=== PATIENT | male | born 1960 | race Caucasian/White ===

== ENCOUNTER 2020-08-03 06:36 | Emergency (ER) | payer SELFPAY ==
[2020-08-03 06:41] VITALS: BP 166/103; PULSE 84; RESP 28; TEMP 36.5; O2SAT 94; BMI 30.2
--- NOTE | 2020-08-03 07:06 | XRR_ITS ---
PROCEDURE INFORMATION: Exam: XR Chest, 1 View Exam date and time: 08/03/2020 7:17 AM Age: 60 years old Clinical indication: Dyspnea TECHNIQUE: Imaging protocol: XR of the chest Views: 1 view. COMPARISON: CR Chest 1 [place] [id number] 05/29/2019 9:48 AM FINDINGS: Lungs: No consolidation. Pleural space: No pleural effusion. No pneumothorax. Heart/Mediastinum: No cardiomegaly. Bones/joints: No acute fracture. Postsurgical changes of the left humerus. XR/XR chest 1V portable [id number] IMPRESSION: No acute findings.
--- NOTE | 2020-08-03 07:08 | ECG_ITS ---
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 Measurements Intervals [place] Rate: 69 P: 61 TN: 181 QRS: 9 QRSD: 87 T: 45 QT: 386 QTc: 414 Interpretive Statements SINUS RHYTHM INFERIOR MYOCARDIAL INFARCTION [40+ ms Q WAVE AND/OR ST/T ABNORMALITY IN II/aVF], PROBABLY OLD Compared to ECG 05/29/2019 09:30:56 Sinus tachycardia no longer present Electronically Signed On 08-04-2020 19:16:24 CDT by Richmond Garcia M.D. [id number]
[2020-08-03 07:34] LABS: Basophils # 0.1 10^3/uL (0.0-0.1); Eosinophils # 0.1 10^3/uL (0.0-0.8); Eosinophils % 1.1 %; Hematocrit 44.1 % (42.0-52.0); Hemoglobin 15.1 g/dL (11.7-16.6); Lymphocytes # 1.4 10^3/uL (0.8-4.8); Lymphocytes % 23.1 %; Mean Corpuscular HGB Conc 34.2 g/dL (30.0-36.0); Mean Corpuscular Hemoglobin 32.3 pg (28.0-34.0); Mean Corpuscular Volume 94.4 fL (80-94); Mean Platelet Volume 9.6 fL (7.4-10.4); Monocytes % 16.6 %; Neutrophils # 3.59 10^3/uL (1.8-7.7); Neutrophils % 57.9 %; Nucleated Red Blood Cells % 0 %; Platelet Count 248 10^3/cmm (130-400); Red Blood Count 4.67 10^6/uL (4.1-5.3); Red Cell Distribution Width 12.1 % (12.1-15.1); White Blood Count 6.2 10^3/uL (4.0-10.0)
[2020-08-03 07:45] LABS: INR 1.03 (0.8-1.2)
[2020-08-03 08:03] VITALS: BP 168/105; PULSE 93; RESP 27; O2SAT 97
--- NOTE | 2020-08-03 08:03 | PC.NURSE ---
Upon ED rounding, patient reported having friends over at house last night, feeling funny after his friends left and wondering if they had put something in his beer. Patient appears physically restless with constant facial and body movements. Report having high anxiety which he does not take any medications for.
[2020-08-03 08:05] LABS: Lactic Sepsis W/Reflex 1.5 mmol/L (0.5-2.2); Troponin(5th) Baseline 10 ng/L (0-15)
[2020-08-03 08:05] LABS: Add Urine Microscopic? NO
[2020-08-03 08:08] LABS: Bilirubin Urine Neg (Negative); Blood Urine Neg (Negative); Glucose Urine UA Norm (Normal); Ketones Urine 1+ (Negative); Leukocyte Esterase Urine Negative (Negative); Nitrate Urine Negative (Negative); Protein Urine Neg (Negative); Specific Gravity, Urine 1.025 (1.005-1.030); Urine Appearance Clear (CLEAR); Urine Color Dark Yellow (Yellow); Urobilinogen Urine Norm (Negative); pH Urine 5 (5-7)
[2020-08-03 08:14] LABS: Alanine Aminotransferase 102 U/L (0-41); Albumin Level 4.1 g/dL (3.5-5.2); Alkaline Phosphatase 90 IU/L (40-130); Anion Gap 18.1 (5-19); Aspartate Amino Transferase 62 U/L (0-40); Blood Urea Nitrogen 15 mg/dL (8-23); Calcium 8.6 mg/dL (8.5-10.5); Carbon Dioxide 19 mmol/L (22-29); Chloride 103 mmol/L (98-107); Creatinine Clr Calc Pharmacy 126.1224; Globulin 3.6 g/dL (1.3-4.6); Glomerular Filtration Rate 98.3 mL/min (90-130); Glucose 138 mg/dL (65-115); Magnesium 2.2 mg/dL (1.7-2.3); NT Pro B Type Natriuretic Pept 75 pg/mL (0-125); Osmolality Calculated 285 mOsm/kg (285-295); Potassium 4.1 mmol/L (3.5-5.1); Sodium 136 mmol/L (136-145); Total Bilirubin 0.9 mg/dL (0.15-1.2); Total Protein 7.7 g/dL (6.6-8.7)
[2020-08-03 08:17] LABS: Amphetamines Screen Urine Positive (Negative); Barbiturates Screen Urine Negative (Negative); Benzodiazepines Screen Urine Negative (Negative); Cocaine Screen Urine Negative (Negative); Opiate Screen Urine Negative (Negative); PCP Screen Urine Negative (Negative); THC Screen Urine Negative (Negative)
--- NOTE | 2020-08-03 08:54 | ED_ITS ---
HPI - SOB/Dyspnea General: Chief Complaint: Shortness of Breath/Dyspnea Stated Complaint: fluid build up Time Seen by Provider: 08/03/20 07:03 History of Present Illness: HPI Narrative: This patient is a 60-year-old male who presents today complaining of some shortness of breath and fluid retention. He said he typically has some swelling in his legs but today the swelling in his legs is gone and it is all in his belly. He denies shortness of breath but ap pears to be a little short of breath. He said that is from wearing the mask. He is a little jittery and anxious. He says he thinks 1 of his buddies might of slipped something into his beer last night while they were playing cards. He denies chest pain. Denies a history of CHF or other cardiac issues. He does have high blood pressure and takes hydrochlorothiazide for that. He is not on any other fluid pills. MD elicited complaint: shortness of breath Onset (ago): day(s) (Just today) Timing: constant Associated symptoms: Reports abdominal pain; Deny chest pain, fever(s), nausea or vomiting Review of Systems General: Reports: 10 or more systems reviewed and unremarkable except in HPI and below Const: Denies: fever(s), chills, fatigue or malaise Eyes: Denies: change in vision ENMT: Denies: odynophagia Card: Denies: chest pain or swelling of feet/ankles Resp: Denies: dyspnea, productive cough or non-productive cough GI: Reports: abdominal pain and bloating; Denies: nausea or vomiting : Denies: flank pain Musc: Denies: neck pain or back pain Skin/Breast: Denies: rash Neuro: Denies: headache(s), numbness in extremities or weakness in extremities Ke/Lymph: Denies: easy bruising or easy bleeding PFS ED PFSH: Social History Smoking and tobacco status: former smoker Alcohol intake: current Alcohol intake frequency: 3 or more drinks per day Lives independently: Yes Household members: none Marital status: Single service: No Physical Exam Const: COMMON NORMALS: no acute distress, patient oriented x3, no limitations and alert GENERAL APPEARANCE: cooperative and anxious HENMT: HEAD & SCALP: normal to inspection FACE & SINUS: normal facial exam Eye: GENERAL EYE: appearance normal, both eyes and all related structures Neck/C-Spine: COMMON NORMALS: supple, no meningeal signs and no JVD Chest: COMMONS NORMALS: normal inspection of the chest Resp: COMMON NORMALS: normal respiratory effort, No use of accessory muscles and clear to auscultation bilaterally AUSCULTATION: clear to auscultation bilaterally Cardio: COMMON NORMALS: no JVD, regular rate, regular rhythm and No murmurs present (Cardio) RATE: regular rate RHYTHM: regular rhythm GI: COMMON NORMALS: Normal to inspection, nondistended, normoactive bowel sounds present and Soft to palpation INSPECTION: Yes normal to inspection AUSCULTATION: Yes normoactive bowel sounds PALPATION: Yes Soft to palpation and Yes Tenderness to palpation present (GI) (Mild, right upper quadrant) Back/Pelvis: COMMON NORMALS: thoracic and lumbar spine normal to inspection Extremity: COMMON NORMALS: normal to inspection Neuro: COMMON NORMALS: patient oriented x3, moves all extremities, no focal motor deficits and no sensory deficits noted SENSORIUM/ORIENTATION: Yes alert MENINGEAL SIGNS: Yes no meningeal signs Psych: COMMON NORMALS: mental status grossly normal, cooperative and normal affect Skin: COMMON NORMALS: no rashes or lesions noted and turgor normal GENERAL SKIN EXAM: no rashes or lesions noted and turgor normal Course ED course: Patient refused an abdominal US due to concern over cost. We discussed the need to get follow up and he says he will see Dr. Aden tomorrow. Vital Signs: Vital signs: Vital Signs Temperature 97.7 F 08/03/20 06:41 Pulse Rate 93 08/03/20 09:00 Respiratory Rate 22 H 08/03/20 09:00 Blood Pressure 166/110 08/03/20 09:00 Pulse Oximetry 97 08/03/20 09:00 MDM - SOB/Dyspnea Lab Data: Labs: Lab Results 08/03/20 08/03/20 08/03/20 Range/Units 07:24 07:24 07:24 WBC 6.2 (4.0-10.0) 10^3/ uL RBC 4.67 (4.1-5.3) 10^6/u L Hgb 15.1 (11.7-16.6) g/dL Hct 44.1 (42.0-52.0) % MCV 94.4 H (80-94) fL MCH 32.3 (28.0-34.0) pg MCHC 34.2 (30.0-36.0) g/dL RDW 12.1 (12.1-15.1) % Plt Count 248 (130-400) 10^3/c mm MPV 9.6 (7.4-10.4) fL Neut % (Auto) 57.9 % Lymph % (Auto) 23.1 % [place] % (Auto) 16.6 % Eos % (Auto) 1.1 % Baso % (Auto) 1.0 % Neut # (Auto) 3.59 (1.8-7.7) 10^3/u L Lymph # (Auto) 1.4 (0.8-4.8) 10^3/u L [place] # (Auto) 1.0 H (0.2-0.9) 10^3/u L Eos # (Auto) 0.1 (0.0-0.8) 10^3/u L Baso # (Auto) 0.1 (0.0-0.1) 10^3/u L Nucleated RBC % (a uto) 0 % Nucleated RBCs # 0.0 /100WBC PT 13.90 (12.1-14.9) SECO NDS INR 1.03 (0.8-1.2) Sodium 136 (136-145) mmol/L Potassium 4.1 (3.5-5.1) mmol/L Chloride 103 (98-107) mmol/L Carbon Dioxide 19 L (22-29) mmol/L Anion Gap 18.1 (5-19) BUN 15 (8-23) mg/dL Creatinine 0.8 (0.7-1.2) mg/dL GFR Calculation 98.3 (90-130) mL/min Glucose 138 H (65-115) mg/dL Calculated Osmolal ity 285 (285-295) mOsm/k g Lactic Acid (0.5-2.2) mmol/L Calcium 8.6 (8.5-10.5) mg/dL Magnesium 2.2 (1.7-2.3) mg/dL Total Bilirubin 0.9 (0.15-1.2) mg/dL AST 62 H (0-40) U/L ALT 102 H (0-41) U/L Alkaline Phosphata se 90 (40-130) IU/L Troponin T Baselin e (0-15) ng/L NT-Pro-B Natriuret Pep 75 (0-125) pg/mL Total Protein 7.7 (6.6-8.7) g/dL Albumin 4.1 (3.5-5.2) g/dL Globulin 3.6 (1.3-4.6) g/dL Urine Color (Yellow) Urine Appearance (CLEAR) Urine pH (5-7) Ur Specific Gravit y (1.005-1.030) Urine Protein (Negative) Urine Glucose (UA) (Normal) Urine Ketones (Negative) Urine Blood (Negative) Urine Nitrate (Negative) Urine Bilirubin (Negative) Urine Urobilinogen (Negative) mg/dL Ur Leukocyte Cherelle ase (Negative) Urine Opiates Scre en (Negative) ng/mL Ur Barbiturates Sc reen (Negative) ng/mL Ur Phencyclidine S crn (Negative) ng/mL Ur Amphetamines Sc reen (Negative) ng/mL U Benzodiazepines Scrn (Negative) ng/mL Urine Cocaine Scre en (Negative) ng/mL U Marijuana (THC) Screen (Negative) ng/mL 08/03/20 08/03/20 08/03/20 Range/Units 07:24 07:24 07:50 WBC (4.0-10.0) 10^3/ uL RBC (4.1-5.3) 10^6/u L Hgb (11.7-16.6) g/dL Hct (42.0-52.0) % MCV (80-94) fL MCH (28.0-34.0) pg MCHC (30.0-36.0) g/dL RDW (12.1-15.1) % Plt Count (130-400) 10^3/c mm MPV (7.4-10.4) fL Neut % (Auto) % Lymph % (Auto) % [place] % (Auto) % Eos % (Auto) % Baso % (Auto) % Neut # (Auto) (1.8-7.7) 10^3/u L Lymph # (Auto) (0.8-4.8) 10^3/u L [place] # (Auto) (0.2-0.9) 10^3/u L Eos # (Auto) (0.0-0.8) 10^3/u L Baso # (Auto) (0.0-0.1) 10^3/u L Nucleated RBC % (a uto) % Nucleated RBCs # /100WBC PT (12.1-14.9) SECO NDS INR (0.8-1.2) Sodium (136-145) mmol/L Potassium (3.5-5.1) mmol/L Chloride (98-107) mmol/L Carbon Dioxide (22-29) mmol/L Anion Gap (5-19) BUN (8-23) mg/dL Creatinine (0.7-1.2) mg/dL GFR Calculation (90-130) mL/min Glucose (65-115) mg/dL Calculated Osmolal ity (285-295) mOsm/k g Lactic Acid 1.5 (0.5-2.2) mmol/L Calcium (8.5-10.5) mg/dL Magnesium (1.7-2.3) mg/dL Total Bilirubin (0.15-1.2) mg/dL AST (0-40) U/L ALT (0-41) U/L Alkaline Phosphata se (40-130) IU/L Troponin T Baselin e 10 (0-15) ng/L NT-Pro-B Natriuret Pep (0-125) pg/mL Total Protein (6.6-8.7) g/dL Albumin (3.5-5.2) g/dL Globulin (1.3-4.6) g/dL Urine Color Dark yellow (Yellow) Urine Appearance Clear (CLEAR) Urine pH 5 (5-7) Ur Specific Gravit y 1.025 (1.005-1.030) Urine Protein Neg (Negative) Urine Glucose (UA) Norm (Normal) Urine Ketones 1+ H (Negative) Urine Blood Neg (Negative) Urine Nitrate Negative (Negative) Urine Bilirubin Neg (Negative) Urine Urobilinogen Norm (Negative) mg/dL Ur Leukocyte Cherelle ase Negative (Negative) Urine Opiates Scre en (Negative) ng/mL Ur Barbiturates Sc reen (Negative) ng/mL Ur Phencyclidine S crn (Negative) ng/mL Ur Amphetamines Sc reen (Negative) ng/mL U Benzodiazepines Scrn (Negative) ng/mL Urine Cocaine Scre en (Negative) ng/mL U Marijuana (THC) Screen (Negative) ng/mL 08/03/20 Range/Units 07:50 WBC (4.0-10.0) 10^3/ uL RBC (4.1-5.3) 10^6/u L Hgb (11.7-16.6) g/dL Hct (42.0-52.0) % MCV (80-94) fL MCH (28.0-34.0) pg MCHC (30.0-36.0) g/dL RDW (12.1-15.1) % Plt Count (130-400) 10^3/c mm MPV (7.4-10.4) fL Neut % (Auto) % Lymph % (Auto) % [place] % (Auto) % Eos % (Auto) % Baso % (Auto) % Neut # (Auto) (1.8-7.7) 10^3/u L Lymph # (Auto) (0.8-4.8) 10^3/u L [place] # (Auto) (0.2-0.9) 10^3/u L Eos # (Auto) (0.0-0.8) 10^3/u L Baso # (Auto) (0.0-0.1) 10^3/u L Nucleated RBC % (a uto) % Nucleated RBCs # /100WBC PT (12.1-14.9) SECO NDS INR (0.8-1.2) Sodium (136-145) mmol/L Potassium (3.5-5.1) mmol/L Chloride (98-107) mmol/L Carbon Dioxide (22-29) mmol/L Anion Gap (5-19) BUN (8-23) mg/dL Creatinine (0.7-1.2) mg/dL GFR Calculation (90-130) mL/min Glucose (65-115) mg/dL Calculated Osmolal ity (285-295) mOsm/k g Lactic Acid (0.5-2.2) mmol/L Calcium (8.5-10.5) mg/dL Magnesium (1.7-2.3) mg/dL Total Bilirubin (0.15-1.2) mg/dL AST (0-40) U/L ALT (0-41) U/L Alkaline Phosphata se (40-130) IU/L Troponin T Baselin e (0-15) ng/L NT-Pro-B Natriuret Pep (0-125) pg/mL Total Protein (6.6-8.7) g/dL Albumin (3.5-5.2) g/dL Globulin (1.3-4.6) g/dL Urine Color (Yellow) Urine Appearance (CLEAR) Urine pH (5-7) Ur Specific Gravit y (1.005-1.030) Urine Protein (Negative) Urine Glucose (UA) (Normal) Urine Ketones (Negative) Urine Blood (Negative) Urine Nitrate (Negative) Urine Bilirubin (Negative) Urine Urobilinogen (Negative) mg/dL Ur Leukocyte Cherelle ase (Negative) Urine Opiates Scre en Negative (Negative) ng/mL Ur Barbiturates Sc reen Negative (Negative) ng/mL Ur Phencyclidine S crn Negative (Negative) ng/mL Ur Amphetamines Sc reen Positive H (Negative) ng/mL U Benzodiazepines Scrn Negative (Negative) ng/mL Urine Cocaine Scre en Negative (Negative) ng/mL U Marijuana (THC) Screen Negative (Negative) ng/mL Discharge Plan Discharge Patient Disposition: Home Clinical Impression: Abdominal distension Condition: Stable Prescriptions: No Action acetaminophen [Tylenol Extra Strength] 500 mg tablet 500 mg PO QID PRNRF: 0 lisinopril 20 mg tablet 20 mg PO DAILY RF: 0 hydrochlorothiazide 25 mg tablet 25 mg PO DAILY RF: 0 citalopram [Celexa] 20 mg tablet 20 mg PO DAILY RF: 0 atorvastatin [Lipitor] 10 mg tablet 10 mg PO DAILY RF: 0 Discharge Orders: Discharge Order (Routine); Ordered 08/03/20 Ordered By: Marina Tejada Discharge Diet: Usual diet Discharge Activity: Resume usual activity Patient Instructions: Abdominal Pain (ED) Activity Restrictions/Additional Instructions: Be sure to see your doctor tomorrow for further evaluation. If you are getting worse in any way please return to the ER and let us complete her evaluation of your symptoms. Discharge Date/Time: 08/03/20 09:23 Coding Level of Care Code ED Packing Room Inspector for Ranig Fwd Exam Comprehensive
[2020-08-03 09:00] VITALS: BP 166/110; PULSE 93; RESP 22; O2SAT 97
== END 2020-08-03 09:23 | disposition home or self-care (01) ==
PROVIDERS: Emergency Provider Emergency Medicine
DX: R14.0 Abdominal distension (gaseous) (principal); Z87.891 Personal history of nicotine dependence
CPT/HCPCS: 12345; 71045; 80053; 80306; 81003; 83605; 83735; 83880; 84484; 85025; 85610; 93005; 99283

== ENCOUNTER → 2020-08-21 11:42 | Outpatient (BNVA) | payer SELFPAY | PROVIDERS: Visit Provider Internal Medicine | DX: B19.10 Unspecified viral hepatitis B without hepatic coma (principal); E11.9 Type 2 diabetes mellitus without complications; B19.20 Unspecified viral hepatitis C without hepatic coma; R63.4 Abnormal weight loss; Z86.19 Personal history of other infectious and parasitic diseases; F10.10 Alcohol abuse, uncomplicated; R18.8 Other ascites | CPT/HCPCS: 80053; 82105; 85025 ==

== ENCOUNTER → 2020-08-27 10:40 | Day surgery (SDC) | payer SELFPAY ==
--- NOTE | 2020-08-27 11:00 | US_ITS ---
WS: [id number] Abdominal ultrasound, limited. History: Evaluate for ascites. Comparison: None. All 4 quadrants are imaged by ultrasound to evaluate for ascites. No ascites identified. US/US abdomen limited [id number] IMPRESSION: No peritoneal ascites.
== END ==
PROVIDERS: Visit Provider Internal Medicine
DX: B19.10 Unspecified viral hepatitis B without hepatic coma (principal); R18.8 Other ascites
CPT/HCPCS: 76705

== ENCOUNTER 2021-07-09 22:52 | Inpatient (IN) | payer MEDICAID, SELFPAY ==
[2021-07-09 23:07] VITALS: BMI 28.8
[2021-07-09 23:19] VITALS: BP 136/91; PULSE 97; RESP 18; TEMP 36.7; O2SAT 97
[2021-07-09] MEDS: nicotine 2 mg Gum BUCCAL (23:39)
[2021-07-10 00:43] LABS: Add Urine Microscopic? NO; Charge for UA Resulting for Rev
[2021-07-10 01:06] LABS: Bilirubin Urine Neg (Negative); Blood Urine Neg (Negative); Glucose Urine UA Norm (Normal); Ketones Urine Negative (Negative); Leukocyte Esterase Urine Negative (Negative); Nitrate Urine Negative (Negative); Protein Urine Neg (Negative); Urine Appearance Clear (CLEAR); Urine Color Yellow (Yellow); Urobilinogen Urine Norm (Negative); pH Urine 6.5 (5-7)
[2021-07-10 02:49] LABS: Amphetamines Screen Urine Negative (Negative); Barbiturates Screen Urine Negative (Negative); Benzodiazepines Screen Urine Negative (Negative); Cocaine Screen Urine Negative (Negative); Opiate Screen Urine Negative (Negative); PCP Screen Urine Negative (Negative); THC Screen Urine Negative (Negative)
[2021-07-10 06:00] VITALS: BP 130/87; PULSE 84; RESP 16; TEMP 36.9; O2SAT 98
[2021-07-10] MEDS: nicotine 2 mg Gum BUCCAL ×2 (06:58→19:46)
[2021-07-10] MEDS: ibuprofen 800 mg tablet PO ×2 (06:58→13:40)
--- NOTE | 2021-07-10 07:12 | PM.NHP ---
Providers/Chief Complaint Admitting Physician: Jose Ball MD Chief Complaint: si/substance abuse HPI NPU History of Present Illness Marcos Lazar is a 61 year old male who presented to an outside hospital with affidavits reporting that he was labile, tearful, threatening and apologizing almost all at once. He reported he had guns at home and needed help with his mood and addiction or he was going to kill himself with one of his guns. He had multiple affidavits and everything notarized but once that short of completing a 96-hour hold and he was transferred to [facility] and admitted to the neuropsychiatric unit for definitive treatment of those issues. He presents today reporting that he had 1 previous psychiatric admission here about 7 to 8 years ago. Since of that admission back in 2012 was noted. He denies outpatient services he reports he has had a history of being on medication but nothing recently. He reports he been on medication for depression and anxiety. He denies any previous suicide attempts. He reports that he smokes about a pack and a half of cigarettes a day, has had alcohol off and on, marijuana denied he denied other illicit drugs except methamphetamine. His blood alcohol was 132 at the outside hospital and his UDS was negative but he reports he has struggled with methamphetamine with previous daily difficulties but now is been headedness. He is never to rehab and reports he had 2 DUIs the last 1 was maybe 5+ years ago. He reports his been 3 days without drinks that he got a tallboy that he did not follow with a bunch of whiskey and he wonders if he got alcohol poisoning and was just feeling strange at the time that he was admitted. He denies current lethality and saying that he feels better now wants to be discharged. Psychiatric history: As above. Substance abuse history: As above. Family history: He endorsed mental health issues on his mom's side denied mental health issues on his father side, addiction issues on either side of the family but does report he had uncles on his mom side of committed suicide. Developmental history: There were no problems with the , or delivery, learned to walk and talk and met developmental milestones on time, and denies need for speech therapy, learning support, emotional support or special education classes. Psychosocial history: He reports his parents were getting he was born and they have 3 sons of which he is the middle son. He reports his childhood was really good and he denies emotional, physical or sexual abuse. He reports that he made it to the 12th grade and ultimately got his GED. He endorses being heterosexual with his long relationship being 6 years. He is been one time once, has no children, is never in the and reports that he goes to the [employer]. He reports that he worked for 18 years for [employer] and lives in an apartment alone. Legal history: He reports he been in half-way before but the longest x3 days. Medical history: He reports he is concerned that he has cirrhosis. Meds NPU Home Medications Medication Instructions Recorded Confirmed Last Taken Type ibuprofen [Motrin] 800 mg PO Q6H PRN 07/09/21 07/09/21 07/09/21 09:00 History Allergies Allergy/AdvReac Type Severity Reaction Status Date / Time No Known Allergies Allergy Verified 08/21/20 10:21 PFS NPU PFSH: Social History (Updated 08/21/20 @ 10:23 by RELL Small) Smoking and tobacco status: former smoker Alcohol intake: current Alcohol intake frequency: 3 or more drinks per day Lives independently: Yes Household members: none Marital status: Single service: No History of recent travel: No Mental Status Exam MSE Comments: This is a overweight older white male with a bald head and hospital scrubs with adequate grooming and limited eye contact. No abnormal movements except for mild ataxia of gait and mild psychomotor retardation cooperative with exam in mild distress. Speech was decreased rate and volume. Mood good, affect slightly subdued. Thought process organized. Thought content: Patient denied suicidal or homicidal ideation, there are no delusions reported or noted, he denies any auditory or visual hallucinations. Attention concentration were intact and memory appeared mostly reliable but none were formally tested. He is alert and oriented x3. Insight and judgment are limited and impulse control is impaired. Vitals/I&O/Wt Last Vital Signs Temp 98.4 F 07/10/21 06:00 Pulse 84 07/10/21 06:00 Resp 16 07/10/21 06:00 BP 130/87 07/10/21 06:00 Pulse Ox 98 07/10/21 06:00 Weight last 48 hrs Weight 102 kg Weight 102 kg A&P Assessment and plan (1) Ascites: Status: Acute (2) ETOH abuse: Status: Acute (3) Hepatitis B: Status: Acute Qualifiers: Viral hepatitis chronicity: chronic Hepatic coma status: without hepatic coma (4) Hepatitis C virus infection cured after antiviral drug therapy: Status: Acute (5) Methamphetamine abuse: Status: Acute (6) Depression: Status: Acute (7) Anxiety: Status: Acute Additional A&P Information This is a 61-year-old white male with a long history of addiction and depression and anxiety who presents with active alcohol use expressing concerns about his addiction in general and wanting help at an outside hospital with threats of shooting himself with a gun who presents now reporting that he feels fine and it must of an alcohol poisoning and he would like to discharge. 1. Continue current medication. We will continue to explore possible medication choices. 2. Continue every 15 minute checks for safety. 3. Encourage individual, group and milieu therapies. 4. Encourage sober living treatment after discharge at the highest level of care to which he is willing to commit. Involuntary Hold Information 96 Hour Hold: 96 Hour Involuntary Admission: No Attestations NPU Medical Necessity Statement*: Inpatient hospitalization is medically necessary and the clinically appropriate intervention at this time. We will monitor medications and make changes as indicated. Patient will be in the hospital for over two midnights. Likely length of stay 3 to 5 days. Coding Level of Care Code Acute Web Coordinator for Ramonita Lantigua Diagnoses Ascites R18.8 ETOH abuse F10.10 Hepatitis B B19.10 Viral hepatitis chronicity: chronic Hepatic coma status: without hepatic coma Hepatitis C virus infection cured after antiviral drug therapy Z86.19 Methamphetamine abuse F15.10 Depression F32.9 Anxiety F41.9
[2021-07-10] MEDS: multivitamin therapeutic Tablet 1 TAB PO (09:58)
[2021-07-10] MEDS: thiamine 100 mg Tablet PO (09:58)
[2021-07-10] MEDS: folic acid 1 mg Tablet PO (09:59)
[2021-07-10] MEDS: nicotine 21 mg Patch 1 PATCH TRANSDERMA (10:00)
[2021-07-10 14:00] VITALS: BP 129/74; PULSE 62; RESP 17; TEMP 36.3; O2SAT 97
[2021-07-10] MEDS: citalopram 20 mg Tablet PO (19:45)
[2021-07-10 22:00] VITALS: BP 137/87; PULSE 83; RESP 18; TEMP 36.8; O2SAT 96
[2021-07-11] MEDS: ibuprofen 800 mg tablet PO ×3 (04:37→22:05)
[2021-07-11 06:00] VITALS: BP 121/78; PULSE 64; RESP 17; TEMP 36.9; O2SAT 96
[2021-07-11] MEDS: folic acid 1 mg Tablet PO (09:47)
[2021-07-11] MEDS: nicotine 21 mg Patch 1 PATCH TRANSDERMA (09:47)
[2021-07-11] MEDS: thiamine 100 mg Tablet PO (09:47)
[2021-07-11] MEDS: citalopram 20 mg Tablet PO (09:47)
[2021-07-11] MEDS: multivitamin therapeutic Tablet 1 TAB PO (09:47)
[2021-07-11 14:00] VITALS: BP 131/72; PULSE 61; RESP 17; TEMP 36.5; O2SAT 97
--- NOTE | 2021-07-11 18:42 | PM.NPN ---
Subjective NPU Subjective: Interval history: Patient presents today continue to focus on discharge. Not expressing much interest in medications or treatment. We agreed we would reach out to family to see whether they agreed this was a drunken mistake or whether they have greater concerns about his current safety and then consider discharge in the next 48 hours. Mental Status Exam MSE Comments: This is a overweight older white male with a bald head and hospital scrubs with adequate grooming and limited eye contact. No abnormal movements except for mild psychomotor retardation. Cooperative with exam in no acute distress. Speech was normal rate and decreased volume. Mood good, affect slightly subdued. Thought process organized. Thought content: Patient denied suicidal or homicidal ideation, there are no delusions reported or noted, he denies any auditory or visual hallucinations. Attention concentration were intact and memory appeared mostly reliable but none were formally tested. He is alert and oriented x3. Insight and judgment are limited and impulse control is limited. Vitals/I&O/Wt Last Vital Signs Temp 98.3 F 07/11/21 20:01 Pulse 72 07/11/21 20:01 Resp 17 07/11/21 20:01 BP 141/86 07/11/21 20:01 Pulse Ox 96 07/11/21 20:01 A&P Additional A&P Information (1) Ascites: (2) ETOH abuse: (3) Hepatitis B: (4) Hepatitis C virus infection cured after antiviral drug therapy: (5) Methamphetamine abuse: (6) Depression: (7) Anxiety: Additional A&P Information This is a 61-year-old white male with a long history of addiction and depression and anxiety who presents with active alcohol use expressing concerns about his addiction in general and wanting help at an outside hospital with threats of shooting himself with a gun who presents now reporting that he feels fine and it must of an alcohol poisoning and he would like to discharge. 1. Continue current medication. We will continue to explore possible medication choices. 2. Continue every 15 minute checks for safety. 3. Encourage individual, group and milieu therapies. 4. Encourage sober living treatment after discharge at the highest level of care to which he is willing to commit. Involuntary Hold Information 96 Hour Hold: 96 Hour Involuntary Admission: No Attestations NPU Medical Necessity Statement*: Inpatient hospitalization is medically necessary and the clinically appropriate intervention at this time. We will monitor medications and make changes as indicated. Likely length of stay 1-4 days. Coding Level of Care Code Acute Software Design Analyst for Ramonita Lantigua
[2021-07-11 20:01] VITALS: BP 141/86; PULSE 72; RESP 17; TEMP 36.8; O2SAT 96
[2021-07-11] MEDS: nicotine 2 mg Gum BUCCAL (22:05)
[2021-07-12 05:46] VITALS: BP 132/70; PULSE 71; RESP 17; TEMP 36.6; O2SAT 99
[2021-07-12] MEDS: multivitamin therapeutic Tablet 1 TAB PO (09:41)
[2021-07-12] MEDS: thiamine 100 mg Tablet PO (09:41)
[2021-07-12] MEDS: citalopram 20 mg Tablet PO (09:41)
[2021-07-12] MEDS: folic acid 1 mg Tablet PO (09:41)
[2021-07-12] MEDS: ibuprofen 800 mg tablet PO ×2 (09:49→18:48)
--- NOTE | 2021-07-12 10:29 | P.PN_ITS ---
Subjective NPU Subjective: Interval history: Presents today continuing to give the same report. He continues to say that he would be safe upon discharge and is suggesting that there are not weapons. Clearly in the affidavits there are concerns raised about the access E we discussed the treatment team would continue the morning and be able to attempt to get the collateral information necessary for us to feel comfortable with discharging. Mental Status Exam MSE Comments: This is a overweight older white male with a bald head and hospital scrubs with adequate grooming and limited eye contact. No abnormal movements except for mild psychomotor retardation. Cooperative with exam in no acute distress. Speech was normal rate and decreased volume. Mood good, affect brighter. Thought process organized. Thought content: Patient denied suicidal or homicidal ideation, there are no delusions reported or noted, he denies any auditory or visual hallucinations. Attention concentration were intact and memory appeared mostly reliable but none were formally tested. He is alert and oriented x3. Insight and judgment are limited, but improving and impulse control is limited. Vitals/I&O/Wt Last Vital Signs Temp 97.9 F 07/12/21 05:46 Pulse 71 07/12/21 05:46 Resp 17 07/12/21 05:46 BP 132/70 07/12/21 05:46 Pulse Ox 99 07/12/21 05:46 Weight last 48 hrs Weight 84.912 kg Weight 84.912 kg Weight 83.518 kg Weight 102 kg A&P Additional A&P Information (1) Ascites: (2) ETOH abuse: (3) Hepatitis B: (4) Hepatitis C virus infection cured after antiviral drug therapy: (5) Methamphetamine abuse: (6) Depression: (7) Anxiety: Additional A&P Information This is a 61-year-old white male with a long history of addiction and depression and anxiety who presents with active alcohol use expressing concerns about his addiction in general and wanting help at an outside hospital with threats of shooting himself with a gun who presents now reporting that he feels fine and it must of an alcohol poisoning and he would like to discharge. 1. Continue current medication. 2. Continue every 15 minute checks for safety. 3. Encourage individual, group and milieu therapies. 4. Encourage sober living treatment after discharge at the highest level of care to which he is willing to commit. 5. The vessel collateral information, identify presence of guns or not, and safety for discharge Involuntary Hold Information 96 Hour Hold: 96 Hour Involuntary Admission: No Attestations NPU Medical Necessity Statement*: Inpatient hospitalization is medically necessary and the clinically appropriate intervention at this time. We will monitor medications and make changes as indicated. Likely length of stay 1-3 days. 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
[2021-07-12 14:00] VITALS: BP 128/72; PULSE 54; RESP 17; TEMP 36.7; O2SAT 97
[2021-07-12 20:10] VITALS: BP 116/81; PULSE 81; RESP 19; TEMP 36.6; O2SAT 93
[2021-07-12] MEDS: nicotine 2 mg Gum BUCCAL (21:42)
[2021-07-12] MEDS: hyDROXYzine 25 mg Capsule 50 MG PO (21:44)
[2021-07-12] MEDS: trazodone 50 mg Tablet PO (21:44)
[2021-07-13 06:00] VITALS: BP 108/70; PULSE 68; RESP 16; TEMP 37.4; O2SAT 97
[2021-07-13] MEDS: citalopram 20 mg Tablet PO (08:56)
[2021-07-13] MEDS: multivitamin therapeutic Tablet 1 TAB PO (08:56)
[2021-07-13] MEDS: folic acid 1 mg Tablet PO (08:56)
[2021-07-13] MEDS: thiamine 100 mg Tablet PO (08:56)
[2021-07-13] MEDS: nicotine 21 mg Patch 1 PATCH TRANSDERMA (08:57)
[2021-07-13] MEDS: ibuprofen 800 mg tablet PO ×2 (10:51→17:20)
[2021-07-13 14:00] VITALS: BP 131/76; PULSE 66; RESP 18; TEMP 36.2; O2SAT 96
--- NOTE | 2021-07-13 18:48 | P.PN_ITS ---
Subjective NPU Subjective: Interval history: I spoke with Dr. Ball and met with the treatment team to discuss the patient's progress. He was sent here because he had made credible threats of shooting himself with a gun. He has been improving while here. We will need to contact his family members to make sure the guns have been removed from the home. Mental Status Exam MSE Comments: This is a overweight older white male with a bald head and hospital scrubs with adequate grooming and limited eye contact. No abnormal movements except for mild psychomotor retardation. Cooperative with exam in no acute distress. Speech was normal rate and decreased volume. Mood good, affect brighter. Thought process organized. Thought content: Patient denied suicidal or homicidal ideation, there are no delusions reported or noted, he denies any auditory or visual hallucinations. Attention concentration were intact and memory appeared mostly reliable but none were formally tested. He is alert and oriented x3. Insight and judgment are limited, but improving and impulse control is limited. Vitals/I&O/Wt Last Vital Signs Temp 98.4 F 07/14/21 06:00 Pulse 55 L 07/14/21 06:00 Resp 19 H 07/14/21 06:00 BP 131/77 07/14/21 06:00 Pulse Ox 97 07/14/21 06:00 Weight last 48 hrs Weight 84.912 kg Weight 84.912 kg A&P Assessment and plan (1) Depression: Status: Acute (2) Anxiety: Status: Acute (3) Methamphetamine abuse: Status: Acute (4) Ascites: Status: Acute (5) ETOH abuse: Status: Acute (6) Hepatitis B: Status: Acute Qualifiers: Viral hepatitis chronicity: chronic Hepatic coma status: without hepatic coma (7) Hepatitis C virus infection cured after antiviral drug therapy: Status: Acute Additional A&P Information This is a 61-year-old white male with a long history of addiction and depression and anxiety who presents with active alcohol use expressing concerns about his addiction in general and wanting help at an outside hospital with threats of shooting himself with a gun who presents now reporting that he feels fine and it must of an alcohol poisoning and he would like to discharge. 1. Continue current medication. 2. Continue every 15 minute checks for safety. 3. Encourage individual, group and milieu therapies. 4. Encourage sober living treatment after discharge at the highest level of care to which he is willing to commit. 5. The vessel collateral information, identify presence of guns or not, and safety for discharge Involuntary Hold Information 96 Hour Hold: 96 Hour Involuntary Admission: No Attestations NPU Medical Necessity Statement*: Inpatient hospitalization is medically necessary and the clinically appropriate intervention at this time. We will monitor medications and make changes as indicated. Likely length of stay 1-3 days. 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
[2021-07-13 21:35] VITALS: BP 109/68; PULSE 82; RESP 20; TEMP 36.6; O2SAT 97
[2021-07-13] MEDS: trazodone 50 mg Tablet PO (21:41)
[2021-07-13] MEDS: nicotine 2 mg Gum BUCCAL (21:41)
[2021-07-13] MEDS: hyDROXYzine 25 mg Capsule 50 MG PO (21:41)
[2021-07-14 06:00] VITALS: BP 131/77; PULSE 55; RESP 19; TEMP 36.9; O2SAT 97
[2021-07-14] MEDS: citalopram 20 mg Tablet PO (08:49)
[2021-07-14] MEDS: folic acid 1 mg Tablet PO (08:49)
[2021-07-14] MEDS: thiamine 100 mg Tablet PO (08:50)
[2021-07-14] MEDS: multivitamin therapeutic Tablet 1 TAB PO (08:50)
[2021-07-14] MEDS: nicotine 21 mg Patch 1 PATCH TRANSDERMA (08:50)
[2021-07-14] MEDS: ibuprofen 800 mg tablet PO (11:57)
--- NOTE | 2021-07-14 12:17 | NPU.GN ---
[facility] Group Topic:Thought Processing General Mood of Group: Patient did not come to group today.
--- NOTE | 2021-07-14 12:26 | PM.NDC ---
Diagnoses at Discharge Discharge Diagnosis (1) Depression: Status: Resolved (2) Anxiety: Status: Resolved (3) Methamphetamine abuse: Status: Resolved (4) Ascites: Status: Resolved (5) ETOH abuse: Status: Resolved (6) Hepatitis B: Status: Acute Qualifiers: Hepatic coma status: without hepatic coma Viral hepatitis chronicity: chronic (7) Hepatitis C virus infection cured after antiviral drug therapy: Status: Acute Reason for Visit Reason for Visit: si/substance abuse Brief History: Marcos Lazar is a 61 year old male who presented to an outside hospital with affidavits reporting that he was labile, tearful, threatening and apologizing almost all at once. He reported he had guns at home and needed help with his mood and addiction or he was going to kill himself with one of his guns. He had multiple affidavits and everything notarized but once that short of completing a 96-hour hold and he was transferred to [facility] and admitted to the neuropsychiatric unit for definitive treatment of those issues. He presents today reporting that he had 1 previous psychiatric admission here about 7 to 8 years ago. Since of that admission back in 2012 was noted. He denies outpatient services he reports he has had a history of being on medication but nothing recently. He reports he been on medication for depression and anxiety. He denies any previous suicide attempts. He reports that he smokes about a pack and a half of cigarettes a day, has had alcohol off and on, marijuana denied he denied other illicit drugs except methamphetamine. His blood alcohol was 132 at the outside hospital and his UDS was negative but he reports he has struggled with methamphetamine with previous daily difficulties but now is been headedness. He is never to rehab and reports he had 2 DUIs the last 1 was maybe 5+ years ago. He reports his been 3 days without drinks that he got a tallboy that he did not follow with a bunch of whiskey and he wonders if he got alcohol poisoning and was just feeling strange at the time that he was admitted. He denies current lethality and saying that he feels better now wants to be discharged. Hospital Course Hospital Course The patient was admitted to the neuropsychiatric unit for definitive treatment of these issues. On the unit he slowly acclimated to the individual, group and milieu therapies. There were some mild psychotic symptoms present initially which resolved with the medication being restarted. He was receptive to treatment team recommendations and showed modest improvement and was able to contract for safety prior to discharge. During the hospitalization, patient had routine laboratory studies which were within normal limits except for few outliers. Additionally there was a general medical evaluation which was also within normal limits and revealed no new acute processes. Discharge Summary: At the time of discharge, psychosis and lethality were denied. Mood and anxiety were well managed. Patient endorsed a plan to avoid all drugs of abuse and follow-up with the aftercare recommendations of the treatment team. Patient was evaluated and deemed to be absent credible lethality, and had achieved the maximum benefit from an inpatient hospitalization, so was discharged. Involuntary Hold Information 96 Hour Hold: 96 Hour Involuntary Admission: No Mental Status Exam MSE Comments: This is a overweight older white male with a bald head and hospital scrubs with adequate grooming and limited eye contact. No abnormal movements except for mild psychomotor retardation. Cooperative with exam in no acute distress. Speech was normal rate and decreased volume. Mood good, affect brighter. Thought process organized. Thought content: Patient denied suicidal or homicidal ideation, there are no delusions reported or noted, he denies any auditory or visual hallucinations. Attention concentration were intact and memory appeared mostly reliable but none were formally tested. He is alert and oriented x3. Insight and judgment are improving and impulse control is improving too. Discharge Data Vitals: Last Vital Signs Temp 98.4 F 07/14/21 16:01 Pulse 55 L 07/14/21 16:01 Resp 19 H 07/14/21 16:01 BP 131/77 07/14/21 16:01 Pulse Ox 97 07/14/21 16:01 Discharge Plan Discharge Patient Disposition: Home Condition: Stable Prescriptions: New citalopram 20 mg Tablet 20 mg PO DAILY 30 Days RF: 0 hydroxyzine pamoate 25 mg Capsule 50 mg PO BEDTIME PRN (Reason: Anxiety) 30 Days Qty: 60 RF: 0 Continued ibuprofen 800 mg Tablet 800 mg PO Q6H PRN (Reason: Pain (Scale Score 4-6)) 10 Days Qty: 40 RF: 0 Discharge Orders: Discharge Order (Routine); Ordered 07/14/21 Ordered By: Prosper Adkins Discharge Diet: Usual diet Discharge Activity: Resume usual activity Patient Instructions: Depression (DC), Abuse of Alcohol (DC), Anxiety (DC), Opioid Safety Discharge Attestations NPU Time Spent in Discharge Care*: less than 30 min Specific Discharge Activities: Specific discharge activities: educating patient, discussing with shelter case manager/social workers/dc planners, documenting/other paperwork and evaluating patient/reviewing data Status at Discharge: Cognitive status at discharge: cognitively intact, Behavioral status at discharge: cooperative, Functional status at discharge: independent ambulation Overall status at discharge: patient is back to baseline Coding Level of Care Code Acute Chg FW DC note Diagnoses Depression F32.9 Anxiety F41.9 Methamphetamine abuse F15.10 Ascites R18.8 ETOH abuse F10.10 Hepatitis B B19.10 Hepatic coma status: without hepatic coma Viral hepatitis chronicity: chronic Hepatitis C virus infection cured after antiviral drug therapy Z86.19
[2021-07-14 16:01] VITALS: BP 131/77; PULSE 55; RESP 19; TEMP 36.9; O2SAT 97
== END 2021-07-14 18:00 | disposition home or self-care (01) | DRG 881 ==
PROVIDERS: Admitting Provider Psychiatry & Neurology Psychiatry; Visit Provider Psychiatry & Neurology Child & Adolescent Psychiatry
DX: F32.9 Major depressive disorder, single episode, unspecified (principal); R18.8 Other ascites; B18.1 Chronic viral hepatitis B without delta-agent; F41.9 Anxiety disorder, unspecified; F15.10 Other stimulant abuse, uncomplicated; F17.210 Nicotine dependence, cigarettes, uncomplicated; F10.10 Alcohol abuse, uncomplicated; Y90.6 Blood alcohol level of 120-199 mg/100 ml; E66.3 Overweight; Z81.8 Family history of other mental and behavioral disorders; Z81.1 Family history of alcohol abuse and dependence; Z86.19 Personal history of other infectious and parasitic diseases; Z68.24 Body mass index [BMI] 24.0-24.9, adult
CPT/HCPCS: 80306; 81003

== ENCOUNTER 2021-08-22 00:15 | Emergency (ER) | payer MEDICAID, SELFPAY ==
[2021-08-22 00:09] VITALS: BP 129/76; PULSE 78; RESP 17; O2SAT 96
[2021-08-22 00:41] VITALS: BP 137/75; PULSE 79; RESP 18; TEMP 36.7; O2SAT 98; BMI 25.0
--- NOTE | 2021-08-22 00:55 | ECG_ITS ---
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 Measurements Intervals [place] Rate: 72 P: 73 W[place]: 187 QRS: 17 QRSD: 89 T: 59 QT: 377 QTc: 413 Interpretive Statements SINUS RHYTHM Compared to ECG 08/03/2020 07:39:04 Myocardial infarct finding no longer present Electronically Signed On 08-22-2021 21:29:38 CDT by Richmond Garcia M.D. [email or web address]
--- NOTE | 2021-08-22 00:55 | XRR_ITS ---
PROCEDURE INFORMATION: Exam: XR Chest Exam date and time: 08/22/2021 12:55 AM Age: 61 years old Clinical indication: Patient HX: Medical clearance for psych transfer. Chronic smoking history. ; Additional info: Psychiatric symptoms TECHNIQUE: Imaging protocol: XR of the chest. Views: 1 view. COMPARISON: CR XR chest 1V portable [id number] 08/03/2020 7:08 AM FINDINGS: Lungs: Stable COPD . Pleural spaces: Unremarkable. No pleural effusion. No pneumothorax. Heart/Mediastinum: Unremarkable. No cardiomegaly. Bones/joints: Mild thoracic spondylosis. XR/XR chest 1V portable [id number] IMPRESSION: Stable COPD . Radiation Dose CTDIVOL = (mGy): DLP = (mGy-cm)
[2021-08-22 01:00] LABS: Basophils # 0.1 10^3/uL (0.0-0.1); Basophils % 1.4 %; Eosinophils # 0.2 10^3/uL (0.0-0.8); Eosinophils % 2.2 %; Hematocrit 44.6 % (42.0-52.0); Hemoglobin 14.6 g/dL (11.7-16.6); Lymphocytes # 2.9 10^3/uL (0.8-4.8); Lymphocytes % 41.2 %; Mean Corpuscular HGB Conc 32.7 g/dL (30.0-36.0); Mean Corpuscular Hemoglobin 31.4 pg (28.0-34.0); Mean Corpuscular Volume 95.9 fl (80-94); Mean Platelet Volume 9.6 fL (7.4-10.4); Monocytes # 0.6 10^3/uL (0.2-0.9); Monocytes % 9.1 %; Neutrophils # 3.15 10^3/uL (1.8-7.7); Neutrophils % 45.7 %; Nucleated Red Blood Cells % 0 %; Platelet Count 243 10^3/cmm (130-400); Red Blood Count 4.65 10^6/uL (4.1-5.3); Red Cell Distribution Width 13.3 % (12.1-15.1); White Blood Count 6.9 10^3/uL (4.0-10.0)
--- NOTE | 2021-08-22 01:19 | ED_ITS ---
Documented by User: Mateusz Rodriguez DO 08/23/21 07:26 HPI - Alcohol General: Chief Complaint: Alcohol Stated Complaint: ETOH; SI Time Seen by Provider: 08/22/21 00:36 History of Present Illness: HPI narrative: 61-year-old male who presents after several days of drinking after waking from sleep. He was discharged from this facility's neuropsychiatric unit last week. He was admitted there for suicidal ideation and substance/alcohol abuse. He presents stating that he is suicidal again. He has been having thoughts. He states that he has multiple personalities. MD complaint: alcohol intoxication Chronic alcohol use: Yes Previous visits for alcohol intoxication: Yes Recent trauma: No Associated symptoms: Reports depression and suicidal ideation; Deny abdominal pain, nausea, seizure-like activity, syncope or vomiting Treatments prior to arrival: none Review of Systems Const: Denies: fever(s) or chills Eyes: Denies: change in vision Card: Denies: syncope Resp: Reports: non-productive cough ( Smoker's cough ); Denies: dyspnea or productive cough GI: Denies: abdominal pain, nausea or vomiting Neuro: Denies: seizure-like activity Psych: Reports: depression and suicidal ideation [facility] ED PFSH: Social History (Updated 08/21/20 @ 10:23 by RELL Small) Smoking and tobacco status: former smoker Alcohol intake: current Alcohol intake frequency: 3 or more drinks per day Lives independently: Yes Household members: none Marital status: Single service: No History of recent travel: No Physical Exam Const: COMMON NORMALS: no acute distress, patient oriented x3 and alert GENERAL APPEARANCE: cooperative; not ill appearing and not frail appearing Eye: COMMON NORMALS: Equal, round and reactive pupils present and EOMs intact bilaterally PUPIL: Yes Equal, round and reactive pupils present Chest: COMMONS NORMALS: normal inspection of the chest Resp: COMMON NORMALS: normal respiratory effort, No use of accessory muscles and clear to auscultation bilaterally AUSCULTATION: clear to auscultation bilaterally Cardio: COMMON NORMALS: regular rate and regular rhythm RATE: regular rate RHYTHM: regular rhythm GI: COMMON NORMALS: Normal to inspection, nondistended, normoactive bowel sounds present, Soft to palpation and non-tender PALPATION: Yes Soft to palpation Neuro: COMMON NORMALS: patient oriented x3 SENSORIUM/ORIENTATION: Yes alert Course Vital Signs: Vital signs: Vital Signs Temperature 98.0 F 08/23/21 02:13 Pulse Rate 74 08/23/21 09:34 Respiratory Rate 16 08/23/21 02:13 Blood Pressure 131/74 08/23/21 09:34 Pulse Oximetry 98 08/23/21 09:34 MDM - Alcohol MDM Narrative: Medical decision making narrative: 61-year-old male, intoxicated, presenting stating he wants to . He does not give a specific plan. He states I want to go to the psych unit This patient is quite intoxicated although otherwise medically stable at this point. He is hypokalemic, but this is repleted. He is able to stand, walk, and talk. He knows time date and situation. He has been compliant in the ER. Currently we have no beds available in our MPU. We are also not a geriatric psychiatry facility. We are attempting to contact geriatric psychiatry faci lities in the area for this patient a bed. {05:24} patient second alcohol level is only mildly decreased. We have faxed information to facilities in [place] and in [facility]. They are sara ling to look at them when alcohol level is down further. We will repeat an alcohol in 4 hours, and in the meantime continue to call. The patient will be checked out for Dr. Garcia at shift change for management to the patient's final destination. Lab Data: Labs: Lab Results 08/22/21 08/22/21 08/22/21 00:45 00:45 01:00 WBC 6.9 10^3/uL 10^3/ uL (4.0-10.0) RBC 4.65 10^6/uL 10^6 /uL (4.1-5.3) Hgb 14.6 g/dL g/dL (11.7-16.6) Hct 44.6 % % (42.0-52.0) MCV 95.9 fl H fl (80-94) MCH 31.4 pg pg (28.0-34.0) MCHC 32.7 g/dL g/dL (30.0-36.0) RDW 13.3 % % (12.1-15.1) Plt Count 243 10^3/cmm 10^3 /cmm (130-400) MPV 9.6 fL fL (7.4-10.4) Neut % (Auto) 45.7 % % Lymph % (Auto) 41.2 % % [place] % (Auto) 9.1 % % Eos % (Auto) 2.2 % % Baso % (Auto) 1.4 % % Neut # (Auto) 3.15 10^3/uL 10^3 /uL (1.8-7.7) Lymph # (Auto) 2.9 10^3/uL 10^3/ uL (0.8-4.8) [place] # (Auto) 0.6 10^3/uL 10^3/ uL (0.2-0.9) Eos # (Auto) 0.2 10^3/uL 10^3/ uL (0.0-0.8) Baso # (Auto) 0.1 10^3/uL 10^3/ uL (0.0-0.1) Nucleated RBC % (a uto) 0 % % Nucleated RBCs # 0.0 /100WBC /100W BC Sodium 141 mmol/L mmol/L (136-145) Potassium 3.2 mmol/L L mmol /L (3.5-5.1) Chloride 110 mmol/L H mmol /L (98-107) Carbon Dioxide 21 mmol/L L mmol/ L (22-29) Anion Gap 13.2 (5-19) BUN 8 mg/dL mg/dL (8-23) Creatinine 0.6 mg/dL L mg/dL (0.7-1.2) GFR Calculation 136.5 mL/min H mL /min (90-130) Glucose 89 mg/dL mg/dL (65-115) Calculated Osmolal ity 290 mOsm/kg mOsm/ kg (285-295) Calcium 7.4 mg/dL L mg/dL (8.5-10.5) Total Bilirubin 0.2 mg/dL mg/dL (0.15-1.2) AST 20 U/L U/L (0-40) ALT 30 U/L U/L (0-41) Alkaline Phosphata se 71 IU/L IU/L (40-130) Creatine Kinase Total Protein 6.3 g/dL L g/dL (6.6-8.7) Albumin 3.5 g/dL g/dL (3.5-5.2) Globulin 2.8 g/dL g/dL (1.3-4.6) TSH 0.50 uIU/mL uIU/m L (0.27-4.20) Urine Color Urine Appearance Urine pH Ur Specific Gravit y Urine Protein Urine Glucose (UA) Urine Ketones Urine Blood Urine Nitrate Urine Bilirubin Urine Urobilinogen Ur Leukocyte Cherelle ase Salicylates < 0.3 mg/dL L mg/ dL (3-10) Urine Opiates Scre en Acetaminophen < 5.0 ug/mL L ug/ mL (10-30) Ur Barbiturates Sc reen Ur Phencyclidine S crn Ur Amphetamines Sc reen U Benzodiazepines Scrn Urine Cocaine Scre en U Marijuana (THC) Screen Ethyl Alcohol 253 mg/dL H mg/dL (0-10) SARS-CoV-2 Ag (Rap id) Negative (Negative) 08/22/21 08/22/21 08/22/21 01:20 01:20 04:15 WBC RBC Hgb Hct MCV MCH MCHC RDW Plt Count MPV Neut % (Auto) Lymph % (Auto) [place] % (Auto) Eos % (Auto) Baso % (Auto) Neut # (Auto) Lymph # (Auto) [place] # (Auto) Eos # (Auto) Baso # (Auto) Nucleated RBC % (a uto) Nucleated RBCs # Sodium Potassium Chloride Carbon Dioxide Anion Gap BUN Creatinine GFR Calculation Glucose Calculated Osmolal ity Calcium Total Bilirubin AST ALT Alkaline Phosphata se Creatine Kinase 68 U/L U/L (39-308) Total Protein Albumin Globulin TSH Urine Color Yellow (Yellow) Urine Appearance Clear (CLEAR) Urine pH 5 (5-7) Ur Specific Gravit y 1.010 (1.005-1.030) Urine Protein Neg (Negative) Urine Glucose (UA) Norm (Normal) Urine Ketones Negative (Negative) Urine Blood Neg (Negative) Urine Nitrate Negative (Negative) Urine Bilirubin Neg (Negative) Urine Urobilinogen Norm mg/dL mg/dL (Negative) Ur Leukocyte Cherelle ase Negative (Negative) Salicylates Urine Opiates Scre en Negative ng/mL ng /mL (Negative) Acetaminophen Ur Barbiturates Sc reen Negative ng/mL ng /mL (Negative) Ur Phencyclidine S crn Negative ng/mL ng /mL (Negative) Ur Amphetamines Sc reen Negative ng/mL ng /mL (Negative) U Benzodiazepines Scrn Negative ng/mL ng /mL (Negative) Urine Cocaine Scre en Negative ng/mL ng /mL (Negative) U Marijuana (THC) Screen Negative ng/mL ng /mL (Negative) Ethyl Alcohol 222 mg/dL H mg/dL (0-10) SARS-CoV-2 Ag (Rap id) 08/22/21 12:07 WBC RBC Hgb Hct MCV MCH MCHC RDW Plt Count MPV Neut % (Auto) Lymph % (Auto) [place] % (Auto) Eos % (Auto) Baso % (Auto) Neut # (Auto) Lymph # (Auto) [place] # (Auto) Eos # (Auto) Baso # (Auto) Nucleated RBC % (a uto) Nucleated RBCs # Sodium Potassium Chloride Carbon Dioxide Anion Gap BUN Creatinine GFR Calculation Glucose Calculated Osmolal ity Calcium Total Bilirubin AST ALT Alkaline Phosphata se Creatine Kinase Total Protein Albumin Globulin TSH Urine Color Urine Appearance Urine pH Ur Specific Gravit y Urine Protein Urine Glucose (UA) Urine Ketones Urine Blood Urine Nitrate Urine Bilirubin Urine Urobilinogen Ur Leukocyte Cherelle ase Salicylates Urine Opiates Scre en Acetaminophen Ur Barbiturates Sc reen Ur Phencyclidine S crn Ur Amphetamines Sc reen U Benzodiazepines Scrn Urine Cocaine Scre en U Marijuana (THC) Screen Ethyl Alcohol 36 mg/dL H mg/dL (0-10) SARS-CoV-2 Ag (Rap id) Discharge Plan Discharge Patient Disposition: Xfer Psychiatric Hosp Clinical Impression: Suicidal ideations, Alcoholic intoxication Condition: Stable Sign Out Sign Out Data: Patient Sign Out occurred on 08/22/21 at 06:27. Patient's care was discussed, and care was transferred from to Roberto Garcia DO. Coding Level of Care Code ED Wide Area Network Engineer for Chg Fwd Exam Detailed Documented by User: Roberto Garcia DO 08/28/21 16:16 HPI - Alcohol General: Chief Complaint: Alcohol Stated Complaint: ETOH; SI Time Seen by Provider: 08/22/21 00:36 PFSH ED PFSH: Social History (Updated 08/21/20 @ 10:23 by RELL Small) Smoking and tobacco status: former smoker Alcohol intake: current Alcohol intake frequency: 3 or more drinks per day Lives independently: Yes Household members: none Marital status: Single service: No History of recent travel: No Course Vital Signs: Vital signs: Vital Signs Temperature 98.0 F 08/23/21 02:13 Pulse Rate 74 08/23/21 09:34 Respiratory Rate 16 08/23/21 02:13 Blood Pressure 131/74 08/23/21 09:34 Pulse Oximetry 98 08/23/21 09:34 MDM - Alcohol MDM Narrative: Medical decision making narrative: Follow-up blood alcohol level has decreased. Receiving facility is willing to take the patient on transfer. Patient remained stable while in the ER. Transferred without complication. See transfer form. Lab Data: Labs: Lab Results 08/22/21 08/22/21 08/22/21 00:45 00:45 01:00 WBC 6.9 10^3/uL 10^3/ uL (4.0-10.0) RBC 4.65 10^6/uL 10^6 /uL (4.1-5.3) Hgb 14.6 g/dL g/dL (11.7-16.6) Hct 44.6 % % (42.0-52.0) MCV 95.9 fl H fl (80-94) MCH 31.4 pg pg (28.0-34.0) MCHC 32.7 g/dL g/dL (30.0-36.0) RDW 13.3 % % (12.1-15.1) Plt Count 243 10^3/cmm 10^3 /cmm (130-400) MPV 9.6 fL fL (7.4-10.4) Neut % (Auto) 45.7 % % Lymph % (Auto) 41.2 % % [place] % (Auto) 9.1 % % Eos % (Auto) 2.2 % % Baso % (Auto) 1.4 % % Neut # (Auto) 3.15 10^3/uL 10^3 /uL (1.8-7.7) Lymph # (Auto) 2.9 10^3/uL 10^3/ uL (0.8-4.8) [place] # (Auto) 0.6 10^3/uL 10^3/ uL (0.2-0.9) Eos # (Auto) 0.2 10^3/uL 10^3/ uL (0.0-0.8) Baso # (Auto) 0.1 10^3/uL 10^3/ uL (0.0-0.1) Nucleated RBC % (a uto) 0 % % Nucleated RBCs # 0.0 /100WBC /100W BC Sodium 141 mmol/L mmol/L (136-145) Potassium 3.2 mmol/L L mmol /L (3.5-5.1) Chloride 110 mmol/L H mmol /L (98-107) Carbon Dioxide 21 mmol/L L mmol/ L (22-29) Anion Gap 13.2 (5-19) BUN 8 mg/dL mg/dL (8-23) Creatinine 0.6 mg/dL L mg/dL (0.7-1.2) GFR Calculation 136.5 mL/min H mL /min (90-130) Glucose 89 mg/dL mg/dL (65-115) Calculated Osmolal ity 290 mOsm/kg mOsm/ kg (285-295) Calcium 7.4 mg/dL L mg/dL (8.5-10.5) Total Bilirubin 0.2 mg/dL mg/dL (0.15-1.2) AST 20 U/L U/L (0-40) ALT 30 U/L U/L (0-41) Alkaline Phosphata se 71 IU/L IU/L (40-130) Creatine Kinase Total Protein 6.3 g/dL L g/dL (6.6-8.7) Albumin 3.5 g/dL g/dL (3.5-5.2) Globulin 2.8 g/dL g/dL (1.3-4.6) TSH 0.50 uIU/mL uIU/m L (0.27-4.20) Urine Color Urine Appearance Urine pH Ur Specific Gravit y Urine Protein Urine Glucose (UA) Urine Ketones Urine Blood Urine Nitrate Urine Bilirubin Urine Urobilinogen Ur Leukocyte Cherelle ase Salicylates < 0.3 mg/dL L mg/ dL (3-10) Urine Opiates Scre en Acetaminophen < 5.0 ug/mL L ug/ mL (10-30) Ur Barbiturates Sc reen Ur Phencyclidine S crn Ur Amphetamines Sc reen U Benzodiazepines Scrn Urine Cocaine Scre en U Marijuana (THC) Screen Ethyl Alcohol 253 mg/dL H mg/dL (0-10) SARS-CoV-2 Ag (Rap id) Negative (Negative) 08/22/21 08/22/21 08/22/21 01:20 01:20 04:15 WBC RBC Hgb Hct MCV MCH MCHC RDW Plt Count MPV Neut % (Auto) Lymph % (Auto) [place] % (Auto) Eos % (Auto) Baso % (Auto) Neut # (Auto) Lymph # (Auto) [place] # (Auto) Eos # (Auto) Baso # (Auto) Nucleated RBC % (a uto) Nucleated RBCs # Sodium Potassium Chloride Carbon Dioxide Anion Gap BUN Creatinine GFR Calculation Glucose Calculated Osmolal ity Calcium Total Bilirubin AST ALT Alkaline Phosphata se Creatine Kinase 68 U/L U/L (39-308) Total Protein Albumin Globulin TSH Urine Color Yellow (Yellow) Urine Appearance Clear (CLEAR) Urine pH 5 (5-7) Ur Specific Gravit y 1.010 (1.005-1.030) Urine Protein Neg (Negative) Urine Glucose (UA) Norm (Normal) Urine Ketones Negative (Negative) Urine Blood Neg (Negative) Urine Nitrate Negative (Negative) Urine Bilirubin Neg (Negative) Urine Urobilinogen Norm mg/dL mg/dL (Negative) Ur Leukocyte Cherelle ase Negative (Negative) Salicylates Urine Opiates Scre en Negative ng/mL ng /mL (Negative) Acetaminophen Ur Barbiturates Sc reen Negative ng/mL ng /mL (Negative) Ur Phencyclidine S crn Negative ng/mL ng /mL (Negative) Ur Amphetamines Sc reen Negative ng/mL ng /mL (Negative) U Benzodiazepines Scrn Negative ng/mL ng /mL (Negative) Urine Cocaine Scre en Negative ng/mL ng /mL (Negative) U Marijuana (THC) Screen Negative ng/mL ng /mL (Negative) Ethyl Alcohol 222 mg/dL H mg/dL (0-10) SARS-CoV-2 Ag (Rap id) 08/22/21 12:07 WBC RBC Hgb Hct MCV MCH MCHC RDW Plt Count MPV Neut % (Auto) Lymph % (Auto) [place] % (Auto) Eos % (Auto) Baso % (Auto) Neut # (Auto) Lymph # (Auto) [place] # (Auto) Eos # (Auto) Baso # (Auto) Nucleated RBC % (a uto) Nucleated RBCs # Sodium Potassium Chloride Carbon Dioxide Anion Gap BUN Creatinine GFR Calculation Glucose Calculated Osmolal ity Calcium Total Bilirubin AST ALT Alkaline Phosphata se Creatine Kinase Total Protein Albumin Globulin TSH Urine Color Urine Appearance Urine pH Ur Specific Gravit y Urine Protein Urine Glucose (UA) Urine Ketones Urine Blood Urine Nitrate Urine Bilirubin Urine Urobilinogen Ur Leukocyte Cherelle ase Salicylates Urine Opiates Scre en Acetaminophen Ur Barbiturates Sc reen Ur Phencyclidine S crn Ur Amphetamines Sc reen U Benzodiazepines Scrn Urine Cocaine Scre en U Marijuana (THC) Screen Ethyl Alcohol 36 mg/dL H mg/dL (0-10) SARS-CoV-2 Ag (Rap id) Discharge Plan Discharge Patient Disposition: Xfer Psychiatric Hosp Clinical Impression: Suicidal ideations, Alcoholic intoxication Condition: Stable Sign Out Sign Out Data: Patient Sign Out occurred on 08/22/21 at 06:27. Patient's care was discussed, and care was transferred from to Roberto Garcia DO. Coding Level of Care Code ED Wide Area Network Engineer for Chg Fwd Exam Detailed
[2021-08-22 01:38] LABS: Add Urine Microscopic? NO; Charge for UA Resulting for Rev
[2021-08-22 01:39] LABS: SARS Covid-2 Antigen Negative (Negative)
[2021-08-22 01:40] LABS: Blood Urine Neg (Negative); Glucose Urine UA Norm (Normal); Ketones Urine Negative (Negative); Nitrate Urine Negative (Negative); Protein Urine Neg (Negative); Urine Appearance Clear (CLEAR); Urine Color Yellow (Yellow); pH Urine 5 (5-7)
[2021-08-22 01:41] LABS: Bilirubin Urine Neg (Negative); Leukocyte Esterase Urine Negative (Negative); Urobilinogen Urine Norm (Negative)
[2021-08-22 01:42] LABS: Alanine Aminotransferase 30 U/L (0-41); Albumin Level 3.5 g/dL (3.5-5.2); Alcohol Level 253 mg/dL (0-10); Alkaline Phosphatase 71 IU/L (40-130); Anion Gap 13.2 (5-19); Aspartate Amino Transferase 20 U/L (0-40); Blood Urea Nitrogen 8 mg/dL (8-23); Calcium 7.4 mg/dL (8.5-10.5); Carbon Dioxide 21 mmol/L (22-29); Chloride 110 mmol/L (98-107); Globulin 2.8 g/dL (1.3-4.6); Glomerular Filtration Rate 136.5 mL/min (90-130); Glucose 89 mg/dL (65-115); Osmolality Calculated 290 mOsm/kg (285-295); Potassium 3.2 mmol/L (3.5-5.1); Sodium 141 mmol/L (136-145); Total Bilirubin 0.2 mg/dL (0.15-1.2); Total Protein 6.3 g/dL (6.6-8.7)
[2021-08-22 01:46] LABS: Acetaminophen < 5.0 ug/mL (10-30); Salicylate < 0.3 mg/dL (3-10)
[2021-08-22 01:50] LABS: Amphetamines Screen Urine Negative (Negative); Barbiturates Screen Urine Negative (Negative); Benzodiazepines Screen Urine Negative (Negative); Cocaine Screen Urine Negative (Negative); Opiate Screen Urine Negative (Negative); PCP Screen Urine Negative (Negative); THC Screen Urine Negative (Negative)
[2021-08-22] MEDS: potassium chloride ER 20 mEq Tablet 40 MEQ PO (02:32)
[2021-08-22 04:46] LABS: Alcohol Level 222 mg/dL (0-10); Creatine Phosphokinase 68 U/L (39-308)
[2021-08-22] MEDS: sodium chloride 0.9% 1,000 ML 999 ML IV (07:15)
[2021-08-22 09:00] VITALS: BP 129/76; PULSE 78; RESP 17; O2SAT 96
[2021-08-22 12:37] LABS: Alcohol Level 36 mg/dL (0-10)
[2021-08-22] MEDS: nicotine 21 mg Patch 1 PATCH TRANSDERMA (13:47)
--- NOTE | 2021-08-22 14:04 | PC.NURSE ---
updated ETOH, EKG faxed to [facility]. Spoke with Nurse, beds available, awaiting acceptance
--- NOTE | 2021-08-22 16:20 | PC.NURSE ---
follow up with [facility], wants documentation from physician of SI now that ETOH is cleared.
[2021-08-22 18:44] VITALS: BP 167/88; PULSE 72; RESP 17; O2SAT 97
[2021-08-22] MEDS: LORazepam 2 mg Tablet PO (18:58)
[2021-08-23 02:13] VITALS: BP 131/76; PULSE 60; RESP 16; TEMP 36.7; O2SAT 96
[2021-08-23] MEDS: LORazepam 2 mg Tablet PO (07:22)
[2021-08-23] MEDS: multivitamin therapeutic Tablet 1 TAB PO (08:13)
[2021-08-23] MEDS: thiamine 100 mg Tablet PO (08:13)
[2021-08-23 09:34] VITALS: BP 131/74; PULSE 74; O2SAT 98
== END 2021-08-23 09:35 ==
PROVIDERS: Family Medicine; Emergency Provider Emergency Medicine
DX: R45.851 Suicidal ideations (principal); F10.129 Alcohol abuse with intoxication, unspecified; Y90.1 Blood alcohol level of 20-39 mg/100 ml; Z87.891 Personal history of nicotine dependence; Z20.822 Contact with and (suspected) exposure to COVID-19
CPT/HCPCS: 36415; 71045; 80053; 80306; 80307; 81003; 82550; 84443; 85025; 87426; 93005; 96360; 96372; 99284; J3411; J7030

== ENCOUNTER 2021-12-12 19:00 | Emergency (ER) | payer BC, MEDICAID, SELFPAY ==
[2021-12-12 19:02] VITALS: BP 105/66; PULSE 89; RESP 18; O2SAT 95; BMI 25.7
--- NOTE | 2021-12-12 19:21 | CTR_ITS ---
PROCEDURE INFORMATION: Exam: CT Head Without Contrast Exam date and time: 12/12/2021 7:21 PM Age: 61 years old Clinical indication: Altered mental status/memory loss; Confusion or disorientation; Patient HX: Confusion, ETOH, si TECHNIQUE: Imaging protocol: Computed tomography of the head without contrast. Radiation optimization: All CT scans at this facility use at least one of these dose optimization techniques: automated exposure control; mA and/or kV adjustment per patient size (includes targeted exams where dose is matched to clinical indication); or iterative reconstruction. COMPARISON: No relevant prior studies available. RADIATION DOSE METRICS: Total DLP (mGy-cm): 1218.54 FINDINGS: Brain: There is volume loss and periventricular low density compatible with chronic small vessel disease changes. There is no acute hemorrhage, edema or mass effect. Cerebral ventricles: No ventriculomegaly. Paranasal sinuses: Visualized sinuses are unremarkable. No fluid levels. Mastoid air cells: Visualized mastoid air cells are well aerated. Bones/joints: Unremarkable. No acute fracture. Soft tissues: Unremarkable. CT/CT head wo con* [id number] IMPRESSION: No acute intracranial abnormality.
--- NOTE | 2021-12-12 19:40 | W.ED.GENADLT ---
HPI - General Adult General: Chief complaint: Psychiatric Symptoms Stated complaint: ETOH; SI Time Seen by Provider: 12/12/21 19:01 History of Present Illness: HPI: [61]yo patient w/ hx of depression and chronic alcohol dependence presenting to the ED for acute suicidal ideation and alcohol intoxication. Patient tells me that he was planning to drink to . On arrival, the patient is AAOx3 and cooperative with my evaluation. No focal complaints of chest pain, shortness of breath, palpitations, N/V, focal GI/ complaints. Currently denies HI. No complaints of hallucinations. Onset: unknown Duration: ongoing Location: home Severity: severe Associated symptoms: Deny chest pain, dyspnea, nausea, rash, palpitations or vomiting Review of Systems Const: Denies: fever(s) or chills Eyes: Denies: change in vision ENMT: Denies: mouth pain Card: Denies: chest pain or palpitations Resp: Denies: dyspnea or non-productive cough GI: Denies: abdominal pain, nausea, vomiting or diarrhea : Denies: dysuria Musc: Denies: extremity pain Skin/Breast: Denies: rash or new lesions Neuro: Reports: other (moving all extremities, slurring words); Denies: weakness in extremities Psych: Reports: other (suicidal ideation, disinhibition) Ke/Lymph: Denies: easy bruising PFSH ED PFSH: Medical History Alcohol intoxication Hepatitis B Suicidal ideation Social History Smoking and tobacco status: former smoker Alcohol intake: current Alcohol intake frequency: 3 or more drinks per day Substance/Drug Use: unknown Lives independently: Yes Household members: none Marital status: Single service: No History of recent travel: No Physical Exam Const: COMMON NORMALS: alert HENMT: COMMON NORMALS: atraumatic HEAD & SCALP: atraumatic MOUTH: moist mucous membranes not abnormal Eye: COMMON NORMALS: EOMs intact bilaterally and conjunctivae normal CONJUNCTIVA: Yes conjunctivae normal Neck/C-Spine: COMMON NORMALS: full ROM and supple Resp: COMMON NORMALS: normal respiratory effort and clear to auscultation bilaterally AUSCULTATION: clear to auscultation bilaterally Cardio: COMMON NORMALS: regular rate RATE: regular rate GI: COMMON NORMALS: Soft to palpation and non-tender PALPATION: Yes Soft to palpation Extremity: COMMON NORMALS: full ROM Neuro: SENSORIUM/ORIENTATION: Yes alert MOTOR EXAM: No Abnormal motor strength present and Other motor observations present (no focal motor deficits) Psych: COMMON NORMALS: speech normal SPEECH: Yes normal speech MOOD & AFFECT: Yes euthymic mood Course Vital Signs: Vital signs: Vital Signs Temperature 98.4 F 12/13/21 08:41 Pulse Rate 86 12/13/21 16:55 Respiratory Rate 18 12/13/21 16:45 Blood Pressure 212/129 12/13/21 16:55 Pulse Oximetry 97 12/13/21 16:55 MDM - General Adult Medical Decision Making [61]yo patient w/ hx of chronic alcohol use and depression presenting for suicidal ideation and alcohol intoxication. HDS, exam within normal limit. Patient is disinhibitied. Thoughts are linear and organized, and the patient has no AH/VH, or HI. Clinically the patient displays no overt toxidrome; they are well appearing, with low suspicion for toxic ingestion given history and exam. Symptoms unlikely 2/2 anemia, hypothyroidism, infection, or ICH. Workup: CBC, CMP, Lipase, salicylate/tylenol, serum ethanol, UDS, TSH/T4, CT head Lab findings: wnl [3:45pm the next day] On reassessment, labs and workup wnl. Patient is hemodynamically stable with no acute medical complaints. Case discussed with psychiatric provider Dr. Ball at [facility] psych inpatient who evaluated patient via telepsych and recommended discharge with close follow-up with [facility]. At 3:48pm, patient is clinically sober, AAOx3. On reassessment, patient denied any suicidal ideation, homicidal ideation, or active hallucination. I have given patient follow up with our pillowcase cutter to be seen by [facility] for close follow up for depression. Patient aware of a call from our pillowcase cutter to schedule for appointment(s) and verbalizes understanding of the importance of following up. Disposition: Discharge. Patient is encouraged to come back to the emergency room at any point time should he have any more suicidal ideation, thoughts of hurting self, visual or auditory hallucination, or any new concerning complaints Lab Data : 12/12/21 20:45 12/12/21 20:[address] 12/12/21 19:21 IMPRESSION: No acute intracranial abnormality. Laboratory Results WBC 7.7 10^3/uL (4.0-10.0) 12/12/21 20:45 RBC 4.79 10^6/uL (4.1-5.3) 12/12/21 20:45 Hgb 14.9 g/dL (11.7-16.6) 12/12/21 20:45 Hct 44.2 % (42.0-52.0) 12/12/21 20:45 MCV 92.3 fl (80-94) 12/12/21 20:45 MCH 31.1 pg (28.0-34.0) 12/12/21 20:45 MCHC 33.7 g/dL (30.0-36.0) 12/12/21 20:45 RDW 13.4 % (12.1-15.1) 12/12/21 20:45 Plt Count 170 10^3/cmm (130-400) 12/12/21 20:45 MPV 9.3 fL (7.4-10.4) 12/12/21 20:45 Neut % (Auto) 50.4 % 12/12/21 20:45 Lymph % (Auto) 34.5 % 12/12/21 20:45 Weld % (Auto) 9.9 % 12/12/21 20:45 Eos % (Auto) 1.7 % 12/12/21 20:45 Baso % (Auto) 0.8 % 12/12/21 20:45 Neut # (Auto) 3.86 10^3/uL (1.8-7.7) 12/12/21 20:45 Lymph # (Auto) 2.6 10^3/uL (0.8-4.8) 12/12/21 20:45 [place]eld # (Auto) 0.8 10^3/uL (0.2-0.9) 12/12/21 20:45 Eos # (Auto) 0.1 10^3/uL (0.0-0.8) 12/12/21 20:45 Baso # (Auto) 0.1 10^3/uL (0.0-0.1) 12/12/21 20:45 Nucleated RBC % (auto) 0 % 12/12/21 20:45 Nucleated RBCs # 0.0 /100WBC 12/12/21 20:45 Sodium 143 mmol/L (136-145) 12/12/21 20:45 Potassium 4.6 mmol/L (3.5-5.1) 12/12/21 20:45 Chloride 107 mmol/L (98-107) 12/12/21 20:45 Carbon Dioxide 23 mmol/L (22-29) 12/12/21 20:45 Anion Gap 17.6 (5-19) 12/12/21 20:45 BUN 13 mg/dL (8-23) 12/12/21 20:45 Creatinine 0.7 mg/dL (0.7-1.2) 12/12/21 20:45 GFR Calculation 114.3 mL/min (90-130) 12/12/21 20:45 Glucose 119 mg/dL (65-115) H 12/12/21 20:45 Calculated Osmolality 297 mOsm/kg (285-295) H 12/12/21 20:45 Calcium 8.1 mg/dL (8.5-10.5) L 12/12/21 20:45 TSH 0.33 uIU/mL (0.27-4.20) 12/12/21 20:45 Free T4 1.13 ng/dL (0.82-1.77) 12/12/21 20:45 Salicylates < 0.3 mg/dL (3-10) L 12/12/21 20:45 Urine Opiates Screen Negative ng/mL (Negative) 12/12/21 19:40 Acetaminophen < 5.0 ug/mL (10-30) L 12/12/21 20:45 Ur Barbiturates Screen Negative ng/mL (Negative) 12/12/21 19:40 Ur Phencyclidine Scrn Negative ng/mL (Negative) 12/12/21 19:40 Ur Amphetamines Screen Negative ng/mL (Negative) 12/12/21 19:40 U Benzodiazepines Scrn Negative ng/mL (Negative) 12/12/21 19:40 Urine Cocaine Screen Negative ng/mL (Negative) 12/12/21 19:40 U Marijuana (THC) Screen Negative ng/mL (Negative) 12/12/21 19:40 Ethyl Alcohol 87 mg/dL (0-10) H 12/13/21 06:23 Imaging Data Other Imaging: Radiologist's impression: [employer] [address] [place] [address] CT Scan Report Signed Patient: Marcos Lazar Unit #: [id number] : 1960 Age/Sex: 61 / M ADM Date: 12/12/21 Loc: ER Room/Bed: Attending Dr: Ordering Provider/Ordering MD: Martinez Lynn MD Date of Service: 12/12/21 Procedure(s): CT head wo con* [id number] Accession Number(s): [id number] Report Number: [id number] PROCEDURE INFORMATION: Exam: CT Head Without Contrast Exam date and time: 12/12/2021 7:21 PM Age: 61 years old Clinical indication: Altered mental status/memory loss; Confusion or disorientation; Patient HX: Confusion, ETOH, si TECHNIQUE: Imaging protocol: Computed tomography of the head without contrast. Radiation optimization: All CT scans at this facility use at least one of these dose optimization techniques: automated exposure control; mA and/or kV adjustment per patient size (includes targeted exams where dose is matched to clinical indication); or iterative reconstruction. COMPARISON: No relevant prior studies available. RADIATION DOSE METRICS: Total DLP (mGy-cm): 1218.54 FINDINGS: Brain: There is volume loss and periventricular low density compatible with chronic small vessel disease changes. There is no acute hemorrhage, edema or mass effect. Cerebral ventricles: No ventriculomegaly. Paranasal sinuses: Visualized sinuses are unremarkable. No fluid levels. Mastoid air cells: Visualized mastoid air cells are well aerated. Bones/joints: Unremarkable. No acute fracture. Soft tissues: Unremarkable. CT/CT head wo con* [id number] IMPRESSION: No acute intracranial abnormality. ? Dictated By: Rona Najera Signed By: Rona Najera Signed Date/Time: 12/12/212023 DD/ 20 Discharge Plan Discharge Patient Disposition: Home Clinical Impression: Alcohol intoxication, Suicidal ideation, Hypertension Condition: Stable Prescriptions: New amlodipine 10 mg tablet 10 mg PO DAILY 14 Days Qty: 14 0RF No Action ibuprofen 800 mg Tablet 800 mg PO Q6H PRN (Reason: Pain (Scale Score 4-6)) 10 Days Qty: 40 0RF hydroxyzine pamoate 50 mg capsule 50 mg PO TID PRN (Reason: Anxiety) 0RF citalopram 20 mg tablet 20 mg PO DAILY 0RF lisinopril-hydrochlorothiazide 20-25 mg tablet 1 tab PO DAILY 0RF Discharge Orders: Discharge ED (Routine); Ordered 12/13/21 Ordered By: Martinez Lynn Discharge Diet: Advance as tolerated Discharge Activity: Increase activity as tolerated Patient Instructions: Depression (ED) Activity Restrictions/Additional Instructions: Please come back to the emergency room if you need help, have any hallucinations, or you have any depression or have thoughts about hurting yourself or other people. Our pillowcase cutter will have you follow-up with the [facility] in the next few days. You would be expected to have a phone call with our pillowcase cutter who will put you on the schedule. You need to follow-up with your primary care provider for further adjustment of your blood pressure. Your blood pressure puts you at risk for developing strokes and heart attack. Therefore it is very important for you to follow-up with this number to see if the numbers improve gradually. Because blood pressure adjustment is a gradual process, were not able to change it in 1 visit. Therefore please log your blood pressure and follow-up with your primary care provider in the next 72 hours for further adjustment of your blood pressures. Coding Level of Care Code ED Meteorologist In Charge for Ramonita Fwbetsey Exam Comprehensive
[2021-12-12 20:21] LABS: Amphetamines Screen Urine Negative (Negative); Barbiturates Screen Urine Negative (Negative); Benzodiazepines Screen Urine Negative (Negative); Cocaine Screen Urine Negative (Negative); Opiate Screen Urine Negative (Negative); PCP Screen Urine Negative (Negative); THC Screen Urine Negative (Negative)
[2021-12-12 20:52] LABS: Basophils # 0.1 10^3/uL (0.0-0.1); Basophils % 0.8 %; Eosinophils # 0.1 10^3/uL (0.0-0.8); Eosinophils % 1.7 %; Hematocrit 44.2 % (42.0-52.0); Hemoglobin 14.9 g/dL (11.7-16.6); Lymphocytes # 2.6 10^3/uL (0.8-4.8); Lymphocytes % 34.5 %; Mean Corpuscular HGB Conc 33.7 g/dL (30.0-36.0); Mean Corpuscular Hemoglobin 31.1 pg (28.0-34.0); Mean Corpuscular Volume 92.3 fl (80-94); Mean Platelet Volume 9.3 fL (7.4-10.4); Monocytes # 0.8 10^3/uL (0.2-0.9); Monocytes % 9.9 %; Neutrophils # 3.86 10^3/uL (1.8-7.7); Neutrophils % 50.4 %; Nucleated Red Blood Cells % 0 %; Platelet Count 170 10^3/cmm (130-400); Red Blood Count 4.79 10^6/uL (4.1-5.3); Red Cell Distribution Width 13.4 % (12.1-15.1); White Blood Count 7.7 10^3/uL (4.0-10.0)
--- NOTE | 2021-12-12 21:07 | PC.NURSE ---
Pt asleep in bed at this time. sitter at door. pt in psych scrubs.
[2021-12-12 21:25] LABS: Blood Urea Nitrogen 13 mg/dL (8-23); Calcium 8.1 mg/dL (8.5-10.5); Carbon Dioxide 23 mmol/L (22-29); Chloride 107 mmol/L (98-107); Glomerular Filtration Rate 114.3 mL/min (90-130); Glucose 119 mg/dL (65-115); Osmolality Calculated 297 mOsm/kg (285-295); Sodium 143 mmol/L (136-145); Thyroid Stimulating Hormone 0.33 uIU/mL (0.27-4.20)
[2021-12-12 21:26] LABS: Acetaminophen < 5.0 ug/mL (10-30); Anion Gap 17.6 (5-19); Potassium 4.6 mmol/L (3.5-5.1); Salicylate < 0.3 mg/dL (3-10)
[2021-12-12 21:27] LABS: Alcohol Level 312 mg/dL (0-10)
[2021-12-13 01:25] LABS: Free T4 Free Thyroxine 1.13 ng/dL (0.82-1.77)
[2021-12-13 07:11] LABS: Alcohol Level 87 mg/dL (0-10)
[2021-12-13 08:41] VITALS: BP 146/94; PULSE 94; RESP 18; TEMP 36.9; O2SAT 94
[2021-12-13] MEDS: acetaminophen 500 mg Tablet PO (12:21)
[2021-12-13] MEDS: LORazepam 1 mg Tablet PO (15:17)
[2021-12-13 16:45] VITALS: BP 170/94; PULSE 76; RESP 18; O2SAT 97
[2021-12-13 16:55] VITALS: BP 212/129; PULSE 86; O2SAT 97
[2021-12-13] MEDS: amlodipine 10 mg Tablet PO (16:57)
[2021-12-13 17:17] VITALS: BP 183/96
--- NOTE | 2021-12-13 17:18 | PC.NURSE ---
Updated Dr. Lynn with recent blood pressure taken. Orders received to educate patient on following up with his primary care provider soon, to have his high blood pressure addressed.
[2021-12-13 17:20] VITALS: BP 183/96; PULSE 86; RESP 18; TEMP 36.9; O2SAT 97
--- NOTE | 2021-12-14 13:34 | DCPLANNER ---
operations and maintenance manager had message to speak with patient at [facility]. operations and maintenance manager called phone number [phone], unable to speak with patient, due to this being a non working number.
== END 2021-12-13 17:21 | disposition home or self-care (01) ==
PROVIDERS: Emergency Medicine; Emergency Provider Emergency Medicine
DX: R45.851 Suicidal ideations (principal); F10.129 Alcohol abuse with intoxication, unspecified; I10 Essential (primary) hypertension; Y90.4 Blood alcohol level of 80-99 mg/100 ml; Z86.19 Personal history of other infectious and parasitic diseases; Z87.891 Personal history of nicotine dependence
CPT/HCPCS: 36415; 70450; 80048; 80306; 80307; 84439; 84443; 85025; 99284

== ENCOUNTER 2021-12-31 09:09 | Emergency (ER) | payer BC, MEDICAID, SELFPAY ==
[2021-12-31 09:15] VITALS: BP 139/86; PULSE 81; RESP 15; O2SAT 94; BMI 27.1
[2021-12-31 09:28] VITALS: BP 139/86; PULSE 81; RESP 15; O2SAT 94
--- NOTE | 2021-12-31 09:33 | ECG_ITS ---
[facility] Test Date: 2021-12-31 Pat Name: Marcos Lazar Department: Room: Gender: Male Clerical Adjudicator: : 1960 Requested By: Roberto Rogers Order Number: [id number] Kavon MD: Richmond Garcia M.D. Measurements Intervals [place] Rate: 73 P: 69 PA: 192 QRS: 23 QRSD: 92 T: 64 QT: 412 QTc: 457 Interpretive Statements SINUS RHYTHM LEFT ATRIAL ENLARGEMENT [-0.15mV P-WAVE IN V1/V2] Compared to ECG 08/22/2021 01:08:50 Atrial abnormality now present Electronically Signed On 12-31-2021 20:51:09 COMMUNICATIONS MAINTAINER by Richmond Garcia M.D. [id number]
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
[2021-12-31 10:38] LABS: Basophils # 0.1 10^3/uL (0.0-0.1); Basophils % 1.3 %; Eosinophils # 0.1 10^3/uL (0.0-0.8); Eosinophils % 1.5 %; Hematocrit 45.8 % (42.0-52.0); Hemoglobin 15.3 g/dL (11.7-16.6); Lymphocytes # 1.8 10^3/uL (0.8-4.8); Lymphocytes % 29.1 %; Mean Corpuscular HGB Conc 33.4 g/dL (30.0-36.0); Mean Corpuscular Hemoglobin 31.2 pg (28.0-34.0); Mean Corpuscular Volume 93.3 fl (80-94); Mean Platelet Volume 8.7 fL (7.4-10.4); Monocytes # 0.8 10^3/uL (0.2-0.9); Monocytes % 13.5 %; Neutrophils # 3.24 10^3/uL (1.8-7.7); Neutrophils % 53.9 %; Nucleated Red Blood Cells % 0 %; Platelet Count 224 10^3/cmm (130-400); Red Blood Count 4.91 10^6/uL (4.1-5.3); Red Cell Distribution Width 13.5 % (12.1-15.1)
[2021-12-31 10:59] VITALS: RESP 15
[2021-12-31 11:04] LABS: Partial Thromboplastin Time 26.8 SECONDS (23.9-36.7)
[2021-12-31 11:06] LABS: Alanine Aminotransferase 40 U/L (0-41); Albumin Level 4.2 g/dL (3.5-5.2); Alkaline Phosphatase 79 IU/L (40-130); Anion Gap 13.6 (5-19); Aspartate Amino Transferase 38 U/L (0-40); Blood Urea Nitrogen 13 mg/dL (8-23); Calcium 8.6 mg/dL (8.5-10.5); Carbon Dioxide 26 mmol/L (22-29); Chloride 104 mmol/L (98-107); Globulin 2.7 g/dL (1.3-4.6); Glomerular Filtration Rate 114.3 mL/min (90-130); Glucose 96 mg/dL (65-115); Osmolality Calculated 290 mOsm/kg (285-295); Potassium 3.6 mmol/L (3.5-5.1); Salicylate 0.4 mg/dL (3-10); Sodium 140 mmol/L (136-145); Total Bilirubin 0.4 mg/dL (0.15-1.2); Total Protein 6.9 g/dL (6.6-8.7)
[2021-12-31 11:08] LABS: Acetaminophen < 5.0 ug/mL (10-30)
[2021-12-31 11:10] LABS: Alcohol Level 225 mg/dL (0-10)
[2021-12-31 11:13] LABS: Amphetamines Screen Urine Negative (Negative); Barbiturates Screen Urine Negative (Negative); Benzodiazepines Screen Urine Negative (Negative); Cocaine Screen Urine Negative (Negative); Opiate Screen Urine Negative (Negative); PCP Screen Urine Negative (Negative); THC Screen Urine Negative (Negative)
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
[2021-12-31 13:16] VITALS: BP 145/92; PULSE 87; RESP 17; O2SAT 94
== END 2021-12-31 13:19 | disposition home or self-care (01) ==
PROVIDERS: Emergency Provider Family Medicine
DX: F32.A Depression, unspecified (principal); F10.129 Alcohol abuse with intoxication, unspecified; Y90.7 Blood alcohol level of 200-239 mg/100 ml; Z86.19 Personal history of other infectious and parasitic diseases; Z87.891 Personal history of nicotine dependence
CPT/HCPCS: 80053; 80306; 80307; 85025; 85610; 85730; 93005; 99283

== ENCOUNTER 2022-02-07 12:41 | Inpatient (IN) | payer BC, SELFPAY ==
--- NOTE | 2022-02-07 12:45 | CTR_ITS ---
PROCEDURE INFORMATION: Exam: CT Head Without Contrast Exam date and time: 02/07/2022 1:45 PM Age: 61 years old Clinical indication: Altered mental status/memory loss; Confusion or disorientation; Patient HX: AMS - confusion - ETOH - si TECHNIQUE: Imaging protocol: Computed tomography of the head without contrast. Radiation optimization: All CT scans at this facility use at least one of these dose optimization techniques: automated exposure control; mA and/or kV adjustment per patient size (includes targeted exams where dose is matched to clinical indication); or iterative reconstruction. COMPARISON: CT head wo con* [id number] 12/12/2021 7:58 PM RADIATION DOSE METRICS: Total DLP (mGy-cm): 655.69 FINDINGS: Limitations: There is motion artifact partially degrading examination inferiorly. Brain: There is no acute intracranial hemorrhage. There is mild lucency in the cerebral white matter, likely microvascular disease although non-specific. No evidence of mass. There is no mass effect or midline shift. Carmona white differentiation is intact. There are no extra-axial fluid collections. Cerebral ventricles: The ventricles and sulci are enlarged, consistent with volume loss / atrophy. No hydrocephalus. Paranasal sinuses: There is stable lobular density in the right maxillary sinus medially with central densities with may be calcification. This could be a polyp or small mass. There is a rounded small density in left maxillary sinus which is consistent with retention cyst or polyp. Mastoid air cells: No significant mastoid effusion. Vasculature: There is vascular calcification. Bones/joints: No acute fracture. Soft tissues: There is stable skin thickening versus sessile mass along the left lateral frontal vertex, for instance seen on series 2 axial image 57. Correlate with direct evaluation to exclude skin mass/abnormality. CT/CT head wo con* [id number] IMPRESSION: 1. No evidence of acute intracranial abnormality. No evidence of acute infarction, hemorrhage, or mass. 2. Atrophy and microvascular disease. 3. Left frontal skin thickening and directly visualized to evaluate for mass/lesion. 4. Right maxillary sinus polyp or small mass. Left maxillary sinus polyp or retention cyst.
[2022-02-07 12:50] VITALS: BP 128/82; PULSE 88; RESP 21; TEMP 36.6; O2SAT 98; BMI 28.2
[2022-02-07 13:01] LABS: Basophils # 0.1 10^3/uL (0.0-0.1); Basophils % 0.9 %; Eosinophils # 0.1 10^3/uL (0.0-0.8); Eosinophils % 1.2 %; Hematocrit 37.4 % (42.0-52.0); Hemoglobin 12.3 g/dL (11.7-16.6); Lymphocytes % 35.3 %; Mean Corpuscular HGB Conc 32.9 g/dL (30.0-36.0); Mean Corpuscular Hemoglobin 30.6 pg (28.0-34.0); Mean Platelet Volume 8.8 fL (7.4-10.4); Monocytes # 0.7 10^3/uL (0.2-0.9); Neutrophils # 4.57 10^3/uL (1.8-7.7); Neutrophils % 53.9 %; Nucleated Red Blood Cells % 0 %; Platelet Count 294 10^3/cmm (130-400); Red Blood Count 4.02 10^6/uL (4.1-5.3); Red Cell Distribution Width 14.4 % (12.1-15.1); White Blood Count 8.5 10^3/uL (4.0-10.0)
[2022-02-07 13:04] VITALS: BP 114/69; PULSE 82; RESP 17; TEMP 36.8; O2SAT 97
--- NOTE | 2022-02-07 13:06 | W.ED.PSYCHS ---
HPI - Psych General: Chief Complaint: Psychiatric Symptoms Stated Complaint: ETOH; SI Time Seen by Provider: 02/07/22 12:42 PFSH ED PFSH: Medical History (Updated 12/31/21 @ 12:57 by Roberto Garcia DO) Alcohol intoxication Hepatitis B Suicidal ideation Social History Smoking and tobacco status: former smoker Alcohol intake: current Alcohol intake frequency: 3 or more drinks per day Lives independently: Yes Household members: none Marital status: Single service: No History of recent travel: No Course Vital Signs: Vital signs: Vital Signs Temperature 97.9 F 02/07/22 12:50 Pulse Rate 88 02/07/22 12:50 Respiratory Rate 21 H 02/07/22 12:50 Blood Pressure 128/82 02/07/22 12:50 Pulse Oximetry 98 02/07/22 12:50 MDM - Psych Lab Data : 02/07/22 12:45 02/07/22 12:45 Laboratory Results WBC 8.5 10^3/uL (4.0-10.0) 02/07/22 12:45 RBC 4.02 10^6/uL (4.1-5.3) L 02/07/22 12:45 Hgb 12.3 g/dL (11.7-16.6) 02/07/22 12:45 Hct 37.4 % (42.0-52.0) L 02/07/22 12:45 MCV 93.0 fl (80-94) 02/07/22 12:45 MCH 30.6 pg (28.0-34.0) 02/07/22 12:45 MCHC 32.9 g/dL (30.0-36.0) 02/07/22 12:45 RDW 14.4 % (12.1-15.1) 02/07/22 12:45 Plt Count 294 10^3/cmm (130-400) 02/07/22 12:45 MPV 8.8 fL (7.4-10.4) 02/07/22 12:45 Neut % (Auto) 53.9 % 02/07/22 12:45 Lymph % (Auto) 35.3 % 02/07/22 12:45 [place] % (Auto) 8.0 % 02/07/22 12:45 Eos % (Auto) 1.2 % 02/07/22 12:45 Baso % (Auto) 0.9 % 02/07/22 12:45 Neut # (Auto) 4.57 10^3/uL (1.8-7.7) 02/07/22 12:45 Lymph # (Auto) 3.0 10^3/uL (0.8-4.8) 02/07/22 12:45 [place] # (Auto) 0.7 10^3/uL (0.2-0.9) 02/07/22 12:45 Eos # (Auto) 0.1 10^3/uL (0.0-0.8) 02/07/22 12:45 Baso # (Auto) 0.1 10^3/uL (0.0-0.1) 02/07/22 12:45 Nucleated RBC % (auto) 0 % 02/07/22 12:45 Nucleated RBCs # 0.0 /100WBC 02/07/22 12:45 Discharge Plan Discharge Condition: Stable Prescriptions: No Action hydroxyzine pamoate 50 mg capsule 50 mg PO TID PRN (Reason: Anxiety) 0RF citalopram 20 mg tablet 20 mg PO DAILY 0RF amlodipine 10 mg tablet 10 mg PO DAILY 0RF hydroxyzine HCl 25 mg tablet 25 mg PO Q6H PRN (Reason: anxiety) Qty: 10 0RF Coding Level of Care Code ED Rectifying Operator for Ramonita Lantigua
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
[2022-02-07 13:50] VITALS: BP 114/69; PULSE 82; RESP 17; TEMP 36.8; O2SAT 97
[2022-02-07 14:37] LABS: Alanine Aminotransferase 75 U/L (0-41); Albumin Level 3.4 g/dL (3.5-5.2); Alkaline Phosphatase 75 IU/L (40-130); Aspartate Amino Transferase 68 U/L (0-40); Blood Urea Nitrogen 10 mg/dL (8-23); Calcium 7.9 mg/dL (8.5-10.5); Carbon Dioxide 20 mmol/L (22-29); Chloride 104 mmol/L (98-107); Globulin 3.3 g/dL (1.3-4.6); Glomerular Filtration Rate 114.3 mL/min (90-130); Glucose 98 mg/dL (65-115); Lipase 87 U/L (13-60); Osmolality Calculated 281 mOsm/kg (285-295); Sodium 136 mmol/L (136-145); Total Bilirubin 0.2 mg/dL (0.15-1.2); Total Protein 6.7 g/dL (6.6-8.7)
[2022-02-07 14:49] LABS: Acetaminophen < 5.0 ug/mL (10-30); Salicylate < 0.3 mg/dL (3-10)
[2022-02-07 14:50] LABS: Anion Gap 16.4 (5-19); Potassium 4.4 mmol/L (3.5-5.1)
[2022-02-07 14:51] LABS: Alcohol Level 420 mg/dL (0-10)
--- NOTE | 2022-02-07 16:02 | PC.NURSE ---
Patient verbally escalated and was de-escalated by Dr. Lynn. Patient drinking coffee at this time,okay per . Patient tearful but cooperative at this time. Patient in bed, sitter at bedside.
[2022-02-07 16:44] LABS: Amphetamines Screen Urine Negative (Negative); Barbiturates Screen Urine Negative (Negative); Benzodiazepines Screen Urine Negative (Negative); Cocaine Screen Urine Negative (Negative); Opiate Screen Urine Negative (Negative); PCP Screen Urine Negative (Negative); THC Screen Urine Negative (Negative)
--- NOTE | 2022-02-07 18:08 | PC.NURSE ---
Patient states he is not homicidal or suicidal and wants to go home. Requested to get a ride back to [place] without speaking with family. Patient in bed, sitter at bedside.
--- NOTE | 2022-02-07 18:11 | PC.NURSE ---
notified DR. Lynn that patient would like to speak with him, paged and speaking with Dr. Lynn.
--- NOTE | 2022-02-07 19:06 | PC.NURSE ---
Patient speaking with Dr. Ball at this time. Patient report given to Nelida ALVA.
[2022-02-07] MEDS: diphenhydrAMINE 50 mg/mL SDV 1mL IM (20:03)
[2022-02-07] MEDS: LORazepam 2 mg/mL INJ 1 mL IM (20:03)
[2022-02-07] MEDS: haloperidol inj 5 mg/mL INJ 1 mL IM (20:03)
--- NOTE | 2022-02-07 20:04 | PC.NURSE ---
1934 pt demanded to leave this rn informed pt due to his etoh and making suicidal ideation statements per provider pt was placed on a hold and could not leave, pt then began yelling and threatening this rn pt stated he was fixin to hurt someone right now, pt called this rn a whore, pt called this rn a slut, pt got up out of the bed yelling quit staring at my ass this rn informed pt no one is staring at him pt then continued to make threatening statements towards staff, this rn informed charge nurse and provider, security notified, pt continued to have aggressive behavior towards senior medical transcriptionist, threatening to hurt someone right now
[2022-02-07 20:12] VITALS: BP 123/81; PULSE 82; RESP 20; TEMP 36.8; O2SAT 94
[2022-02-07 21:01] VITALS: BP 116/72; PULSE 72; RESP 18; TEMP 36.8; O2SAT 95
[2022-02-07 21:14] LABS: Alcohol Level 243 mg/dL (0-10)
--- NOTE | 2022-02-08 02:38 | PC.ADMIT ---
[address] [place] [address] 44 Admission Note: The patient,Marcos Lazar,61 y/o, was given written information regarding hospital policies, unit procedures and contact persons. Patient's smoking status: former smoker. Vital Signs - 8 hr 02/07/22 20:12 02/07/22 21:01 Temperature 98.3 F 98.2 F Pulse Rate 82 72 Respiratory Rate 20 H 18 Blood Pressure 123/81 116/72 Pulse Oximetry 94 95 Patient states he came in tonight because he was drinking moonshine and told neighbor he would probably be by morning and that he planned to drink himself to . He states he will be evicted from his apartment due to issues with neighbors and will be homeless within two weeks. He denies having any help at home or anyone to rely on. I have no one. Patient slurring words and unsteady on feet. Unable to assess all substance abuse as patient fell asleep during interview.
[2022-02-08 06:00] VITALS: BP 140/80; PULSE 97; RESP 18; TEMP 37.1; O2SAT 95
[2022-02-08] MEDS: LORazepam 2 mg Tablet PO (06:34)
--- NOTE | 2022-02-08 06:39 | PC.NURSE ---
Patient up and disoriented, unsteady with tremors, patient assisted to dining room to sit and drink coffee, CIWA scored and medications given per [facility] protocol.
--- NOTE | 2022-02-08 09:06 | PC.NURSE ---
scheduled 0900 meds held (thiamine, mtv, folic acid) d/t level of sedation & pt unable to safely swallow medications
--- NOTE | 2022-02-08 10:42 | PC.OT ---
HOLD OT EVALUATION PER NURSING PATIENT IS SEDATED.
--- NOTE | 2022-02-08 11:46 | W.PM.NPUH&PS ---
Providers/Chief Complaint Admitting Physician: Jose Ball MD Chief Complaint: ETOH; SI HPI NPU History of Present Illness Marcos Lazar is a 61 year old male who presented to the emergency department with the following report: Chief complaint: Psychiatric Symptoms Stated complaint: ETOH; SI Time Seen by Provider: 02/07/22 12:42 History of Present Illness:?? HPI: [61]yo patient w/ hx of chronic alochol use BIBA for acute intoxication and suicidal ideation.? Per EMS, patient was noted to be confused at a retirement and intoxicated.? Patient verbalized threats to hurt himself.? Bystander called EMS and patient was brought to the emergency room.? On arrival, the patient is AAOx3 and cooperative with my evaluation. No focal complaints of chest pain, shortness of breath, palpitations, N/V, focal GI/ complaints. Hx limited by cognitive status currently.? Patient occasionally answering questions but is incoherent and slurring words Onset: unknown Duration: ongoing Location: retirement Severity: moderate He was admitted to the neuropsychiatric unit for definitive treatment of those issues. He is known to this medical underwriter through past inpatient services most recently in June of last year. He denies any significant changes since then however he does report that secondary to some episode surrounding smoking cigarettes he is being evicted from his current property in about 2 weeks. He was very upset because the behavior is fairly common but he feels he is being singled out which is why he is not going to contest that but now he has 2 weeks to find a new place to live or he will be homeless which makes him fairly anxious. He reports that he was trying to drink himself to and presented with a blood alcohol of 420. Ultimately there was a explosion in the emergency department because he did not like the fact that they were going to discharge him immediately which led to him getting 5 mg of Haldol and 2 mg of Ativan. He was admitted and placed on the CIWA protocol for his withdrawal. We discussed the risk benefits and alternatives of increasing his medication for his depression and he understood and agreed to proceed as is documented in this note though it was not clear whether he wanted to increase the Celexa or not. He reports he has been drinking uncontrollably and understands that until he stops that he will not get better. He also reports that his depression has been a problem and that he was trying to kill himself with drinking. An excerpt from his June note is included below for context given no substantive changes since then. Per his 07/10/2021 [facility] inpatient psychiatric evaluation: History of Present Illness Marcos Lazar is a 61 year old male who presented to an outside hospital with affidavits reporting that he was labile, tearful, threatening and apologizing almost all at once.? He reported he had guns at home and needed help with his mood and addiction or he was going to kill himself with one of his guns.? He had multiple affidavits and everything notarized but once that short of completing a 96-hour hold and he was transferred to [facility] and admitted to the neuropsychiatric unit for definitive treatment of those issues.? He presents today reporting that he had 1 previous psychiatric admission here about 7 to 8 years ago.? Since of that admission back in 2012 was noted.? He denies outpatient services he reports he has had a history of being on medication but nothing recently.? He reports he been on medication for depression and anxiety.? He denies any previous suicide attempts.? He reports that he smokes about a pack and a half of cigarettes a day, has had alcohol off and on, marijuana denied he denied other illicit drugs except methamphetamine.? His blood alcohol was 132 at the outside hospital and his UDS was negative but he reports he has struggled with methamphetamine with previous daily difficulties but now is been headedness.? He is never to rehab and reports he had 2 DUIs the last 1 was maybe 5+ years ago.? He reports his been 3 days without drinks that he got a tallboy that he did not follow with a bunch of whiskey and he wonders if he got alcohol poisoning and was just feeling strange at the time that he was admitted.? He denies current lethality and saying that he feels better now wants to be discharged. Psychiatric history: As above. Substance abuse history: As above. Family history: He endorsed mental health issues on his mom's side denied mental health issues on his father side, addiction issues on either side of the family but does report he had uncles on his mom side of committed suicide. Developmental history: There were no problems with the , or delivery, learned to walk and talk and met developmental milestones on time, and denies need for speech therapy, learning support, emotional support or special education classes. Psychosocial history: He reports his parents were getting he was born and they have 3 sons of which he is the middle son.? He reports his childhood was really good and he denies emotional, physical or sexual abuse.? He reports that he made it to the 12th grade and ultimately got his GED.? He endorses being heterosexual with his long relationship being 6 years.? He is been one time once, has no children, is never in the and reports that he goes to the [employer].? He reports that he worked for 18 years for [employer] and lives in an apartment alone. Legal history: He reports he been in alf before but the longest x3 days.? Medical history: He reports he is concerned that he has cirrhosis. Meds NPU Home Medications Medication Instructions Recorded Confirmed Last Taken Type citalopram 20 mg tablet 20 mg PO DAILY 08/22/21 02/07/22 08/20/21 History hydroxyzine pamoate 50 mg capsule 50 mg PO TID PRN 08/22/21 02/07/22 Unknown History amlodipine 10 mg tablet 10 mg PO DAILY 12/31/21 02/07/22 Unknown History hydroxyzine HCl 25 mg tablet 25 mg PO Q6H PRN #10 tab 12/31/21 02/07/22 Unknown Rx lisinopril 20 1 tab PO DAILY 02/07/22 02/07/22 Unknown History mg-hydrochlorothiazide 25 mg tablet Allergies Allergy/AdvReac Type Severity Reaction Status Date / Time No Known Allergies Allergy Verified 12/12/21 19:15 PFS NPU PFSH: Medical History Alcohol intoxication Hepatitis B Suicidal ideation Social History Smoking and tobacco status: former smoker Alcohol intake: current Alcohol intake frequency: 3 or more drinks per day Lives independently: Yes Household members: none Marital status: Single service: No History of recent travel: No Mental Status Exam MSE Comments: This is a overweight older white male with a bald head and hospital scrubs looking younger than stated age with adequate grooming and limited eye contact.? No abnormal movements except for mild ataxia of gait and mild psychomotor retardation cooperative with exam in mild distress.? Speech was decreased rate and volume.? Mood I think I am fine, affect slightly subdued.? Thought process organized.? Thought content: Patient denied suicidal or homicidal ideation, there are no delusions reported or noted, he denies any auditory or visual hallucinations.? Attention concentration were intact and memory appeared mostly reliable but none were formally tested.? He is alert and oriented x3.? Insight and judgment are limited and impulse control is impaired. Vitals/I&O/Wt Last Vital Signs Temp 98.7 F 02/08/22 06:00 Pulse 97 02/08/22 06:00 Resp 18 02/08/22 06:00 BP 140/80 02/08/22 06:00 Pulse Ox 95 02/08/22 06:00 Weight last 48 hrs Weight 99.79 kg Data NPU : 02/07/22 12:45 02/07/22 13:55 A&P Assessment and plan (1) Alcohol intoxication: Status: Acute (2) Suicidal ideation: Status: Acute (3) Hepatitis B: Status: Acute Qualifiers: Viral hepatitis chronicity: chronic Hepatic coma status: without hepatic coma (4) Hepatitis C virus infection cured after antiviral drug therapy: Status: Acute (5) Alcohol use disorder, severe, dependence: Status: Acute (6) Major depressive disorder, recurrent: Status: Acute Plan This is a 61-year-old white male with a long history of addiction and depression and anxiety who presents with active alcohol use expressing concerns about his addiction in general and reporting suicidal thoughts as he is stressed out about his psychosocial circumstances. 1.? Continue current medication.? We will consider increasing Celexa with his permission and explore other possible additions or changes. 2.? Continue every 15 minute checks for safety. 3.? Encourage individual, group and milieu therapies. 4.? Encourage sober living treatment after discharge at the highest level of care to which he is willing to commit. Involuntary Hold Information 96 Hour Hold: 96 Hour Involuntary Admission: No Attestations NPU Medical Necessity Statement*: Inpatient hospitalization is medically necessary and the clinically appropriate intervention at this time.? We will monitor medications and make changes as indicated.? Patient will be in the hospital for over two midnights.? Likely length of stay 3 to 5 days. We will explore whether his suicidal report might represent disinhibited behavior while intoxicated which would shorten his stay. Coding Level of Care Code Acute Men'S Leather Dress Belt Maker for Chg Fwd Diagnoses Alcohol intoxication F10.929 Suicidal ideation R45.851 Hepatitis B B19.10 Viral hepatitis chronicity: chronic Hepatic coma status: without hepatic coma Hepatitis C virus infection cured after antiviral drug therapy Z86.19 Alcohol use disorder, severe, dependence F10.20 Major depressive disorder, recurrent F33.9
[2022-02-08 13:55] VITALS: BP 133/74; PULSE 79; RESP 18; TEMP 37; O2SAT 97
[2022-02-08 20:25] VITALS: BP 135/85; PULSE 88; RESP 20; TEMP 36.6; O2SAT 97
[2022-02-09 06:00] VITALS: BP 131/72; PULSE 62; RESP 16; TEMP 36.9; O2SAT 98
[2022-02-09] MEDS: multivitamin therapeutic Tablet 1 TAB PO (08:44)
[2022-02-09] MEDS: acetaminophen 325 mg Tablet 650 MG PO ×3 (08:45→23:18)
[2022-02-09] MEDS: folic acid 1 mg Tablet PO (08:45)
[2022-02-09] MEDS: thiamine 100 mg Tablet PO (08:45)
[2022-02-09] MEDS: nicotine 21 mg Patch 1 PATCH TRANSDERMA (08:47)
[2022-02-09 14:00] VITALS: BP 169/82; PULSE 87; RESP 20; TEMP 36.6; O2SAT 97
[2022-02-09 15:20] VITALS: BP 169/82; PULSE 87; RESP 20; TEMP 36.6; O2SAT 97
--- NOTE | 2022-02-09 15:59 | W.PM.NPUPNS ---
Subjective NPU Subjective: Patient presents today pivoting away from the getting out immediately as the most important thing and being open to dialogue about his current situation, his drinking and overall treatment. He was agreeable to increase his Celexa to 40 mg p.o. nightly after discussion of the risks, benefits and alternatives and he understood and agreed to proceed as is documented in this note. Additionally he was open to rehab services and considering discharging to a setting that had greater accountability and being at home and came to his addiction to alcohol. Mental Status Exam MSE Comments: This is a overweight older white male with a bald head and hospital scrubs looking younger than stated age with adequate grooming and limited eye contact.? No abnormal movements except for mild ataxia of gait and mild psychomotor retardation cooperative with exam in mild distress.? Speech was decreased rate and volume.? Mood described as depressed, affect congruent and slightly subdued.? Thought process organized.? Thought content: Patient denied suicidal or homicidal ideation, there are no delusions reported or noted, he denies any auditory or visual hallucinations.? Attention concentration were intact and memory appeared mostly reliable but none were formally tested.? He is alert and oriented x3.? Insight and judgment are limited and impulse control is impaired. Vitals/I&O/Wt Last Vital Signs Temp 98 F 02/09/22 15:20 Pulse 87 02/09/22 15:20 Resp 20 H 02/09/22 15:20 BP 169/82 02/09/22 15:20 Pulse Ox 97 02/09/22 15:20 Data NPU : 02/07/22 12:45 02/07/22 13:55 A&P Assessment and plan (1) Major depressive disorder, recurrent: Status: Acute (2) Alcohol use disorder, severe, dependence: Status: Acute (3) Alcohol intoxication: Status: Acute (4) Suicidal ideation: Status: Acute (5) Hepatitis B: Status: Acute Qualifiers: Viral hepatitis chronicity: chronic Hepatic coma status: without hepatic coma (6) Hepatitis C virus infection cured after antiviral drug therapy: Status: Acute Plan This is a 61-year-old white male with a long history of addiction and depression and anxiety who presents with active alcohol use expressing concerns about his addiction in general and reporting suicidal thoughts as he is stressed out about his psychosocial circumstances. 1.? Continue current medication.? We will increase Celexa to 40 mg p.o. nightly. 2.? Continue every 15 minute checks for safety. 3.? Encourage individual, group and milieu therapies. 4.? Encourage sober living treatment after discharge at the highest level of care to which he is willing to commit. He filled out some forms but allowed for referral to rehab services. Involuntary Hold Information 96 Hour Hold: 96 Hour Involuntary Admission: No Attestations NPU Medical Necessity Statement*: Inpatient hospitalization is medically necessary and the clinically appropriate intervention at this time.? We will monitor medications and make changes as indicated.? Likely length of stay 2-4 days.? Coding Level of Care Code Acute Intellectual Property Manager for g Fwd Diagnoses Major depressive disorder, recurrent F33.9 Alcohol use disorder, severe, dependence F10.20 Alcohol intoxication F10.929 Suicidal ideation R45.851 Hepatitis B B19.10 Viral hepatitis chronicity: chronic Hepatic coma status: without hepatic coma Hepatitis C virus infection cured after antiviral drug therapy Z86.19
[2022-02-09] MEDS: nicotine 2 mg Gum BUCCAL (17:11)
[2022-02-09] MEDS: citalopram 20 mg Tablet 40 MG PO (21:10)
[2022-02-10 06:00] VITALS: BP 138/92; PULSE 76; RESP 16; TEMP 36.5; O2SAT 96
[2022-02-10] MEDS: nicotine 2 mg Gum BUCCAL ×2 (06:00→21:39)
[2022-02-10] MEDS: acetaminophen 325 mg Tablet 650 MG PO ×2 (08:56→21:38)
[2022-02-10] MEDS: nicotine 21 mg Patch 1 PATCH TRANSDERMA (08:57)
[2022-02-10] MEDS: thiamine 100 mg Tablet PO (08:57)
[2022-02-10] MEDS: multivitamin therapeutic Tablet 1 TAB PO (08:57)
[2022-02-10] MEDS: folic acid 1 mg Tablet PO (08:57)
--- NOTE | 2022-02-10 11:46 | NPU.GN ---
[facility] Group Topic:Edwar Rogers General Mood of Group: Patient did attend group today. Hygiene was ok, he was social and polite. CSS met with client and discussed [facility] services with patient, Patient was aided in completing the [facility] paperwork for services.
--- NOTE | 2022-02-10 13:25 | P.NPUPN_ITS ---
Subjective NPU Subjective: Patient presents today reporting that he had an episode of possible lightheadedness or jittery uncomfortableness that he thinks might be related to the increase in the Celexa. We discussed the risk benefits and alternatives of decreasing the Celexa to 30 mg p.o. nightly and he understood and agreed proceed as is documented in his note. Otherwise he talked about a plan to follow-up with the sober living treatment that he and the treatment team have scheduled but needing to discharge soon to be able to deal with moving out of his apartment and other personal affairs. We agreed to a plan of discussing how he is feeling in the morning and determining whether he safe to discharge. Mental Status Exam MSE Comments: This is a overweight older white male with a bald head and hospital scrubs looking younger than stated age with adequate grooming and limited eye contact.? No abnormal movements except for mild but resolving ataxia of gait and mild psychomotor retardation cooperative with exam in mild distress.? Speech was decreased rate and volume.? Mood described as a little better, affect congruent and slightly less subdued.? Thought process organized.? Thought content: Patient denied suicidal or homicidal ideation, there are no delusions reported or noted, he denies any auditory or visual hallucinations.? Attention concentration were intact and memory appeared mostly reliable but none were formally tested.? He is alert and oriented x3.? Insight and judgment are limited and impulse control is impaired. Vitals/I&O/Wt Last Vital Signs Temp 97.7 F 02/10/22 06:00 Pulse 76 02/10/22 06:00 Resp 16 02/10/22 06:00 BP 138/92 02/10/22 06:00 Pulse Ox 96 02/10/22 06:00 Data NPU : 02/07/22 12:45 02/07/22 13:55 A&P Assessment and plan (1) Major depressive disorder, recurrent: Status: Acute (2) Alcohol use disorder, severe, dependence: Status: Acute (3) Alcohol intoxication: Status: Acute (4) Suicidal ideation: Status: Acute (5) Hepatitis B: Status: Acute Qualifiers: Hepatic coma status: without hepatic coma Viral hepatitis chronicity: chronic (6) Hepatitis C virus infection cured after antiviral drug therapy: Status: Acute Plan This is a 61-year-old white male with a long history of addiction and depression and anxiety who presents with active alcohol use expressing concerns about his addiction in general and reporting suicidal thoughts as he is stressed out about his psychosocial circumstances. 1.? Continue current medication.? We will decrease Celexa to 30 mg p.o. nightly. 2.? Continue every 15 minute checks for safety. 3.? Encourage individual, group and milieu therapies. 4.? Encourage sober living treatment after discharge at the highest level of care to which he is willing to commit.? He filled out some forms but allowed for referral to rehab services. Involuntary Hold Information 96 Hour Hold: 96 Hour Involuntary Admission: No Attestations NPU Medical Necessity Statement*: Inpatient hospitalization is medically necessary and the clinically appropriate intervention at this time.? We will monitor medi cations and make changes as indicated.?? Likely length of stay 1-3 days.? Coding Level of Care Code Acute Real Estate Closing Coordinator for [facility] Fwd Diagnoses Major depressive disorder, recurrent F33.9 Alcohol use disorder, severe, dependence F10.20 Alcohol intoxication F10.929 Suicidal ideation R45.851 Hepatitis B B19.10 Hepatic coma status: without hepatic coma Viral hepatitis chronicity: chronic Hepatitis C virus infection cured after antiviral drug therapy Z86.19
[2022-02-10 14:00] VITALS: BP 150/89; PULSE 82; RESP 18; O2SAT 97
[2022-02-10 19:29] VITALS: BP 153/106; PULSE 80; RESP 22; O2SAT 96
[2022-02-10] MEDS: citalopram 20 mg Tablet 40 MG PO (21:38)
[2022-02-11 05:02] VITALS: BP 120/78; PULSE 64; RESP 18; TEMP 36.6; O2SAT 97
--- NOTE | 2022-02-11 08:32 | PC.NURSE ---
PT UP THIS MORNING. DOING WELL. REPORTS SLEEPING WELL THOUGHOUT NIGHT. DENIES ANY WITHDRAW SYMPTOMS. DENIES AVH AND SI/HI. ALERT AND ORIENTED. CALM AND COOPERATIVE.
[2022-02-11] MEDS: acetaminophen 325 mg Tablet 650 MG PO ×3 (08:59→19:04)
[2022-02-11] MEDS: multivitamin therapeutic Tablet 1 TAB PO (09:00)
[2022-02-11] MEDS: thiamine 100 mg Tablet PO (09:00)
[2022-02-11] MEDS: nicotine 21 mg Patch 1 PATCH TRANSDERMA (09:00)
[2022-02-11] MEDS: folic acid 1 mg Tablet PO (09:00)
--- NOTE | 2022-02-11 12:38 | NPU.GN ---
[facility] Group Topic:Dice Breaker General Mood of Group Patient did attend and participate in group today, he was social. Hygiene was ok and mental status seems stable at this time.
[2022-02-11 14:00] VITALS: BP 138/77; PULSE 69; RESP 17; TEMP 36.5; O2SAT 94
--- NOTE | 2022-02-11 18:34 | W.PM.NPUPNS ---
Subjective NPU Subjective: Patient is in today reporting that he will stay overnight and and await seeing if he got excepted by that program We discussed at length concerns that his bad domínguez might be encouraging him to take a position to put in a greater risk. He reports that he does understand that he probably should not go to a place that he can go to rehab and pay for place while he is not even going to be living there. He reports that he is feeling a little more stable. Mental Status Exam MSE Comments: This is a overweight older white male with a bald head and hospital scrubs with adequate grooming and limited eye contact.? No abnormal movements except for mild but resolving ataxia of gait and mild psychomotor retardation cooperative with exam in no acute distress.? Speech was more normal rate and volume.? Mood described as better, affect congruent and slightly less subdued.? Thought process organized.? Thought content: Patient denied suicidal or homicidal ideation, there are no delusions reported or noted, he denies any auditory or visual hallucinations.? Attention concentration were intact and memory appeared mostly reliable but none were formally tested.? He is alert and oriented x3.? Insight and judgment are limited and impulse control is impaired. Vitals/I&O/Wt Last Vital Signs Temp 98.2 F 02/11/22 21:25 Pulse 75 02/11/22 21:25 Resp 20 H 02/11/22 21:25 BP 127/81 02/11/22 21:25 Pulse Ox 98 02/11/22 21:25 Data NPU : 02/07/22 12:45 02/07/22 13:55 A&P Assessment and plan (1) Major depressive disorder, recurrent: Status: Acute (2) Alcohol use disorder, severe, dependence: Status: Acute (3) Alcohol intoxication: Status: Acute (4) Suicidal ideation: Status: Acute (5) Hepatitis B: Status: Acute Qualifiers: Viral hepatitis chronicity: chronic Hepatic coma status: without hepatic coma (6) Hepatitis C virus infection cured after antiviral drug therapy: Status: Acute Plan This is a 61-year-old white male with a long history of addiction and depression and anxiety who presents with active alcohol use expressing concerns about his addiction in general and reporting suicidal thoughts as he is stressed out about his psychosocial circumstances. 1.? Continue current medication.? We will decrease Celexa to 30 mg p.o. nightly. 2.? Continue every 15 minute checks for safety. 3.? Encourage individual, group and milieu therapies. 4.? Encourage sober living treatment after discharge at the highest level of care to which he is willing to commit.? He filled out some forms but allowed for referral to rehab services. Involuntary Hold Information 96 Hour Hold: 96 Hour Involuntary Admission: No Attestations NPU Medical Necessity Statement*: Inpatient hospitalization is medically necessary and the clinically appropriate intervention at this time.? We will monitor medications and make changes as indicated.?? Likely length of stay 1-2 days.? Coding Level of Care Code Acute Program Manager Transportation for Chg Fwd Diagnoses Major depressive disorder, recurrent F33.9 Alcohol use disorder, severe, dependence F10.20 Alcohol intoxication F10.929 Suicidal ideation R45.851 Hepatitis B B19.10 Viral hepatitis chronicity: chronic Hepatic coma status: without hepatic coma Hepatitis C virus infection cured after antiviral drug therapy Z86.19
[2022-02-11] MEDS: citalopram 20 mg Tablet 30 MG PO (20:54)
[2022-02-11] MEDS: docusate sodium 100 mg Capsule 200 MG PO (20:54)
[2022-02-11 21:25] VITALS: BP 127/81; PULSE 75; RESP 20; TEMP 36.8; O2SAT 98
[2022-02-11] MEDS: quetiapine 100 mg Tablet PO (21:49)
--- NOTE | 2022-02-11 23:59 | PC.NURSE ---
PRN ADMIN Patient c/o of trouble getting to sleep, PRN trazodone given as ordered with noted effectiveness.
[2022-02-12 06:00] VITALS: BP 113/78; PULSE 90; RESP 20; TEMP 37; O2SAT 98
[2022-02-12] MEDS: nicotine 21 mg Patch 1 PATCH TRANSDERMA (08:06)
[2022-02-12] MEDS: folic acid 1 mg Tablet PO (08:06)
[2022-02-12] MEDS: multivitamin therapeutic Tablet 1 TAB PO (08:06)
[2022-02-12] MEDS: thiamine 100 mg Tablet PO (08:06)
--- NOTE | 2022-02-12 10:39 | NPU.GN ---
[facility] Topic: Edwar Rogers General Mood of Group: Patient did attend and participate in group today. Patients hygiene was good. Patient was social and seems unstable at this time. Patient seemed off today with his demeanour. Patient asked to talk with this comic writer after group. This comic writer met with client after group and let patient vent. Patient disclosed that he was given Trazadone and he dont want to continue taking ut because it give him bad thoughts and puts him in a bad mood. This comic writer suggested that the patient report his concerns with the nursing staff and the doctor. The patient thanked this comic writer for listening , guidance and support.
--- NOTE | 2022-02-12 12:58 | PC.NURSE ---
PT CALM AND COOPERATIVE. SPOKE WITH SW ABOUT DISCHARGING TODAY. PT REPORTS FEELING PREPARED TO DISCHARGE TODAY. PLAN IS TO GO HOME AND BEGIN PREPARING BELONGINGS TO MOVE.
--- NOTE | 2022-02-12 13:35 | W.PM.NPUDCS ---
Diagnoses at Discharge Discharge Diagnosis (1) Major depressive disorder, recurrent: Status: Acute (2) Alcohol use disorder, severe, dependence: Status: Acute (3) Alcohol intoxication: Status: Resolved (4) Suicidal ideation: Status: Resolved (5) Hepatitis B: Status: Acute Qualifiers: Hepatic coma status: without hepatic coma Viral hepatitis chronicity: chronic (6) Hepatitis C virus infection cured after antiviral drug therapy: Status: Acute Reason for Visit Reason for Visit: ETOH; SI Brief History: History of Present Illness Marcos Lazar is a 61 year old male who presented to the emergency department with the following report: Chief complaint: P sychiatric Symptom s Stated complaint : ETOH; SI Time Se en by Provider: 12:42? ? History of Present Illness:??? HPI: [61]yo patien t w/ hx of chronic alochol use BIBA for acute intoxica tion and suicidal ideation.? Per EMS , patient was note d to be confused a t a longterm and in toxicated.? Patien t verbalized threa ts to hurt himself .? Bystander clements d EMS and patient was brought to the emergency room.? On arrival, the rashmi soto is AAOx3 and cooperative with my evaluation. No focal complaints o f chest pain, shor tness of breath, p alpitations, N/V, focal GI/ compla ints. Hx limited b y cognitive status currently.? Patie nt occasionally an swering questions but is incoherent and slurring words Onset: unknown Du ration: ongoing Lo cation: longterm Se verity: moderate He was admitted to the neuropsychiatric unit for definitive treatment of those issues.? He is known to this loan underwriter through past inpatient services most recently in June of last year.? He denies any significant changes since then however he does report that secondary to some episode surrounding smoking cigarettes he is being evicted from his current property in about 2 weeks.? He was very upset because the behavior is fairly common but he feels he is being singled out which is why he is not going to contest that but now he has 2 weeks to find a new place to live or he will be homeless which makes him fairly anxious.? He reports that he was trying to drink himself to and presented with a blood alcohol of 420.? Ultimately there was a explosion in the emergency department because he did not like the fact that they were going to discharge him immediately which led to him getting 5 mg of Haldol and 2 mg of Ativan.? He was admitted and placed on the [facility] protocol for his withdrawal.? We discussed the risk benefits and alternatives of increasing his medication for his depression and he understood and agreed to proceed as is documented in this note though it was not clear whether he wanted to increase the Celexa or not.? He reports he has been drinking uncontrollably and understands that until he stops that he will not get better.? He also reports that his depression has been a problem and that he was trying to kill himself with drinking.? An excerpt from his June note is included below for context given no substantive changes since then. Per his 07/10/2021 [facility] inpatient psychiatric evaluation: History of Present Illness Marcos Lazar is a 61 year old male who presented to an outside hospital with affidavits reporting that he was labile, tearful, threatening and apologizing almost all at once.? He reported he had guns at home and needed help with his mood and addiction or he was going to kill himself with one of his guns.? He had multiple affidavits and everything notarized but once that short of completing a 96-hour hold and he was transferred to [facility] and admitted to the neuropsychiatric unit for definitive treatment of those issues.? He presents today reporting that he had 1 previous psychiatric admission here about 7 to 8 years ago.? Since of that admission back in 2012 was noted.? He denies outpatient services he reports he has had a history of being on medication but nothing recently.? He reports he been on medication for depression and anxiety.? He denies any previous suicide attempts.? He reports that he smokes about a pack and a half of cigarettes a day, has had alcohol off and on, marijuana denied he denied other illicit drugs except methamphetamine.? His blood alcohol was 132 at the outside hospital and his UDS was negative but he reports he has struggled with methamphetamine with previous daily difficulties but now is been headedness.? He is never to rehab and reports he had 2 DUIs the last 1 was maybe 5+ years ago.? He reports his been 3 days without drinks that he got a tallboy that he did not follow with a bunch of whiskey and he wonders if he got alcohol poisoning and was just feeling strange at the time that he was admitted.? He denies current lethality and saying that he feels better now wants to be discharged. Psychiatric history: As above. Substance abuse history: As above. Family history: He endorsed mental health issues on his mom's side denied mental health issues on his father side, addiction issues on either side of the family but does report he had uncles on his mom side of committed suicide. Developmental history: There were no problems with the , or delivery, learned to walk and talk and met developmental milestones on time, and denies need for speech therapy, learning support, emotional support or special education classes. Psychosocial history: He reports his parents were getting he was born and they have 3 sons of which he is the middle son.? He reports his childhood was really good and he denies emotional, physical or sexual abuse.? He reports that he made it to the 12th grade and ultimately got his GED.? He endorses being heterosexual with his long relationship being 6 years.? He is been one time once, has no children, is never in the and reports that he goes to the [employer].? He reports that he worked for 18 years for [employer] and lives in an apartment alone. Legal history: He reports he been in [facility] before but the longest x3 days.? Medical history: He reports he is concerned that he has cirrhosis. Hospital Course Hospital Course He slowly acclimated to the individual, group and milieu therapies provided. He was placed on a CIWA protocol to assist in his withdrawal. His Celexa was continued and reduced to 30 mg p.o. nightly after being initially increased to 40 with some jitteriness leading to the subsequent decrease. He reported a plan to follow-up with sober living treatment after discharge once he got his apartment in order due to his addiction. He was able to contract for safety outside the hospital prior to discharge. During the hospitalization, patient had routine laboratory studies which were within normal limits except for few outliers. Additionally there was a general medical evaluation which was also within normal limits and revealed no new acute processes. Discharge Summary: At the time of discharge, he denied psychosis or lethality. Mood and anxiety were well managed. Patient endorsed a plan to avoid all drugs of abuse and follow-up with the aftercare recommendations of the treatment team. Patient was evaluated and deemed to be absent credible lethality, and had achieved the maximum benefit from an inpatient hospitalization, so was discharged. Involuntary Hold Information 96 Hour Hold: 96 Hour Involuntary Admission: No Mental Status Exam MSE Comments: This is a overweight older white male with a bald head and hospital scrubs with adequate grooming and limited eye contact.? No abnormal movements except for mild but resolving ataxia of gait. Cooperative with exam in no acute distress.? Speech was more normal rate and volume.? Mood described as pretty good, affect congruent.? Thought process organized.? Thought content: Patient denied suicidal or homicidal ideation, there are no delusions reported or noted, he denies any auditory or visual hallucinations.? Attention concentration were intact and memory appeared mostly reliable but none were formally tested.? He is alert and oriented x3.? Insight and judgment are limited, but improving and impulse control is limited. Discharge Data Studies Completed and Pending: Completed Studies During Hospitalization Category Date Time Status CT head wo con* 7 0450 Urgent Cat Scan 02/07/22 12:45 Completed Radiology Impressions Head CT 02/07/22 12:45 IMPRESSION: 1. No evidence of acute intracranial abnormality. No evidence of acute infarction, hemorrhage, or mass. 2. Atrophy and microvascular disease. 3. Left frontal skin thickening and directly visualized to evaluate for mass/lesion. 4. Right maxillary sinus polyp or small mass. Left maxillary sinus polyp or retention cyst. Laboratory Results WBC 8.5 10^3/uL (4.0- 10.0) 02/07/22 12:45 RBC 4.02 10^6/uL (4.1 -5.3) L 02/07/22 12:45 Hgb 12.3 g/dL (11.7-1 6.6) 02/07/22 12:45 Hct 37.4 % (42.0-52.0 ) L 02/07/22 12:45 MCV 93.0 fl (80-94) 02/07/22 12:45 MCH 30.6 pg (28.0-34. 0) 02/07/22 12:45 MCHC 32.9 g/dL (30.0-3 6.0) 02/07/22 12:45 RDW 14.4 % (12.1-15.1 ) 02/07/22 12:45 Plt Count 294 10^3/cmm (130 -400) 02/07/22 12:45 MPV 8.8 fL (7.4-10.4) 02/07/22 12:45 Neut % (Auto) 53.9 % 02/07/22 12:45 Lymph % (Auto) 35.3 % 02/07/22 12:45 [place] % (Auto) 8.0 % 02/07/22 12:45 Eos % (Auto) 1.2 % 02/07/22 12:45 Baso % (Auto) 0.9 % 02/07/22 12:45 Neut # (Auto) 4.57 10^3/uL (1.8 -7.7) 02/07/22 12:45 Lymph # (Auto) 3.0 10^3/uL (0.8- 4.8) 02/07/22 12:45 [place] # (Auto) 0.7 10^3/uL (0.2- 0.9) 02/07/22 12:45 Eos # (Auto) 0.1 10^3/uL (0.0- 0.8) 02/07/22 12:45 Baso # (Auto) 0.1 10^3/uL (0.0- 0.1) 02/07/22 12:45 Nucleated RBC % (a uto) 0 % 02/07/22 12:45 Nucleated RBCs # 0.0 /100WBC 02/07/22 12:45 Sodium 136 mmol/L (136-1 45) 02/07/22 13:55 Potassium 4.4 mmol/L (3.5-5 .1) 02/07/22 13:55 Chloride 104 mmol/L (98-10 7) 02/07/22 13:55 Carbon Dioxide 20 mmol/L (22-29) L 02/07/22 13:55 Anion Gap 16.4 (5-19) 02/07/22 13:55 BUN 10 mg/dL (8-23) 02/07/22 13:55 Creatinine 0.7 mg/dL (0.7-1. 2) 02/07/22 13:55 GFR Calculation 114.3 mL/min (90- 130) 02/07/22 13:55 Glucose 98 mg/dL (65-115) 02/07/22 13:55 Calculated Osmolal ity 281 mOsm/kg (285- 295) L 02/07/22 13:55 Calcium 7.9 mg/dL (8.5-10 .5) L 02/07/22 13:55 Total Bilirubin 0.2 mg/dL (0.15-1 .2) 02/07/22 13:55 AST 68 U/L (0-40) H 02/07/22 13:55 ALT 75 U/L (0-41) H 02/07/22 13:55 Alkaline Phosphata se 75 IU/L (40-130) 02/07/22 13:55 Total Protein 6.7 g/dL (6.6-8.7 ) 02/07/22 13:55 Albumin 3.4 g/dL (3.5-5.2 ) L 02/07/22 13:55 Globulin 3.3 g/dL (1.3-4.6 ) 02/07/22 13:55 Lipase 87 U/L (13-60) H 02/07/22 13:55 Salicylates < 0.3 mg/dL (3-10 ) L 02/07/22 13:55 Urine Opiates Scre en Negative ng/mL (N egative) 02/07/22 16:22 Acetaminophen < 5.0 ug/mL (10-3 0) L 02/07/22 13:55 Ur Barbiturates Sc reen Negative ng/mL (N egative) 02/07/22 16:22 Ur Phencyclidine S crn Negative ng/mL (N egative) 02/07/22 16:22 Ur Amphetamines Sc reen Negative ng/mL (N egative) 02/07/22 16:22 U Benzodiazepines Scrn Negative ng/mL (N egative) 02/07/22 16:22 Urine Cocaine Scre en Negative ng/mL (N egative) 02/07/22 16:22 U Marijuana (THC) Screen Negative ng/mL (N egative) 02/07/22 16:22 Ethyl Alcohol 243 mg/dL (0-10) H 02/07/22 20:54 Vitals: Last Vital Signs Temp 98.6 F 02/12/22 06:00 Pulse 90 02/12/22 06:00 Resp 20 H 02/12/22 06:00 BP 113/78 02/12/22 06:00 Pulse Ox 98 02/12/22 06:00 Discharge Plan Discharge Patient Disposition: Home Condition: Stable Prescriptions: New citalopram 20 mg Tablet 30 mg PO BEDTIME 30 Days Qty: 45 1RF Vitamin B-1 (mononitrate) 100 mg Tablet 100 mg PO DAILY 30 Days Qty: 30 1RF Continued amlodipine 10 mg tablet 10 mg PO DAILY 0RF lisinopril-hydrochlorothiazide 20-25 mg tablet 1 tab PO DAILY 0RF hydroxyzine pamoate 50 mg capsule 50 mg PO TID PRN (Reason: Anxiety) 30 Days Qty: 90 1RF Discontinued citalopram 20 mg tablet 20 mg PO DAILY 0RF hydroxyzine HCl 25 mg tablet 25 mg PO Q6H PRN (Reason: anxiety) Qty: 10 0RF Discharge Orders: Discharge Order (Routine); Ordered 02/12/22 Ordered By: Jose Ball Referrals: [facility]Pati GUNDERSON [Other] - 02/16/22 10:45 am (Follow Up) [facility]-Antoine Kamara [Other] - 02/19/22 12:00 pm (Follow up with therpapist. ) Jason Johns [Other] - 1-3 days (Approved to attend the program and [facility] will pay the entrance fee.) [facility] [Outside] - 02/18/22 1:30 pm (Arrive at 1:30pm to complete paperwork appointment time is 2pm. ) Discharge Diet: Regular Discharge Activity: Resume usual activity Patient Instructions: Alcohol Abuse, Depression, Opioid Safety Discharge Attestations NPU Time Spent in Discharge Care*: less than 30 min Specific Discharge Activities: Specific discharge activities: educating patient, discussing with case monitor/social workers/dc planners, documenting/other paperwork and evaluating patient/reviewing data Status at Discharge: Cognitive status at discharge: cognitively intact, Behavioral status at discharge: cooperative, Coding Level of Care Code Acute [facility] DC note Diagnoses Major depressive disorder, recurrent F33.9 Alcohol use disorder, severe, dependence F10.20 Alcohol intoxication F10.929 Suicidal ideation R45.851 Hepatitis B B19.10 Hepatic coma status: without hepatic coma Viral hepatitis chronicity: chronic Hepatitis C virus infection cured after antiviral drug therapy Z86.19
[2022-02-12 13:48] VITALS: BP 113/78; PULSE 90; RESP 20; TEMP 37; O2SAT 98
[2022-02-12 13:50] VITALS: BP 152/91; PULSE 86; RESP 17; TEMP 36.7; O2SAT 98
== END 2022-02-12 15:23 | disposition home or self-care (01) | DRG 897 ==
LOC: ER 18:35 → NP 20:39
PROVIDERS: Admitting Provider Psychiatry & Neurology Psychiatry; Emergency Provider Emergency Medicine; Visit Provider Psychiatry & Neurology Psychiatry
DX: F10.229 Alcohol dependence with intoxication, unspecified (principal); R45.851 Suicidal ideations; B18.1 Chronic viral hepatitis B without delta-agent; F33.9 Major depressive disorder, recurrent, unspecified; Y90.8 Blood alcohol level of 240 mg/100 ml or more; Z87.891 Personal history of nicotine dependence; Z86.19 Personal history of other infectious and parasitic diseases; F41.9 Anxiety disorder, unspecified
CPT/HCPCS: 70450; 80053; 80306; 80307; 83690; 85025; 96372; 97150; 97165; 99285; J1200; J1630; J2060

== ENCOUNTER 2022-02-26 10:11 | Emergency (ER) | payer BC, MEDICAID, SELFPAY ==
[2022-02-26 10:19] VITALS: BP 108/70; PULSE 70; RESP 18; TEMP 36.7; O2SAT 99; BMI 25.4
--- NOTE | 2022-02-26 10:33 | XRR_ITS ---
PROCEDURE INFORMATION: Exam: XR Chest Exam date and time: 02/26/2022 10:45 AM Age: 61 years old Clinical indication: Patient HX: Patient is a 61-year-old male comes to the ED with cough and nasal congestion/drainage. Symptoms have been going on now for little over a week and a half. His cough is described as productive with clear sputum. He sukhdev current heavy tobacco smoker with an over [id number] history. He has been told by some doctors before that he has copd. ; Additional info: Productive cough TECHNIQUE: Imaging protocol: XR of the chest. Views: 1 view. COMPARISON: CR (CHEST, ) 08/22/2021 1:07 AM FINDINGS: Lungs: Unremarkable. No consolidation. Pleural spaces: Unremarkable. No pleural effusion. No pneumothorax. Heart/Mediastinum: Unremarkable. No cardiomegaly. Bones/joints: Fixation screws left humerus XR/XR chest 1V portable [id number] IMPRESSION: No acute findings.
--- NOTE | 2022-02-26 10:34 | W.ED.URI ---
HPI - URI/Sore Throat General: Chief Complaint: Upper Respiratory Infection Stated Complaint: Cough, congestion, Time Seen by Provider: 02/26/22 10:26 History of Present Illness: Patient is a 61-year-old male comes to the ED with cough and nasal congestion/drainage. Symptoms have been going on now for little over a week and a half. His cough is described as productive with clear sputum. He sukhdev current heavy tobacco smoker with an over [id number] history. He has been told by some doctors before that he has COPD. He is currently in a sober living treatment facility for alcohol detox. His main concern was to get checked out to make sure he does not have any illness that he can spread to other patients at treatment facility. He is able to keep p.o. food and fluids down and denies any recent change in appetite or intake. Denies any fever, nausea/vomiting, chest pain, shortness of breath, abdominal pain, chills, body aches, bladder or bowel symptoms. Associated symptoms: Reports nasal congestion; Deny abdominal pain, chills, chest pain, diarrhea, fever(s), headache(s), nausea or vomiting Review of Systems Const: Denies: fever(s), chills or fatigue Eyes: Denies: change in vision or eye discomfort ENMT: Reports: nasal discharge and nasal congestion; Denies: throat pain or odynophagia Card: Denies: chest pain, palpitations, edema, swelling of feet/ankles, dyspnea on exertion or orthopnea Resp: Reports: productive cough; Denies: dyspnea or non-productive cough GI: Denies: abdominal pain, nausea, vomiting, diarrhea, constipation or hematochezia : Denies: flank pain, difficulty urinating, dysuria or hematuria Musc: Denies: neck pain, back pain or extremity swelling Skin/Breast: Denies: rash or new lesions Neuro: Denies: headache(s), numbness in extremities or weakness in extremities PFSH ED PFSH: Medical History Alcohol intoxication Hepatitis B Psychiatric care Suicidal ideation Social History Smoking and tobacco status: former smoker Alcohol intake: current Alcohol intake frequency: 3 or more drinks per day Lives independently: Yes Household members: none Marital status: Single service: No History of recent travel: No Physical Exam Const: COMMON NORMALS: no acute distress, patient oriented x3, healthy appearing and alert GENERAL APPEARANCE: cooperative and comfortable HENMT: COMMON NORMALS: normocephalic HEAD & SCALP: normocephalic MOUTH: Normal oral and palatal mucosa present THROAT: posterior oropharynx normal and uvula midline Neck/C-Spine: COMMON NORMALS: supple GENERAL: Yes normal visual inspection Resp: COMMON NORMALS: normal respiratory effort, No retractions, No use of accessory muscles and clear to auscultation bilaterally AUSCULTATION: clear to auscultation bilaterally Cardio: COMMON NORMALS: regular rate, regular rhythm, S1 normal heart sound present, S2 normal heart sound present, No gallops present (Cardio), No clicks present (Cardio), No murmurs present (Cardio) and Peripheral pulses 2+ throughout RATE: regular rate RHYTHM: regular rhythm HEART SOUNDS: S1 normal heart sound present and S2 normal heart sound present PERIPHERAL PULSES: Peripheral pulses 2+ throughout GI: COMMON NORMALS: Normal to inspection, nondistended, normoactive bowel sounds present, Soft to palpation, non-tender and no masses PALPATION: Yes Soft to palpation : COMMON NORMALS: Yes no CVA tenderness BLADDER/KIDNEY EXAM: Yes no CVA tenderness Back/Pelvis: COMMON NORMALS: no CVA tenderness Extremity: COMMON NORMALS: normal to inspection Neuro: COMMON NORMALS: patient oriented x3 and moves all extremities SENSORIUM/ORIENTATION: Yes alert Skin: GENERAL SKIN EXAM: dry skin Course Vital Signs: Vital signs: Vital Signs Temperature 98.1 F 02/26/22 10:19 Pulse Rate 70 02/26/22 12:08 Respiratory Rate 16 02/26/22 12:08 Blood Pressure 132/82 02/26/22 12:08 Pulse Oximetry 98 02/26/22 12:08 MDM - URI/Sore Throat Medical Decision Making Patient is a 61-year-old male who comes to the ED with upper respiratory symptoms. He has a productive cough with clear sputum. He has a history of COPD and is currently a heavy smoker. Vitals are stable. Exam is benign and patient appears nontoxic in no acute distress or pain. Chest x-ray showed no acute findings. Influenza and COVID were negative. Due to patient's history of having a productive cough he was diagnosed with bronchitis and was discharged home with a prescription for an albuterol inhaler, azithromycin and prednisone. He still follow-up with his PCP in the next week for reevaluation. Return to ED precautions given. Patient is to agree with plan. Lab Data I reviewed the patient's lab results. Radiology Impressions Chest X-Ray 02/26/22 10:33 IMPRESSION: No acute findings. Laboratory Results Coronavirus 229E (PCR) Not detected (NOT DETECT) 02/26/22 10:48 Influenza Type A Ag Negative (Negative) 02/26/22 10:48 Influenza Type B Ag Negative (Negative) 02/26/22 10:48 SARS-CoV-2 (PCR) Not detected (NOT DETECT) 02/26/22 10:48 Discharge Plan Discharge Patient Disposition: Home Clinical Impression: Bronchitis Condition: Stable Prescriptions: New azithromycin 250 mg tablet 250 mg PO DAILY 4 Days Qty: 4 0RF Rx Instructions: start on day 2 of therapy prednisone 20 mg tablet 20 mg PO BID 5 Days Qty: 10 0RF albuterol sulfate 90 mcg/actuation HFA aerosol inhaler 2 inh inhalation Q6H PRN (Reason: shortness of breath or wheezing) Qty: 8.5 0RF No Action amlodipine 10 mg tablet 10 mg PO DAILY 0RF lisinopril-hydrochlorothiazide 20-25 mg tablet 1 tab PO DAILY 0RF citalopram 20 mg Tablet 30 mg PO BEDTIME 30 Days Qty: 45 1RF Vitamin B-1 (mononitrate) 100 mg Tablet 100 mg PO DAILY 30 Days Qty: 30 1RF hydroxyzine pamoate 50 mg capsule 50 mg PO TID PRN (Reason: Anxiety) 30 Days Qty: 90 1RF Discharge Orders: Discharge ED (Routine); Ordered 02/26/22 Ordered By: Chencho Henderson Discharge Diet: Regular Discharge Activity: Increase activity as tolerated Patient Instructions: Bronchitis (Acute) - Adult Activity Restrictions/Additional Instructions: Follow-up with medical provider as directed in the next 5 to 7 days reevaluation. Influenza and COVID test are pending, so call [facility] this afternoon to find out test results. You were given a dose of antibiotics and steroids here in the ED, so you canstart taking your prescriptions for prednisone and azithromycin tomorrow. Use albuterol inhaler as needed for any shortness of breath or wheezing. Take medications as prescribed. Return to the ER or your medical provider if condition worsens. Please read and understand discharge instructions. Thank you for choosing [facility] for your healthcare needs today. Please realize this is an emergency room and that we are providing you with a medical screening exam and this may not be complete and all inclusive of all the testing and or work up that you may need to determine your ailment or severity of your illness. It is very important that you follow up as instructed or that you return to the Emergency Department should you have concerns or if your condition changes or worsens in any way. Coding Level of Care Code ED Journalism Instructor for Ramonita Fwd Exam Comprehensive
[2022-02-26 11:49] LABS: Influenza A by IFA Negative (Negative); Influenza B by IFA Negative (Negative)
[2022-02-26] MEDS: azithromycin 250 mg Tablet 500 MG PO (11:51)
[2022-02-26 12:08] VITALS: BP 132/82; PULSE 70; RESP 16; O2SAT 98
[2022-02-26 12:45] LABS: Adenovirus Not Detected (NOT DETECT); Chlamydia Pneumoniae Not Detected (NOT DETECT); Coronavirus 229E,HKU1,NL63,OC4 Not Detected (NOT DETECT); Human Metapneumovirus Not Detected (NOT DETECT); Human Rhinovirus/Enterovirus Not Detected (NOT DETECT); Influenza A Not Detected (NOT DETECT); Influenza A H1 Not Detected (NOT DETECT); Influenza A H1-2009 Not Detected (NOT DETECT); Influenza A H3 Not Detected (NOT DETECT); Influenza B Not Detected (NOT DETECT); Mycoplasma Pneumoniae Not Detected (NOT DETECT); Parainfluenza Virus Type 1 Not Detected (NOT DETECT); Parainfluenza Virus Type 2 Not Detected (NOT DETECT); Parainfluenza Virus Type 3 Not Detected (NOT DETECT); Parainfluenza Virus Type 4 Not Detected (NOT DETECT); Respiratory Syncytial Virus A Not Detected (NOT DETECT); Respiratory Syncytial Virus B Not Detected (NOT DETECT); SARS-COV-2 Not Detected (NOT DETECT)
== END 2022-02-26 12:09 | disposition home or self-care (01) ==
PROVIDERS: Emergency Provider Physician Assistant
DX: J40 Bronchitis, not specified as acute or chronic (principal); F17.210 Nicotine dependence, cigarettes, uncomplicated
CPT/HCPCS: 71045; 87635; 87804; 96372; 99283; J2930; Q0144

== ENCOUNTER 2022-03-03 | Outpatient (CLI) | payer BC, MEDICAID, SELFPAY | END 2022-03-03 00:01 | disposition home or self-care (01) | LOC: RAD 04-02 09:24 | PROVIDERS: Visit Provider Family Medicine | DX: G47.00 Insomnia, unspecified (principal); F33.9 Major depressive disorder, recurrent, unspecified; F10.20 Alcohol dependence, uncomplicated; B19.10 Unspecified viral hepatitis B without hepatic coma; Z86.19 Personal history of other infectious and parasitic diseases; R79.89 Other specified abnormal findings of blood chemistry; I10 Essential (primary) hypertension | CPT/HCPCS: 80053; 80061; 84153; 84443; 86705; 86706; 87340; 87389; 87522 ==

== ENCOUNTER → 2022-03-05 11:32 | Outpatient (BNVA) | payer BC, MEDICAID, SELFPAY | PROVIDERS: Visit Provider Nurse Practitioner | DX: F33.9 Major depressive disorder, recurrent, unspecified (principal); F17.210 Nicotine dependence, cigarettes, uncomplicated; F10.20 Alcohol dependence, uncomplicated; F15.21 Other stimulant dependence, in remission | CPT/HCPCS: 90792 ==

== ENCOUNTER → 2022-03-08 13:33 | Outpatient (BNVA) | payer BC, MEDICAID, SELFPAY | PROVIDERS: Visit Provider Counselor Professional | DX: F33.0 Major depressive disorder, recurrent, mild (principal); F10.20 Alcohol dependence, uncomplicated; F17.210 Nicotine dependence, cigarettes, uncomplicated | CPT/HCPCS: 90834 ==

== ENCOUNTER → 2022-03-29 13:38 | Outpatient (BNVA) | payer BC, MEDICAID, SELFPAY | PROVIDERS: Visit Provider Counselor Professional | DX: F33.9 Major depressive disorder, recurrent, unspecified (principal); F10.20 Alcohol dependence, uncomplicated; F17.210 Nicotine dependence, cigarettes, uncomplicated | CPT/HCPCS: 90834 ==

== ENCOUNTER → 2022-04-14 16:00 | Outpatient (BNVA) | payer BC, MEDICAID, SELFPAY | PROVIDERS: Visit Provider Counselor Professional | DX: F10.20 Alcohol dependence, uncomplicated (principal) | CPT/HCPCS: 90853 ==

== ENCOUNTER → 2022-04-15 14:22 | Outpatient (BNVA) | payer BC, MEDICAID, SELFPAY | PROVIDERS: Visit Provider Counselor Professional | DX: F33.9 Major depressive disorder, recurrent, unspecified (principal); F10.20 Alcohol dependence, uncomplicated; F17.210 Nicotine dependence, cigarettes, uncomplicated | CPT/HCPCS: 90834 ==

== ENCOUNTER → 2022-04-21 15:42 | Outpatient (BNVA) | payer BC, MEDICAID, SELFPAY | PROVIDERS: Visit Provider Counselor Professional | DX: F10.20 Alcohol dependence, uncomplicated (principal); F32.A Depression, unspecified | CPT/HCPCS: 90853 ==

== ENCOUNTER → 2022-05-03 08:39 | Outpatient (BNVA) | payer BC, SELFPAY | PROVIDERS: Visit Provider Counselor Professional | DX: F33.9 Major depressive disorder, recurrent, unspecified (principal); F10.20 Alcohol dependence, uncomplicated; F17.210 Nicotine dependence, cigarettes, uncomplicated | CPT/HCPCS: 90834 ==

== ENCOUNTER → 2022-05-05 11:44 | Outpatient (BNVA) | payer BC, SELFPAY | PROVIDERS: Visit Provider Counselor Professional | DX: F10.24 Alcohol dependence with alcohol-induced mood disorder (principal) | CPT/HCPCS: 90853 ==

== ENCOUNTER → 2022-05-07 13:24 | Outpatient (BNVA) | payer BC, SELFPAY | PROVIDERS: Visit Provider Nurse Practitioner | DX: F33.9 Major depressive disorder, recurrent, unspecified (principal); F17.210 Nicotine dependence, cigarettes, uncomplicated; F15.21 Other stimulant dependence, in remission; F10.20 Alcohol dependence, uncomplicated | CPT/HCPCS: 99214 ==

== ENCOUNTER → 2022-05-12 14:45 | Outpatient (BNVA) | payer BC, SELFPAY | PROVIDERS: Visit Provider Counselor Professional | DX: F33.9 Major depressive disorder, recurrent, unspecified (principal) | CPT/HCPCS: 90853 ==

== ENCOUNTER 2022-07-08 18:13 | Emergency (ER) | payer BC, MEDICAID, SELFPAY ==
--- NOTE | 2022-07-08 18:20 | ECG_ITS ---
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 Measurements Intervals [place] Rate: 91 P: 84 FL: 163 QRS: 72 QRSD: 96 T: 70 QT: 366 QTc: 451 Interpretive Statements SINUS RHYTHM RIGHT ATRIAL ENLARGEMENT [0.3mV P-WAVE] Compared to ECG 12/31/2021 09:48:09 No significant changes Electronically Signed On 07-09-2022 6:16:30 CDT by Sondra Arora M.D. [id number] f
[2022-07-08 18:22] VITALS: PULSE 95; RESP 16; TEMP 36.7; O2SAT 96; BMI 24.9
--- NOTE | 2022-07-08 18:25 | PC.NURSE ---
PT DENIES ANY CP UPON TRAIGE.
--- NOTE | 2022-07-08 18:28 | XRR_ITS ---
PROCEDURE INFORMATION: Exam: XR Chest Exam date and time: 07/08/2022 6:35 PM Age: 62 years old Clinical indication: Chest wall pain; Additional info: Cp TECHNIQUE: Imaging protocol: Radiologic exam of the chest. Views: 1 view. COMPARISON: CR XR chest 1V portable [id number] 02/26/2022 10:45 AM FINDINGS: Lungs: Unremarkable. No consolidation. Pleural spaces: Unremarkable. No pleural effusion. No pneumothorax. Heart/Mediastinum: Unremarkable. No cardiomegaly. Bones/joints: Unremarkable. XR/XR chest 1V portable [id number] IMPRESSION: No acute findings.
--- NOTE | 2022-07-08 18:36 | ED_ITS ---
HPI - Chest Pain General: Chief Complaint: Chest Pain Stated Complaint: chest discomfort Time Seen by Provider: 07/08/22 18:28 Source: patient Mode of arrival: ambulatory Limitations: no limitations History of Present Illness: 62-year-old male who states that he has been having feeling where his heart was beating heavily 30 minutes ago. He states that just he can feel his heartbeat he denies any pain states to improve he states that these intermittent episodes for months now. Denies any shortness of breath. He states he feels slightly lightheaded like he is stone currently. He denies any fever or cough. Associated symptoms: Deny abdominal pain, dyspnea, fever(s), nausea or vomiting Review of Systems Const: Denies: fever(s), chills, body aches or change in appetite Eyes: Denies: blurry vision or eye discomfort ENMT: Denies: throat pain or dental pain Card: Reports: chest pain Resp: Denies: dyspnea GI: Denies: abdominal pain, nausea, vomiting or diarrhea : Denies: dysuria Musc: Denies: neck pain or back pain Skin/Breast: Denies: rash Neuro: Denies: headache(s) Psych: Denies: depression Ke/Lymph: Denies: easy bruising All/Imm: Denies: urticaria PFSH ED PFSH: Medical History Alcohol dependence, uncomplicated Alcohol intoxication Hepatitis B HTN (hypertension) Nicotine dependence, cigarettes, uncomplicated Other stimulant dependence, in remission Psychiatric care Suicidal ideation Social History Smoking and tobacco status: current every day smoker cigarettes Packs smoked per day: 1 Years cigarettes smoked: 30 and e-cigarettes E-Cigarette Details: vaporizer device and with nicotine Quit status (tobacco): not considering quitting Alcohol intake: current Alcohol intake frequency: 3 or more drinks per day Lives independently: Yes Household members: none Marital status: Single service: No History of recent travel: No Physical Exam Const: COMMON NORMALS: no acute distress, patient oriented x3 and healthy appearing HENMT: COMMON NORMALS: normocephalic and atraumatic HEAD & SCALP: n ormocephalic and atraumatic Eye: COMMON NORMALS: Equal, round and reactive pupils present and EOMs intact bilaterally PUPIL: Yes Equal, round and reactive pupils present Neck/C-Spine: COMMON NORMALS: full ROM and supple Chest: COMMONS NORMALS: normal inspection of the chest and normal palpation of entire chest wall Resp: COMMON NORMALS: normal respiratory effort, No retractions, No use of accessory muscles and clear to auscultation bilaterally AUSCULTATION: clear to auscultation bilaterally Cardio: COMMON NORMALS: regular rate, regular rhythm and No murmurs present (Cardio) RATE: regular rate RHYTHM: regular rhythm GI: COMMON NORMALS: Normal to inspection, nondistended, normoactive bowel sounds present, Soft to palpation, non-tender and no masses PALPATION: Yes Soft to palpation Extremity: COMMON NORMALS: normal to inspection and full ROM Neuro: COMMON NORMALS: patient oriented x3, moves all extremities and no focal motor deficits Psych: COMMON NORMALS: mental status grossly normal, Normal thought process present and cooperative THOUGHT PROCESS: Normal thought process present Skin: COMMON NORMALS: no rashes or lesions noted and no wounds GENERAL SKIN EXAM: no rashes or lesions noted Course Vital Signs: Vital signs: Vital Signs Temperature 98.0 F 07/08/22 18:22 Pulse Rate 72 07/08/22 19:33 Respiratory Rate 18 07/08/22 19:33 Blood Pressure 121/70 07/08/22 19:33 Pulse Oximetry 96 07/08/22 19:33 Oxygen Delivery Me thod 07/08/22 19:33 MDM - Chest Pain Medical Decision Making Patient presents for chest pain is atypical in nature he is well-appearing here initial and repeat troponin are normal he is stable for discharge he is to follow-up with PCP and return if worsening he understands agrees to plan. Lab Data : 07/08/22 18:48 07/08/22 18:48 Radiology Impressions Chest X-Ray 07/08/22 18:28 IMPRESSION: No acute findings. Laboratory Results WBC 6.9 10^3/uL (4.0-10.0) 07/08/22 18:48 RBC 4.88 10^6/uL (4.1-5.3) 07/08/22 18:48 Hgb 14.4 g/dL (11.7-16.6) 07/08/22 18:48 Hct 44.3 % (42.0-52.0) 07/08/22 18:48 MCV 90.8 fl (80-94) 07/08/22 18:48 MCH 29.5 pg (28.0-34.0) 07/08/22 18:48 MCHC 32.5 g/dL (30.0-36.0) 07/08/22 18:48 RDW 14.7 % (12.1-15.1) 07/08/22 18:48 Plt Count 235 10^3/cmm (130-400) 07/08/22 18:48 MPV 10.2 fL (7.4-10.4) 07/08/22 18:48 Neut % (Auto) 51.3 % 07/08/22 18:48 Lymph % (Auto) 35.1 % 07/08/22 18:48 Owen % (Auto) 10.9 % 07/08/22 18:48 Eos % (Auto) 1.9 % 07/08/22 18:48 Baso % (Auto) 0.7 % 07/08/22 18:48 Neut # (Auto) 3.52 10^3/uL (1.8-7.7) 07/08/22 18:48 Lymph # (Auto) 2.4 10^3/uL (0.8-4.8) 07/08/22 18:48 Owen # (Auto) 0.8 10^3/uL (0.2-0.9) 07/08/22 18:48 Eos # (Auto) 0.1 10^3/uL (0.0-0.8) 07/08/22 18:48 Baso # (Auto) 0.1 10^3/uL (0.0-0.1) 07/08/22 18:48 Nucleated RBC % (auto) 0 % 07/08/22 18:48 Nucleated RBCs # 0.0 /100WBC 07/08/22 18:48 Sodium 136 mmol/L (136-145) 07/08/22 18:48 Potassium 3.5 mmol/L (3.5-5.1) 07/08/22 18:48 Chloride 102 mmol/L (98-107) 07/08/22 18:48 Carbon Dioxide 20 mmol/L (22-29) L 07/08/22 18:48 Anion Gap 17.5 (5-19) 07/08/22 18:48 BUN 13 mg/dL (8-23) 07/08/22 18:48 Creatinine 0.8 mg/dL (0.7-1.2) 07/08/22 18:48 GFR Calculation 97.6 mL/min (90-130) 07/08/22 18:48 Glucose 84 mg/dL (65-115) 07/08/22 18:48 POC Glucose 87 mg/dL (70-110) 07/08/22 18:48 Calculated Osmolality 281 mOsm/kg (285-295) L 07/08/22 18:48 Calcium 8.7 mg/dL (8.5-10.5) 07/08/22 18:48 Total Bilirubin 0.4 mg/dL (0.15-1.2) 07/08/22 18:48 AST 23 U/L (0-40) 07/08/22 18:48 ALT 27 U/L (0-41) 07/08/22 18:48 Alkaline Phosphatase 75 U/L (40-130) 07/08/22 18:48 Troponin T Baseline 7 ng/L (0-15) 07/08/22 18:28 Troponin T 120 Minute 7.13 ng/L (0-15) 07/08/22 20:19 Total Protein 6.8 g/dL (6.6-8.7) 07/08/22 18:48 Albumin 3.8 g/dL (3.5-5.2) 07/08/22 18:48 Globulin 3.0 g/dL (1.3-4.6) 07/08/22 18:48 EKG Data EKG 1: I personally reviewed and interpreted this EKG as follows: EKG interpretation date: 07/08/22 EKG interpretation time: 18:20 Interpretation: nsr hr [address] or t wave abnormalities qrs 96 qtc 414 EKG 2: I personally reviewed and interpreted this EKG as follows: EKG interpretation date: 07/08/22 EKG interpretation time: 20:16 Interpretation: sinus rosy hr [address] or t wave abnormalities qrs 91 qtc 465 Discharge Plan Discharge Patient Disposition: Home Clinical Impression: Chest pain Condition: Stable Prescriptions: No Action fluticasone propionate [Flonase Allergy Relief] 50 mcg/actuation spray,annie pension 1 spray intranasal BID Qty: 16 0RF Rx Instructions: administer into each nostril two times a day. cetirizine [All Day Allergy (cetirizine)] 10 mg tablet 10 mg PO DAILY PRN (Reason: allergy symptoms) Qty: 30 2RF amitriptyline 25 mg tablet 25 mg PO DAILY Qty: 30 2RF citalopram [Celexa] 40 mg tablet 40 mg PO DAILY Qty: 30 1RF Vitamin B-1 (mononitrate) 100 mg tablet 100 mg PO DAILY 30 Days Qty: 30 1RF hydroxyzine pamoate 50 mg capsule 50 mg PO TID PRN (Reason: Anxiety) 30 Days Qty: 90 1RF amlodipine 10 mg tablet 10 mg PO DAILY lisinopril-hydrochlorothiazide 20-25 mg tablet 1 tab PO DAILY albuterol sulfate 90 mcg/actuation HFA aerosol inhaler 2 inh inhalation Q6H PRN (Reason: shortness of breath or wheezing) Qty: 8.5 0RF Discharge Orders: Discharge ED (Routine); Ordered 07/08/22 Ordered By: Graciela Herrera Discharge Diet: Advance as tolerated Discharge Activity: Resume usual activity Patient Instructions: Chest Pain (ED) Coding Level of Care Code ED Sales Lead Generator for Ramonita Fwd Exam Comprehensive
[2022-07-08 18:51] LABS: Glucose Point of Care 87 mg/dL (70-110)
[2022-07-08 18:54] VITALS: BP 122/76; PULSE 75; RESP 20; O2SAT 96
--- NOTE | 2022-07-08 19:04 | PC.NURSE ---
Report given to NIDA Mcdowell
[2022-07-08 19:11] LABS: Troponin(5th) Baseline 7 ng/L (0-15)
--- NOTE | 2022-07-08 19:32 | PC.NURSE ---
Report from NIDA coleman. Pt sitting in bed in NAD. 18G IV to R FA. NO needs at this time.
[2022-07-08 19:33] VITALS: BP 121/70; PULSE 72; RESP 18; O2SAT 96
[2022-07-08 20:05] LABS: Basophils # 0.1 10^3/uL (0.0-0.1); Basophils % 0.7 %; Eosinophils # 0.1 10^3/uL (0.0-0.8); Eosinophils % 1.9 %; Hematocrit 44.3 % (42.0-52.0); Hemoglobin 14.4 g/dL (11.7-16.6); Lymphocytes # 2.4 10^3/uL (0.8-4.8); Lymphocytes % 35.1 %; Mean Corpuscular HGB Conc 32.5 g/dL (30.0-36.0); Mean Corpuscular Hemoglobin 29.5 pg (28.0-34.0); Mean Corpuscular Volume 90.8 fl (80-94); Mean Platelet Volume 10.2 fL (7.4-10.4); Monocytes # 0.8 10^3/uL (0.2-0.9); Monocytes % 10.9 %; Neutrophils # 3.52 10^3/uL (1.8-7.7); Neutrophils % 51.3 %; Nucleated Red Blood Cells % 0 %; Platelet Count 235 10^3/cmm (130-400); Red Blood Count 4.88 10^6/uL (4.1-5.3); Red Cell Distribution Width 14.7 % (12.1-15.1); White Blood Count 6.9 10^3/uL (4.0-10.0)
--- NOTE | 2022-07-08 20:18 | ECG_ITS ---
[facility] Test Date: 2022-07-08 Pat Name: Marcos Lazar Department: Room: Gender: Male Patient Care Assistant: : 1960 Requested By: Graciela Herrera Order Number: [id number] Kavon MD: Lucian Reardon M.D. Measurements Intervals Harmony Rate: 54 P: 67 OK: 183 QRS: 11 QRSD: 91 T: 63 QT: 479 QTc: 456 Interpretive Statements SINUS BRADYCARDIA POSSIBLE LEFT ATRIAL ENLARGEMENT [-0.1mV P-WAVE IN V1/V2] PROLONGED QT INTERVAL Compared to ECG 07/08/2022 18:20:40 Prolonged QT interval now present Sinus rhythm no longer present Electronically Signed On 07-10-2022 9:26:27 CDT by Lucian Reardon M.D. [email or web address] [email or web address] system [id number]
[2022-07-08 20:26] LABS: Alanine Aminotransferase 27 U/L (0-41); Albumin Level 3.8 g/dL (3.5-5.2); Alkaline Phosphatase 75 U/L (40-130); Anion Gap 17.5 (5-19); Aspartate Amino Transferase 23 U/L (0-40); Blood Urea Nitrogen 13 mg/dL (8-23); Calcium 8.7 mg/dL (8.5-10.5); Carbon Dioxide 20 mmol/L (22-29); Chloride 102 mmol/L (98-107); Creatinine Clr Calc Pharmacy 112.9852; Glomerular Filtration Rate 97.6 mL/min (90-130); Glucose 84 mg/dL (65-115); Osmolality Calculated 281 mOsm/kg (285-295); Potassium 3.5 mmol/L (3.5-5.1); Sodium 136 mmol/L (136-145); Total Bilirubin 0.4 mg/dL (0.15-1.2); Total Protein 6.8 g/dL (6.6-8.7)
[2022-07-08 20:53] LABS: Troponin 5 2HR 7.13 ng/L (0-15)
[2022-07-08 21:15] VITALS: BP 138/83; PULSE 58; RESP 18; O2SAT 97
[2022-07-08 21:39] LABS: Troponin 5 2HR Delta 0.13 ABS# (0-10)
== END 2022-07-08 21:25 | disposition home or self-care (01) ==
PROVIDERS: Emergency Provider Emergency Medicine
DX: R07.9 Chest pain, unspecified (principal); I10 Essential (primary) hypertension; F17.290 Nicotine dependence, other tobacco product, uncomplicated
CPT/HCPCS: 36416; 71045; 80053; 82962; 84484; 85025; 93005; 99285

== ENCOUNTER 2022-07-09 23:42 | Emergency (ER) | payer BC, MEDICAID, SELFPAY ==
[2022-07-09 23:47] VITALS: BP 112/67; PULSE 85; RESP 8; TEMP 36.5; O2SAT 95; BMI 26.9
[2022-07-10 01:05] VITALS: PULSE 82; RESP 14; O2SAT 97
[2022-07-10 01:05] LABS: Basophils # 0.1 10^3/uL (0.0-0.1); Basophils % 0.9 %; Eosinophils # 0.1 10^3/uL (0.0-0.8); Eosinophils % 2.1 %; Hematocrit 41.3 % (42.0-52.0); Hemoglobin 13.8 g/dL (11.7-16.6); Lymphocytes # 1.9 10^3/uL (0.8-4.8); Lymphocytes % 33.5 %; Mean Corpuscular HGB Conc 33.4 g/dL (30.0-36.0); Mean Corpuscular Hemoglobin 29.4 pg (28.0-34.0); Mean Corpuscular Volume 88.1 fl (80-94); Mean Platelet Volume 9.4 fL (7.4-10.4); Monocytes # 0.4 10^3/uL (0.2-0.9); Monocytes % 7.7 %; Neutrophils # 3.19 10^3/uL (1.8-7.7); Neutrophils % 55.6 %; Nucleated Red Blood Cells % 0 %; Platelet Count 223 10^3/cmm (130-400); Red Blood Count 4.69 10^6/uL (4.1-5.3); Red Cell Distribution Width 14.8 % (12.1-15.1); White Blood Count 5.7 10^3/uL (4.0-10.0)
[2022-07-10 01:23] LABS: Add Urine Microscopic? NO; Charge for UA Resulting for Rev
[2022-07-10 01:31] LABS: Acetaminophen < 5.0 ug/mL (10-30); Alanine Aminotransferase 26 U/L (0-41); Albumin Level 3.6 g/dL (3.5-5.2); Alcohol Level 204 mg/dL (0-10); Alkaline Phosphatase 72 U/L (40-130); Anion Gap 16.5 (5-19); Aspartate Amino Transferase 23 U/L (0-40); Blood Urea Nitrogen 7 mg/dL (8-23); Calcium 8.6 mg/dL (8.5-10.5); Carbon Dioxide 22 mmol/L (22-29); Chloride 112 mmol/L (98-107); Globulin 2.7 g/dL (1.3-4.6); Glomerular Filtration Rate 85.2 mL/min (90-130); Glucose 107 mg/dL (65-115); Osmolality Calculated 302 mOsm/kg (285-295); Potassium 3.5 mmol/L (3.5-5.1); Salicylate 0.5 mg/dL (3-10); Sodium 147 mmol/L (136-145); Total Bilirubin 0.2 mg/dL (0.15-1.2); Total Protein 6.3 g/dL (6.6-8.7)
[2022-07-10 01:34] LABS: Amphetamines Screen Urine Negative (Negative); Barbiturates Screen Urine Negative (Negative); Benzodiazepines Screen Urine Negative (Negative); Cocaine Screen Urine Negative (Negative); Opiate Screen Urine Negative (Negative); PCP Screen Urine Negative (Negative); THC Screen Urine Negative (Negative)
[2022-07-10 01:46] LABS: Bilirubin Urine Neg (Negative); Blood Urine Neg (Negative); Glucose Urine UA Norm (Normal); Ketones Urine Negative (Negative); Leukocyte Esterase Urine Negative (Negative); Nitrate Urine Negative (Negative); Protein Urine Neg (Negative); Urine Appearance Clear (CLEAR); Urine Color Yellow (Yellow); Urobilinogen Urine Norm (Negative); pH Urine 5 (5-7)
--- NOTE | 2022-07-10 02:04 | W.ED.PSYCHS ---
HPI - Psych General: Chief Complaint: Psychiatric Symptoms Stated Complaint: ETOH Time Seen by Provider: 07/10/22 00:11 Source: patient History of Present Illness: 62-year-old alcoholic who states he has had 1.5 pints of whiskey in the last 12 hours or so. He states that he needs help. He has made homicidal statements in the last couple of hours. He denies a specific plan to hurt himself or anyone else. complaint: other Onset (ago): hour(s) Duration: constant History of same: Yes Relieving factors: none Exacerbating factors: none Context: recent alcohol abuse Associated psychiatric symptoms: depression, suicidal ideation and homicidal ideation Associated symptoms: Reports depression, homicidal ideation and suicidal ideation; Deny auditory hallucinations or visual hallucinations If self harm: admits thoughts of self harm Review of Systems Const: Denies: fever(s) Eyes: Denies: change in vision ENMT: Denies: throat pain Card: Denies: chest pain Resp: Denies: dyspnea, productive cough or non-productive cough GI: Denies: abdominal pain, nausea, vomiting or hematemesis Psych: Reports: depression, suicidal ideation and homicidal ideation; Denies: visual hallucinations or auditory hallucinations PFS ED PFSH: Medical History Alcohol dependence, uncomplicated Alcohol intoxication Hepatitis B HTN (hypertension) Nicotine dependence, cigarettes, uncomplicated Other stimulant dependence, in remission Psychiatric care Suicidal ideation Social History Smoking and tobacco status: current every day smoker cigarettes Packs smoked per day: 1 Years cigarettes smoked: 30 and e-cigarettes E-Cigarette Details: vaporizer device and with nicotine Quit status (tobacco): not considering quitting Alcohol intake: current Alcohol intake frequency: 3 or more drinks per day Lives independently: Yes Household members: none Marital status: Single service: No History of recent travel: No Physical Exam Const: GENERAL APPEARANCE: cooperative, well kempt and lethargic (Mildly) ORIENTATION/CONSCIOUSNESS: Yes lethargic (Mildly) HENMT: COMMON NORMALS: normocephalic and Normal external nose present HEAD & SCALP: normocephalic FACE & SINUS: normal facial exam and face symmetric NOSE: Normal external nose present Eye: COMMON NORMALS: Equal, round and reactive pupils present and EOMs intact bilaterally PUPIL: Yes Equal, round and reactive pupils present Neck/C-Spine: GENERAL: Yes trachea midline Chest: CHEST: Yes Symmetrical chest wall rise Resp: COMMON NORMALS: normal respiratory effort, No use of accessory muscles and clear to auscultation bilaterally AUSCULTATION: clear to auscultation bilaterally Cardio: COMMON NORMALS: regular rate and regular rhythm RATE: regular rate RHYTHM: regular rhythm GI: COMMON NORMALS: Normal to inspection, nondistended, normoactive bowel sounds present and Soft to palpation PALPATION: Yes Soft to palpation Extremity: COMMON NORMALS: no pedal edema Neuro: DON COMA SCALE: document GCS findings Don coma scale eye opening: To sound Quinton coma scale verbal response: Orientated Quinton coma scale motor response: Obey commands Don coma scale total score: 14 SENSORIUM/ORIENTATION: Yes lethargic (Mildly) Psych: APPEARANCE: Yes well kempt Course Vital Signs: Vital signs: Vital Signs Temperature 97.7 F 07/09/22 23:47 Pulse Rate 75 07/10/22 06:00 Respiratory Rate 16 07/10/22 06:00 Blood Pressure 116/84 07/10/22 06:00 Pulse Oximetry 96 07/10/22 06:00 Oxygen Delivery Me thod 07/09/22 23:47 MDM - Psych Medical Decision Making [id number]: 62-year-old gentleman who presented intoxicated, and made suicidal and possibly homicidal statement. Currently, he has sobered quite a bit. He now denies any suicidal or homicidal ideation. He has no plan to hurt himself or anyone else. He is remorseful for his behavior. He notes that he simply relapsed, and drank last night. He would like to be able to go back to the rehab facility to continue treatment. Medically, he is quite stable. His labs are benign. He is nontoxic in appearance. Lab Data : 07/10/22 00:55 07/10/22 00:55 Laboratory Results WBC 5.7 10^3/uL (4.0-10.0) 07/10/22 00:55 RBC 4.69 10^6/uL (4.1-5.3) 07/10/22 00:55 Hgb 13.8 g/dL (11.7-16.6) 07/10/22 00:55 Hct 41.3 % (42.0-52.0) L 07/10/22 00:55 MCV 88.1 fl (80-94) 07/10/22 00:55 MCH 29.4 pg (28.0-34.0) 07/10/22 00:55 MCHC 33.4 g/dL (30.0-36.0) 07/10/22 00:55 RDW 14.8 % (12.1-15.1) 07/10/22 00:55 Plt Count 223 10^3/cmm (130-400) 07/10/22 00:55 MPV 9.4 fL (7.4-10.4) 07/10/22 00:55 Neut % (Auto) 55.6 % 07/10/22 00:55 Lymph % (Auto) 33.5 % 07/10/22 00:55 Dolores % (Auto) 7.7 % 07/10/22 00:55 Eos % (Auto) 2.1 % 07/10/22 00:55 Baso % (Auto) 0.9 % 07/10/22 00:55 Neut # (Auto) 3.19 10^3/uL (1.8-7.7) 07/10/22 00:55 Lymph # (Auto) 1.9 10^3/uL (0.8-4.8) 07/10/22 00:55 Dolores # (Auto) 0.4 10^3/uL (0.2-0.9) 07/10/22 00:55 Eos # (Auto) 0.1 10^3/uL (0.0-0.8) 07/10/22 00:55 Baso # (Auto) 0.1 10^3/uL (0.0-0.1) 07/10/22 00:55 Nucleated RBC % (auto) 0 % 07/10/22 00:55 Nucleated RBCs # 0.0 /100WBC 07/10/22 00:55 Sodium 147 mmol/L (136-145) H 07/10/22 00:55 Potassium 3.5 mmol/L (3.5-5.1) 07/10/22 00:55 Chloride 112 mmol/L (98-107) H 07/10/22 00:55 Carbon Dioxide 22 mmol/L (22-29) 07/10/22 00:55 Anion Gap 16.5 (5-19) 07/10/22 00:55 BUN 7 mg/dL (8-23) L 07/10/22 00:55 Creatinine 0.9 mg/dL (0.7-1.2) 07/10/22 00:55 GFR Calculation 85.2 mL/min (90-130) L 07/10/22 00:55 Glucose 107 mg/dL (65-115) 07/10/22 00:55 Calculated Osmolality 302 mOsm/kg (285-295) H 07/10/22 00:55 Calcium 8.6 mg/dL (8.5-10.5) 07/10/22 00:55 Total Bilirubin 0.2 mg/dL (0.15-1.2) 07/10/22 00:55 AST 23 U/L (0-40) 07/10/22 00:55 ALT 26 U/L (0-41) 07/10/22 00:55 Alkaline Phosphatase 72 U/L (40-130) 07/10/22 00:55 Total Protein 6.3 g/dL (6.6-8.7) L 07/10/22 00:55 Albumin 3.6 g/dL (3.5-5.2) 07/10/22 00:55 Globulin 2.7 g/dL (1.3-4.6) 07/10/22 00:55 Urine Color Yellow (Yellow) 07/10/22 01:18 Urine Appearance Clear (CLEAR) 07/10/22 01:18 Urine pH 5 (5-7) 07/10/22 01:18 Ur Specific Gormania 1.010 (1.005-1.030) 07/10/22 01:18 Urine Protein Neg (Negative) 07/10/22 01:18 Urine Glucose (UA) Norm (Normal) 07/10/22 01:18 Urine Ketones Negative (Negative) 07/10/22 01:18 Urine Blood Neg (Negative) 07/10/22 01:18 Urine Nitrate Negative (Negative) 07/10/22 01:18 Urine Bilirubin Neg (Negative) 07/10/22 01:18 Urine Urobilinogen Norm mg/dL (Negative) 07/10/22 01:18 Ur Leukocyte Esterase Negative (Negative) 07/10/22 01:18 Salicylates 0.5 mg/dL (3-10) L 07/10/22 00:55 Urine Opiates Screen Negative ng/mL (Negative) 07/10/22 01:18 Acetaminophen < 5.0 ug/mL (10-30) L 07/10/22 00:55 Ur Barbiturates Screen Negative ng/mL (Negative) 07/10/22 01:18 Ur Phencyclidine Scrn Negative ng/mL (Negative) 07/10/22 01:18 Ur Amphetamines Screen Negative ng/mL (Negative) 07/10/22 01:18 U Benzodiazepines Scrn Negative ng/mL (Negative) 07/10/22 01:18 Urine Cocaine Screen Negative ng/mL (Negative) 07/10/22 01:18 U Marijuana (THC) Screen Negative ng/mL (Negative) 07/10/22 01:18 Ethyl Alcohol 204 mg/dL (0-10) H 07/10/22 00:55 Discharge Plan Discharge Patient Disposition: Home Clinical Impression: Alcohol intoxication Condition: Stable Prescriptions: No Action fluticasone propionate [Flonase Allergy Relief] 50 mcg/actuation spray,suspension 1 spray intranasal BID Qty: 16 0RF Rx Instructions: administer into each nostril two times a day. cetirizine [All Day Allergy (cetirizine)] 10 mg tablet 10 mg PO DAILY PRN (Reason: allergy symptoms) Qty: 30 2RF amitriptyline 25 mg tablet 25 mg PO DAILY Qty: 30 2RF citalopram [Celexa] 40 mg tablet 40 mg PO DAILY Qty: 30 1RF Vitamin B-1 (mononitrate) 100 mg tablet 100 mg PO DAILY 30 Days Qty: 30 1RF hydroxyzine pamoate 50 mg capsule 50 mg PO TID PRN (Reason: Anxiety) 30 Days Qty: 90 1RF amlodipine 10 mg tablet 10 mg PO DAILY lisinopril-hydrochlorothiazide 20-25 mg tablet 1 tab PO DAILY albuterol sulfate 90 mcg/actuation HFA aerosol inhaler 2 inh inhalation Q6H PRN (Reason: shortness of breath or wheezing) Qty: 8.5 0RF Discharge Orders: Discharge ED (Routine); Ordered 07/10/22 Ordered By: Mateusz Rodriguez Patient Instructions: Alcohol Intoxication (ED) Activity Restrictions/Additional Instructions: Return for any thoughts or wishes to harm your self or anyone else. Coding Level of Care Code ED Welfare Officer for Chg Fwd Exam Comprehensive
[2022-07-10 04:00] VITALS: BP 124/89; PULSE 72; RESP 14; O2SAT 98
[2022-07-10 06:00] VITALS: BP 116/84; PULSE 75; RESP 16; O2SAT 96
== END 2022-07-10 07:48 | disposition home or self-care (01) ==
PROVIDERS: Emergency Provider Emergency Medicine
DX: F10.129 Alcohol abuse with intoxication, unspecified (principal); Y90.7 Blood alcohol level of 200-239 mg/100 ml; I10 Essential (primary) hypertension; F17.210 Nicotine dependence, cigarettes, uncomplicated; Z86.19 Personal history of other infectious and parasitic diseases
CPT/HCPCS: 80053; 80306; 80307; 81003; 85025; 99284

== ENCOUNTER 2022-07-14 13:55 | Outpatient (CLI) | payer BC, MEDICAID, SELFPAY ==
--- NOTE | 2022-07-14 14:15 | CT_ITS ---
WS: [id number] CT ABDOMEN AND PELVIS WITH CONTRAST HISTORY: Constipation, abdominal mass TECHNIQUE: Imaging performed of the abdomen and pelvis with IV contrast. Single phase imaging of the abdomen. Coronal and sagittal reformats are submitted. All CT scans at [facility] use at [address] one of these dose optimization techniques: automated exposure control; mA and/or kV adjustment per patient size (includes targeted exams where dose is matched to clinical indication); or iterative re construction. IV CONTRAST: Omnipaque 350; 95 mL IV. Oral contrast: Yes. DLP: 1140.77 mGy.cm COMPARISON: None available. Lower thorax: Lung bases are clear. Heart is normal size. No hiatal hernia. Liver/biliary system: Normal size liver. There are several low-attenuation lesions within the liver. The largest in the LEFT lobe measures 8 mm. These are too small to characterize. Normal portal vein. Gallbladder: Normal. No gallstones or wall thickening. No pericholecystic fluid. Pancreas: Normal size pancreas and pancreatic duct. No adjacent inflammation. Spleen: Normal size spleen. No mass or infarct. Adrenal glands: Normal. Right kidney: Normal. Left kidney: Normal size kidney. There are cortical hypodensities which are too small to characterize . No solid mass. No obstruction. Aorta: Mild atherosclerosis with no aneurysm. 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 T he SMA is widely patent. CTA angiogram of the aorta may be worthwhile to further evaluate the extent of stenosis. Lymphadenopathy: Subcentimeter mesenteric lymph nodes. Free fluid: None. GI tract: Normally distended stomach. No small bowel obstruction. No ischemic changes or wall thicken ing. The appendix is normal. No colonic wall edema. There are a few scattered diverticula distally. Abdominal wall: No hernia. Partially calcified mass in the LEFT lower abdominal wall. The central arash cification measures 1.8 cm. The larger lipomatous type mass measures 3.8 cm. Pelvis: No free fluid in the pelvis. Prostate gland is enlarged and heterogeneous encroaching into th e base of the bladder. Prostate extends over length of 5.4 cm and transversely by 4.0 cm. No filling defects or enhancement within the bladder. Bones: Unremarkable. CT/CT abdomen pelvis w con* [id number] IMPRESSION: 1. Possible stenosis involving the celiac axis or median arcuate ligament synd val. Recommend follow-up CT angiogram of aorta with attention to the celiac ax is. This will help better determine if there is a true stenosis. 2. No ischemic changes within the GI tract. 3. Lipomatous mass with central calcification in the LEFT anterior abdominal w all. Appears benign. Calcification may be dystrophic and related to an injectio n site. 4. Several central mesenteric lymph nodes measure less than a centimeter. 5. Prostate enlargement.
[2022-07-14] MEDS: iohexol 300 mg/mL 50 mL Btl PO (15:27)
[2022-07-14] MEDS: iohexol 350 mg/mL 100 mL Btl IV (15:27)
== END 2022-07-14 13:56 | disposition home or self-care (01) ==
PROVIDERS: Visit Provider Family Medicine
DX: R19.04 Left lower quadrant abdominal swelling, mass and lump (principal); K59.00 Constipation, unspecified; R10.2 Pelvic and perineal pain; N40.0 Benign prostatic hyperplasia without lower urinary tract symptoms
CPT/HCPCS: 74177

== ENCOUNTER 2022-08-06 08:47 | Outpatient (CLI) | payer BC, MEDICAID, SELFPAY ==
--- NOTE | 2022-08-06 09:15 | US_ITS ---
WS: [id number] RIGHT UPPER QUADRANT ULTRASOUND HISTORY: History of Hep B, Hep C, EtOH use, Elevated LFT's. COMPARISON: Prior ultrasound 12/13/[address] 07/14/2022 Liver: 14.2 cm in length. Normal size liver. No bile duct dilatation or mass. Portal Vein: Normal hepatopetal flow with monophasic waveform. Gallbladder: Normally distended gallbladder with no stones or wall thickening. CBD: 0.6 cm; top normal size. Pancreas: Normal size and echogenicity. Right kidney: 11.9 cm in length. Normal size and echogenicity. No hydronephrosis or mass. Aorta and IVC: Unremarkable abdominal aorta and IVC. No ascites. US/US liver [id number] IMPRESSION: Normal RIGHT upper quadrant ultrasound.
== END 2022-08-06 08:48 | disposition home or self-care (01) ==
LOC: RAD 08:48
PROVIDERS: PCP Family Medicine; Visit Provider Family Medicine
DX: B19.10 Unspecified viral hepatitis B without hepatic coma (principal); F10.20 Alcohol dependence, uncomplicated; F33.9 Major depressive disorder, recurrent, unspecified; G47.00 Insomnia, unspecified; I10 Essential (primary) hypertension; R79.89 Other specified abnormal findings of blood chemistry; Z86.19 Personal history of other infectious and parasitic diseases
CPT/HCPCS: 76705

== ENCOUNTER → 2022-08-10 10:11 | Outpatient (BNVA) | payer BC, MEDICAID, SELFPAY | PROVIDERS: PCP Family Medicine; Visit Provider Family Medicine Adult Medicine | DX: M79.671 Pain in right foot (principal); M21.969 Unspecified acquired deformity of unspecified lower leg | CPT/HCPCS: 73620; 84550; 85651; 86431 ==

== ENCOUNTER → 2022-09-08 11:17 | Outpatient (BNVA) | payer BC, SELFPAY | PROVIDERS: PCP Family Medicine; Visit Provider Dermatology | DX: F33.9 Major depressive disorder, recurrent, unspecified (principal); F10.20 Alcohol dependence, uncomplicated | CPT/HCPCS: 80061; 83036 ==

== ENCOUNTER 2022-10-31 10:11 | Emergency (ER) | payer BC, MEDICAID, SELFPAY ==
[2022-10-25 10:27] VITALS: BP 134/75; BMI 23.9
[2022-10-31 10:18] VITALS: PULSE 62; RESP 14; O2SAT 97
--- NOTE | 2022-10-31 10:24 | ED_ITS ---
HPI - Alcohol General: Chief Complaint: Alcohol Stated Complaint: PSYCH EVAL Time Seen by Provider: 10/31/22 10:14 Source: patient and EMS Mode of arrival: EMS Limitations: no limitations History of Present Illness: 62-year-old male who is here by EMS he states that he is a chronic alcoholic he states he did drink last night woke up this morning had 2 more beers decided he wants to try to stop drinking he is not suicidal not homicidal he has no other complaints at this time he is ambulatory here. Associated symptoms: Deny abdominal pain, depression, nausea or vomiting Review of Systems Const: Denies: fever(s), chills, body aches or change in appetite Eyes: Denies: blurry vision or eye discomfort ENMT: Denies: throat pain or dental pain Card: Denies: chest pain Resp: Denies: dyspnea GI: Denies: abdominal pain, nausea, vomiting or diarrhea : Denies: dysuria Musc: Denies: neck pain or back pain Skin/Breast: Denies: rash Neuro: Denies: headache(s) Psych: Denies: depression Ke/Lymph: Denies: easy bruising All/Imm: Denies: urticaria PFSH ED PFSH: Medical History Alcohol dependence, uncomplicated Alcohol intoxication Deformity, foot Hepatitis B Hepatitis C antibody test positive HTN (hypertension) Hyperlipidemia Nicotine dependence, cigarettes, uncomplicated Other stimulant dependence, in remission Other stimulant dependence, uncomplicated Psychiatric care Right foot pain Rigidity of first metatarsophalangeal joint of right foot Suicidal ideation Tobacco use disorder Surgical History H/O hernia repair Family History Other Cancer Diabetes Psychiatric illness Social History Smoking and tobacco status: current every day smoker cigarettes Packs smoked per day: 1 Years cigarettes smoked: 57 and e-cigarettes E-Cigarette Details: vaporizer device and with nicotine E-cig/vape details: takes a week to go through a pod Quit status (tobacco): not considering quitting Second hand smoke exposure: Yes Alcohol intake: current Alcohol intake frequency: 3 or more drinks per day Alcohol type: beer Desire information about substance/drug rehabilitation?: No Adopted: No Caregiver/support person: No (working on it) Lives independently: Yes Household members: spouse and none Housing: Apartment Marital status: Single Number of children: 0 Highest education level completed: GED or Equivalent service: No Current occupational status: retired Pets and animals: No History of recent travel: No Leisure activites: other Leisure activities details: walk and ride bike Sexually active: No Current gender identity: Male Amparo/[employer]: [employer] Special amparo needs: No Agree to transfusion: Yes Financial difficulty paying for basics: Not Very Hard Physical Exam Const: COMMON NORMALS: no acute distress, patient oriented x3 and healthy appearing HENMT: COMMON NORMALS: normocephalic and atraumatic HEAD & SCALP: normoc ephalic and atraumatic Eye: COMMON NORMALS: Equal, round and reactive pupils present and EOMs intact bilaterally PUPIL: Yes Equal, round and reactive pupils present Neck/C-Spine: COMMON NORMALS: full ROM and supple Chest: COMMONS NORMALS: normal inspection of the chest and normal palpation of entire chest wall Resp: COMMON NORMALS: normal respiratory effort, No retractions, No use of accessory muscles and clear to auscultation bilaterally AUSCULTATION: clear to auscultation bilaterally Cardio: COMMON NORMALS: regular rate, regular rhythm and No murmurs present (Cardio) RATE: regular rate RHYTHM: regular rhythm GI: COMMON NORMALS: Normal to inspection, nondistended, normoactive bowel sounds present, Soft to palpation, non-tender and no masses PALPATION: Yes Soft to palpation Extremity: COMMON NORMALS: normal to inspection and full ROM Neuro: COMMON NORMALS: patient oriented x3, moves all extremities and no focal motor deficits Psych: COMMON NORMALS: mental status grossly normal, Normal thought process present and cooperative THOUGHT PROCESS: Normal thought process present Skin: COMMON NORMALS: no rashes or lesions noted and no wounds GENERAL SKIN EXAM: no rashes or lesions noted Course Vital Signs: Vital signs: Vital Signs Pulse Rate 62 10/31/22 10:18 Respiratory Rate 14 10/31/22 10:18 Pulse Oximetry 97 10/31/22 10:18 Oxygen Delivery Me thod 10/31/22 10:18 MDM - Alcohol Medical Decision Making Patient presents with alcohol intoxication he is not suicidal or homicidal he is able ambulate he is clinically sober now for discharge we will get him outpatient resources for alcohol rehab Discharge Plan Discharge Patient Disposition: Home Clinical Impression: Alcohol intoxication Condition: Stable Prescriptions: No Action citalopram [Celexa] 40 mg tablet 40 mg PO DAILY Qty: 30 1RF naltrexone 50 mg tablet 50 mg PO DAILY Qty: 30 1RF hydroxyzine pamoate 50 mg capsule 50 mg PO TID PRN (Reason: Anxiety) 30 Days Qty: 90 1RF gabapentin 100 mg capsule 100 mg PO TID Qty: 270 3RF amitriptyline 25 mg tablet 25 mg PO DAILY Qty: 90 3RF azithromycin 250 mg tablet See Rx Instructions .ROUTE .COMPLEX Qty: 6 0RF Dose Instruction: TAKE 2 TABLETS BY MOUTH ON DAY 1, THEN TAKE 1 TABLET DAILY ON DAYS 2-5 Rx Instructions: TAKE 2 TABLETS BY MOUTH ON DAY 1, THEN TAKE 1 TABLET DAILY ON DAYS 2-5 cetirizine 10 mg tablet 10 mg PO DAILY Qty: 90 3RF meloxicam 15 mg tablet 15 mg PO DAILY Qty: 90 3RF Discharge Orders: Discharge ED (Routine); Ordered 10/31/22 Ordered By: Graciela Herrera Referrals: Emanuel Trejo DO [Primary Care Provider] - 1-3 days Discharge Diet: Advance as tolerated Discharge Activity: Resume usual activity Patient Instructions: Alcohol Intoxication (ED) Coding Level of Care Code ED Internal Audit Senior Manager for Ramonita Lantigua Exam Comprehensive
== END 2022-10-31 10:38 | disposition home or self-care (01) ==
PROVIDERS: Emergency Provider Emergency Medicine; PCP Family Medicine
DX: F10.129 Alcohol abuse with intoxication, unspecified (principal); F17.210 Nicotine dependence, cigarettes, uncomplicated; F17.290 Nicotine dependence, other tobacco product, uncomplicated; Z86.19 Personal history of other infectious and parasitic diseases; I10 Essential (primary) hypertension; E78.5 Hyperlipidemia, unspecified
CPT/HCPCS: 99283

== ENCOUNTER 2022-11-11 14:49 | Emergency (ER) | payer BC, MEDICAID, SELFPAY ==
[2022-10-25 10:27] VITALS: BP 134/75; BMI 23.9
--- NOTE | 2022-11-11 14:59 | XR_ITS ---
WS: [id number] Portable AP upright chest, 11/11/2022 Clinical Data: chest pain Comparison: Portable chest, 07/08/2022 Findings: No nodules, masses or effusions are seen. The heart is normal. The pulmonary vascularity is not increased. No pneumonia or pneumothorax is seen. The aortic arch and descending thoracic aorta s how minimal tortuosity. The diaphragms are flattened. There are orthopedic screws in the left humeral head. XR/XR chest 1V portable [id number] Impression: Atherosclerosis and hyperinflation.
[2022-11-11 15:07] LABS: Basophils # 0.1 10^3/uL (0.0-0.1); Basophils % 1.1 %; Eosinophils # 0.1 10^3/uL (0.0-0.8); Eosinophils % 0.8 %; Hematocrit 44.5 % (42.0-52.0); Hemoglobin 15.2 g/dL (11.7-16.6); Lymphocytes # 1.4 10^3/uL (0.8-4.8); Lymphocytes % 21.6 %; Mean Corpuscular HGB Conc 34.2 g/dL (30.0-36.0); Mean Corpuscular Volume 90.6 fl (80-94); Mean Platelet Volume 9.4 fL (7.4-10.4); Monocytes # 0.8 10^3/uL (0.2-0.9); Monocytes % 12.5 %; Neutrophils # 4.18 10^3/uL (1.8-7.7); Neutrophils % 63.7 %; Nucleated Red Blood Cells % 0 %; Platelet Count 175 10^3/cmm (130-400); Red Blood Count 4.91 10^6/uL (4.1-5.3); White Blood Count 6.6 10^3/uL (4.0-10.0)
[2022-11-11 15:29] LABS: Alanine Aminotransferase 40 U/L (0-41); Albumin Level 4.6 g/dL (3.5-5.2); Alkaline Phosphatase 78 U/L (40-130); Anion Gap 15.8 (5-19); Aspartate Amino Transferase 53 U/L (0-40); Blood Urea Nitrogen 12 mg/dL (8-23); Calcium 8.6 mg/dL (8.5-10.5); Carbon Dioxide 24 mmol/L (22-29); Chloride 101 mmol/L (98-107); Globulin 2.8 g/dL (1.3-4.6); Glomerular Filtration Rate 136.1 mL/min (90-130); Glucose 85 mg/dL (65-115); Osmolality Calculated 283 mOsm/kg (285-295); Potassium 3.8 mmol/L (3.5-5.1); Sodium 137 mmol/L (136-145); Total Bilirubin 1.1 mg/dL (0.15-1.2); Total Protein 7.4 g/dL (6.6-8.7)
[2022-11-11 15:31] LABS: Troponin(5th) Baseline 8 ng/L (0-15)
== END 2022-11-11 16:02 | disposition left against medical advice (07) ==
LOC: ER 15:01
PROVIDERS: Emergency Provider Family Medicine; PCP Family Medicine
DX: Z53.21 Procedure and treatment not carried out due to patient leaving prior to being seen by health care provider (principal)
CPT/HCPCS: 71045; 80053; 84484; 85025

== ENCOUNTER 2022-11-22 10:19 | Emergency (ER) | payer BC, MEDICAID, SELFPAY ==
[2022-10-25 10:27] VITALS: BP 134/75; BMI 23.9
[2022-11-22 10:33] VITALS: BP 132/72; PULSE 61; RESP 14; TEMP 36.3; O2SAT 96; BMI 24.1
--- NOTE | 2022-11-22 10:43 | ED_ITS ---
HPI - Weakness General: Chief complaint: Weakness Stated complaint: WEAKNESS Time Seen by Provider: 11/22/22 10:23 Source: patient Mode of arrival: ambulatory History of Present Illness: 62-year-old male who presents to the emergency room with complaints of generalized weakness for last 3 days. He had been admitted to [facility] in [place] for alcohol withdrawal he was discharged on 1 6 states he is felt little weak since then he feels like it still medication he is taking he has hydroxyzine as well as citalopram and naltrexone. He has not had any vomiting or diarrhea has not had any easy bruising or bleeding he denies any suicidal ideation or thoughts he evidently was talking to a caseworker protective services at [facility] this morning and they advised him to come to the emergency room he states it was because of abnormal liver enzymes and the caseworker protective services called a ambulance for him. There is no one at the bedside to c orroborate any of this to provide any other history. MD Complaint: generalized weakness Duration: constant Location: generalized Severity: mild Relieving factors: none Exacerbating factors: none Associated symptoms: Reports nausea; Denies chest pain, chills, confusion, melena, decreased appetite, diaphoresis, dysuria, easy bruising, fever(s), headache(s), myalgias, rash, short of breath, syncope or vomiting Review of Systems Const: Reports: fatigue and malaise; Denies: fever(s), chills, body aches, change in appetite or diaphoresis ENMT: Denies: throat pain, ear or mastoid pain, nasal discharge or nasal congestion Card: Denies: chest pain, palpitations, irregular heart rhythm or syncope Resp: Denies: dyspnea, productive cough or non-productive cough GI: Reports: nausea; Denies: vomiting or melena : Denies: dysuria, urinary frequency or urinary urgency Skin/Breast: Denies: rash or pruritus Neuro: Denies: headache(s) or confusion Ke/Lymph: Denies: easy bruising PFS ED PFSH: Medical History Alcohol dependence, uncomplicated Alcohol intoxication Deformity, foot Hepatitis B Hepatitis C antibody test positive HTN (hypertension) Hyperlipidemia Nicotine dependence, cigarettes, uncomplicated Other stimulant dependence, in remission Other stimulant dependence, uncomplicated Psychiatric care Right foot pain Rigidity of first metatarsophalangeal joint of right foot Suicidal ideation Tobacco use disorder Surgical History H/O hernia repair Family History Other Cancer Diabetes Psychiatric illness Social History Smoking and tobacco status: current every day smoker cigarettes Packs smoked per day: 1 Years cigarettes smoked: 57 and e-cigarettes E-Cigarette Details: vaporizer device and with nicotine E-cig/vape details: takes a week to go through a pod Quit status (tobacco): not considering quitting Second hand smoke exposure: Yes Alcohol intake: current Alcohol intake frequency: 3 or more drinks per day Alcohol type: beer Desire information about substance/drug rehabilitation?: No Adopted: No Caregiver/support person: No (working on it) Lives independently: Yes Household members: spouse and none Housing: Apartment Marital status: Single Number of children: 0 Highest education level completed: GED or Equivalent service: No Current occupational status: retired Pets and animals: No History of recent travel: No Leisure activites: other Leisure activities details: walk and ride bike Sexually active: No Current gender identity: Male [employer]o/[employer]: [employer] Special amparo needs: No Agree to transfusion: Yes Financial difficulty paying for basics: Not Very Hard Physical Exam Const: GENERAL APPEARANCE: cooperative and comfortable ORIENTATION/CONSCIOUSNESS: Yes awake, Yes oriented to person, Yes oriented to place and Yes oriented to time HENMT: COMMON NORMALS: normocephalic, atraumatic and hearing grossly normal bilaterally HEAD & SCALP: normocephalic and atraumatic Resp: COMMON NORMALS: normal respiratory effort, No retractions, No use of a ccessory muscles and clear to auscultation bilaterally AUSCULTATION: clear to auscultation bilaterally Cardio: COMMON NORMALS: regular rate, regular rhythm and No murmurs present (Cardio) RATE: regular rate RHYTHM: regular rhythm GI: COMMON NORMALS: Soft to palpation and No hepatosplenomegaly present AUSCULTATION: Yes normoactive bowel sounds PALPATION: Yes Soft to palpation, No Tenderness to palpation present (GI), No Guarding due to palpation present (GI) and Yes No hepatosplenomegaly present Extremity: COMMON NORMALS: normal to inspection, capillary refill normal, no clubbing, cyanosis or edema, no calf tenderness and no pedal edema Neuro: SENSORIUM/ORIENTATION: Yes oriented to person, Yes oriented to place and Yes oriented to time Skin: COMMON NORMALS: no rashes or lesions noted GENERAL SKIN EXAM: no rashes or lesions noted Course Vital Signs: Vital signs: Vital Signs Temperature 98.0 F 11/22/22 11:10 Pulse Rate 59 L 11/22/22 12:57 Respiratory Rate 16 11/22/22 12:57 Blood Pressure 143/92 11/22/22 12:57 Pulse Oximetry 98 11/22/22 12:57 Oxygen Delivery Me thod 11/22/22 10:33 MDM - Weakness Medical Decision Making Laboratory tests reviewed. Patient ambulates relatively well he has a little bit of a broad-based gait. Suspect he has some peripheral neuropathy and cerebe llar ataxia from his long alcohol history discussed this with him. There may be some slight improvements to have his referral to physical therapy but often these deficits will be permanent even after someone stops drinking. Follow-up with his primary care they can refer him for evaluation to be done. I think at this point there is no emergent condition he can be safely discharged home Medical Records I reviewed the patient's medical records. Lab Data I reviewed the patient's lab results. 11/22/22 11:21 11/22/22 11:21 Laboratory Results WBC 6.7 10^3/uL (4.0-10.0) 11/22/22 11:21 RBC 4.89 10^6/uL (4.1-5.3) 11/22/22 11:21 Hgb 15.1 g/dL (11.7-16.6) 11/22/22 11:21 Hct 46.5 % (42.0-52.0) 11/22/22 11:21 MCV 95.1 fl (80-94) H 11/22/22 11:21 MCH 30.9 pg (28.0-34.0) 11/22/22 11:21 MCHC 32.5 g/dL (30.0-36.0) 11/22/22 11:21 RDW 13.1 % (12.1-15.1) 11/22/22 11:21 Plt Count 207 10^3/cmm (130-400) 11/22/22 11:21 MPV 9.6 fL (7.4-10.4) 11/22/22 11:21 Neut % (Auto) 65.9 % 11/22/22 11:21 Lymph % (Auto) 22.7 % 11/22/22 11:21 Foster % (Auto) 9.8 % 11/22/22 11:21 Eos % (Auto) 0.7 % 11/22/22 11:21 Baso % (Auto) 0.6 % 11/22/22 11:21 Neut # (Auto) 4.42 10^3/uL (1.8-7.7) 11/22/22 11:21 Lymph # (Auto) 1.5 10^3/uL (0.8-4.8) 11/22/22 11:21 Foster # (Auto) 0.7 10^3/uL (0.2-0.9) 11/22/22 11:21 Eos # (Auto) 0.1 10^3/uL (0.0-0.8) 11/22/22 11:21 Baso # (Auto) 0.0 10^3/uL (0.0-0.1) 11/22/22 11:21 Nucleated RBC % (auto) 0 % 11/22/22 11:21 Nucleated RBCs # 0.0 /100WBC 11/22/22 11:21 Sodium 139 mmol/L (136-145) 11/22/22 11:21 Potassium 3.9 mmol/L (3.5-5.1) 11/22/22 11:21 Chloride 104 mmol/L (98-107) 11/22/22 11:21 Carbon Dioxide 25 mmol/L (22-29) 11/22/22 11:21 Anion Gap 13.9 (5-19) 11/22/22 11:21 BUN 18 mg/dL (8-23) 11/22/22 11:21 Creatinine 0.8 mg/dL (0.7-1.2) 11/22/22 11:21 GFR Calculation 97.6 mL/min (90-130) 11/22/22 11:21 Glucose 99 mg/dL (65-115) 11/22/22 11:21 Calculated Osmolality 290 mOsm/kg (285-295) 11/22/22 11:21 Calcium 8.5 mg/dL (8.5-10.5) 11/22/22 11:21 Total Bilirubin 0.5 mg/dL (0.15-1.2) 11/22/22 11:21 AST 49 U/L (0-40) H 11/22/22 11:21 ALT 63 U/L (0-41) H 11/22/22 11:21 Alkaline Phosphatase 75 U/L (40-130) 11/22/22 11:21 Total Protein 7.0 g/dL (6.6-8.7) 11/22/22 11:21 Albumin 4.1 g/dL (3.5-5.2) 11/22/22 11:21 Globulin 2.9 g/dL (1.3-4.6) 11/22/22 11:21 Lipase 28 U/L (13-60) 11/22/22 11:21 Urine Color Yellow (Yellow) 11/22/22 11:23 Urine Appearance Clear (CLEAR) 11/22/22 11:23 Urine pH 6.5 (5-7) 11/22/22 11:23 Ur Specific [place] 1.005 (1.005-1.030) 11/22/22 11:23 Urine Protein Neg (Negative) 11/22/22 11:23 Urine Glucose (UA) Norm (Normal) 11/22/22 11:23 Urine Ketones Negative (Negative) 11/22/22 11:23 Urine Blood Neg (Negative) 11/22/22 11:23 Urine Nitrate Negative (Negative) 11/22/22 11:23 Urine Bilirubin Neg (Negative) 11/22/22 11:23 Urine Urobilinogen Neg mg/dL (Negative) 11/22/22 11:23 Ur Leukocyte Esterase Negative (Negative) 11/22/22 11:23 Ethyl Alcohol < 10 mg/dL (0-10) 11/22/22 11:21 Discharge Plan Discharge Patient Disposition: Home Clinical Impression: History of alcoholism, Alcoholic peripheral neuropathy, Cerebellar ataxia Condition: Stable Prescriptions: No Action citalopram [Celexa] 40 mg tablet 40 mg PO DAILY Qty: 30 1RF naltrexone 50 mg tablet 50 mg PO DAILY Qty: 30 1RF hydroxyzine pamoate 50 mg capsule 50 mg PO TID PRN (Reason: Anxiety) 30 Days Qty: 90 1RF gabapentin 100 mg capsule 100 mg PO TID Qty: 270 3RF amitriptyline 25 mg tablet 25 mg PO DAILY Qty: 90 3RF azithromycin 250 mg tablet See Rx Instructions .ROUTE .COMPLEX Qty: 6 0RF Dose Instruction: TAKE 2 TABLETS BY MOUTH ON DAY 1, THEN TAKE 1 TABLET DAILY ON DAYS 2-5 Rx Instructions: TAKE 2 TABLETS BY MOUTH ON DAY 1, THEN TAKE 1 TABLET DAILY ON DAYS 2-5 cetirizine 10 mg tablet 10 mg PO DAILY Qty: 90 3RF meloxicam 15 mg tablet 15 mg PO DAILY Qty: 90 3RF Discharge Orders: Discharge ED (Routine); Ordered 11/22/22 Ordered By: Roberto Garcia Referrals: Emanuel Trejo DO [Primary Care Provider] - Discharge Diet: Usual diet Discharge Activity: Resume usual activity Activity Restrictions/Additional Instructions: You were seen today for difficulty walking. The only significant abnormality is a very slight bump in your transaminases which given your history of alcohol use is not surprising. The remainder of your lab work was normal. Suspect due to the length of time you had been using alcohol you may have some cerebellar ataxia and alcoholic peripheral neuropathy which can affect your gait permanently. Would suggest you follow-up with your primary care doctor they may be able to set you up with physical therapy to further evaluate. Coding Level of Care Code ED Grain Unloader Machine for Ramonita Fwbetsey Exam Detailed
[2022-11-22 11:10] VITALS: BP 114/76; PULSE 59; RESP 16; TEMP 36.7; O2SAT 96
--- NOTE | 2022-11-22 11:31 | ECG_ITS ---
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 Measurements Intervals [place] Rate: 58 P: 73 NE: 164 QRS: 41 QRSD: 93 T: 63 QT: 477 QTc: 469 Interpretive Statements SINUS BRADYCARDIA NONSPECIFIC T-WAVE ABNORMALITY PROLONGED QT INTERVAL Compared to ECG 07/08/2022 20:16:48 T-wave abnormality now present Electronically Signed On 11-22-2022 20:29:31 NORMALIZER by Zachary Cheng M.D. [id number]
[2022-11-22 11:33] LABS: Basophils % 0.6 %; Eosinophils # 0.1 10^3/uL (0.0-0.8); Eosinophils % 0.7 %; Hematocrit 46.5 % (42.0-52.0); Hemoglobin 15.1 g/dL (11.7-16.6); Lymphocytes # 1.5 10^3/uL (0.8-4.8); Lymphocytes % 22.7 %; Mean Corpuscular HGB Conc 32.5 g/dL (30.0-36.0); Mean Corpuscular Hemoglobin 30.9 pg (28.0-34.0); Mean Corpuscular Volume 95.1 fl (80-94); Mean Platelet Volume 9.6 fL (7.4-10.4); Monocytes # 0.7 10^3/uL (0.2-0.9); Monocytes % 9.8 %; Neutrophils # 4.42 10^3/uL (1.8-7.7); Neutrophils % 65.9 %; Nucleated Red Blood Cells % 0 %; Platelet Count 207 10^3/cmm (130-400); Red Blood Count 4.89 10^6/uL (4.1-5.3); Red Cell Distribution Width 13.1 % (12.1-15.1); White Blood Count 6.7 10^3/uL (4.0-10.0)
[2022-11-22 11:53] LABS: Alanine Aminotransferase 63 U/L (0-41); Albumin Level 4.1 g/dL (3.5-5.2); Alcohol Level < 10 mg/dL (0-10); Alkaline Phosphatase 75 U/L (40-130); Anion Gap 13.9 (5-19); Aspartate Amino Transferase 49 U/L (0-40); Blood Urea Nitrogen 18 mg/dL (8-23); Calcium 8.5 mg/dL (8.5-10.5); Carbon Dioxide 25 mmol/L (22-29); Chloride 104 mmol/L (98-107); Globulin 2.9 g/dL (1.3-4.6); Glomerular Filtration Rate 97.6 mL/min (90-130); Glucose 99 mg/dL (65-115); Lipase 28 U/L (13-60); Osmolality Calculated 290 mOsm/kg (285-295); Potassium 3.9 mmol/L (3.5-5.1); Sodium 139 mmol/L (136-145); Total Bilirubin 0.5 mg/dL (0.15-1.2)
[2022-11-22 12:08] LABS: Add Urine Microscopic? NO; Charge for UA Resulting for Rev
[2022-11-22 12:19] LABS: Bilirubin Urine Neg (Negative); Blood Urine Neg (Negative); Glucose Urine UA Norm (Normal); Ketones Urine Negative (Negative); Leukocyte Esterase Urine Negative (Negative); Nitrate Urine Negative (Negative); Protein Urine Neg (Negative); Specific Gravity, Urine 1.005 (1.005-1.030); Urine Appearance Clear (CLEAR); Urine Color Yellow (Yellow); Urobilinogen Urine Neg (Negative); pH Urine 6.5 (5-7)
[2022-11-22 12:57] VITALS: BP 143/92; PULSE 59; RESP 16; O2SAT 98
== END 2022-11-22 12:59 | disposition home or self-care (01) ==
PROVIDERS: Emergency Provider Family Medicine; PCP Family Medicine
DX: G11.9 Hereditary ataxia, unspecified (principal); G62.1 Alcoholic polyneuropathy; Z86.19 Personal history of other infectious and parasitic diseases; I10 Essential (primary) hypertension; E78.5 Hyperlipidemia, unspecified; F17.210 Nicotine dependence, cigarettes, uncomplicated; F17.290 Nicotine dependence, other tobacco product, uncomplicated
CPT/HCPCS: 80053; 80307; 81003; 83690; 85025; 93005; 99284

== ENCOUNTER → 2023-01-26 15:43 | Outpatient (BNVA) | payer BC, SELFPAY ==
[2023-01-10 09:59] VITALS: BP 134/75; BMI 23.9
== END ==
PROVIDERS: PCP Family Medicine; Visit Provider Nurse Practitioner Psychiatric/Mental Health
DX: F33.9 Major depressive disorder, recurrent, unspecified (principal); G47.00 Insomnia, unspecified; Z79.899 Other long term (current) drug therapy
CPT/HCPCS: 80053; 80307

== ENCOUNTER 2023-02-09 12:56 | Emergency (ER) | payer BC, MEDICAID, SELFPAY ==
[2023-01-10 09:59] VITALS: BP 134/75; BMI 23.9
[2023-02-09 12:59] VITALS: BP 139/87; PULSE 83; RESP 18; TEMP 36.6; O2SAT 100; BMI 23.8
--- NOTE | 2023-02-09 13:05 | USCV_ITS ---
Marcos Lazar Age: 62 Gender: M : 1960 Exam Date: 02/09/2023 13:25 Ordering Phys: Zbigniew Gary DO Technologist: RUDY Exam Location: [facility] [place] Indication: Lower leg/ankle pain HISTORY: Lower extremity pain. PROCEDURES: Venous duplex imaging was performed in only the right lower extremity. The following venous structures were evaluated: common femoral vein, profunda vein, proximal portion of the greater saphenous vein, superficial femoral vein, and the popliteal vein. In addition, the posterior tibial and peroneal trunk were evaluated. Serial compression, augmentation maneuvers, and spectral Doppler flow evaluation were performed. FINDINGS: No evidence of DVT seen in any vessel visualized at this time. CONCLUSIONS No evidence of right lower extremity DVT. Burton Ndiaye MD (Electronically Signed) Final Date: 09 February 2023 16:26 S
--- NOTE | 2023-02-09 14:57 | ED_ITS ---
HPI - Extremity Problem General: Chief complaint: Extremity Problem,Nontraumatic Stated complaint: UC sent for possible blood clot, right leg Time Seen by Provider: 02/09/23 14:30 History of Present Illness: Patient is a 62-year-old male comes to the ED with right lower leg swelling and pain. Symptoms started approximately 2 weeks ago. Denies any injury or trauma. He went and saw [place] [facility] for right leg pain and swelling today and they sent him here to the ED to check for DVT. Denies any chest pain, shortness of breath. Associated symptoms: Deny chest pain, fever(s) or rash Review of Systems Const: Denies: fever(s), chills or fatigue Eyes: Denies: change in vision or eye discomfort ENMT: Denies: throat pain, odynophagia, nasal discharge or nasal congestion Card: Denies: chest pain, palpitations, edema, swelling of feet/ankles, dyspnea on exertion or orthopnea Resp: Denies: dyspnea, productive cough or non-productive cough GI: Denies: abdominal pain, nausea, vomiting, diarrhea, constipation or hematochezia : Denies: flank pain, difficulty urinating, dysuria or hematuria Musc: Reports: extremity pain (Right lower leg) and extremity swelling (Right lower leg); Denies: neck pain or back pain Skin/Breast: Denies: rash or new lesions Neuro: Denies: headache(s), numbness in extremities or weakness in extremities [facility] ED PFSH: Medical History Alcohol use disorder, severe, dependence Deformity, foot Hepatitis B Hepatitis C antibody test positive HTN (hypertension) Hyperlipidemia Major depressive disorder, recurrent, severe with psychotic symptoms Nicotine dependence due to vaping tobacco product Other stimulant dependence, in remission Methamphetamines, last use June 2022 Psychiatric care Right foot pain Rigidity of first metatarsophalangeal joint of right foot Surgical History H/O hernia repair Family History Other Cancer Diabetes Psychiatric illness Social History Smoking and tobacco status: current every day smoker cigarettes Packs smoked per day: 1 Years cigarettes smoked: 57 and e-cigarettes E-Cigarette Details: vaporizer device and with nicotine E-cig/vape details: takes a week to go through a pod Quit status (tobacco): considering quitting Second hand smoke exposure: Yes Alcohol intake: current Alcohol intake frequency: 3 or more drinks per day Alcohol type: beer Desire information about substance/drug rehabilitation?: No Adopted: No Caregiver/support person: No (working on it) Lives independently: Yes Household members: spouse and none Housing: Apartment Marital status: Single Number of children: 0 Highest education level completed: GED or Equivalent service: No Current occupational status: retired Pets and animals: No Leisure activites: other Leisure activities details: walk and ride bike Sexually active: No Current gender identity: Male Amparo/Sabianism: Denominational of [place] Special amparo needs: No Agree to transfusion: Yes Financial difficulty paying for basics: Not Very Hard Physical Exam Const: COMMON NORMALS: patient oriented x3 and alert GENERAL APPEARANCE: cooperative HENMT: COMMON NORMALS: normocephalic HEAD & SCALP: normocephalic MOUTH: Normal oral and palatal mucosa present THROAT: posterior oropharynx normal and uvula midline Neck/C-Spine: COMMON NORMALS: supple GENERAL: Yes normal visual inspection Resp: COMMON NORMALS: normal respiratory effort, No retractions, No use of accessory muscles and clear to auscultation bilaterally AUSCULTATION: clear to auscultation bilaterally Cardio: COMMON NORMALS: regular rate, regular rhythm, S1 normal heart sound present, S2 normal heart sound present, No gallops present (Cardio), No clicks present (Cardio), No murmurs present (Cardio) and Peripheral pulses 2+ throughout RATE: regular rate RHYTHM: regular rhythm HEART SOUNDS: S1 normal heart sound present and S2 normal heart sound present PERIPHERAL PULSES: Peripheral pulses 2+ throughout GI: COMMON NORMALS: Normal to inspection, nondistended, normoactive bowel sounds present, Soft to palpation, non-tender and no masses PALPATION: Yes Soft to palpation : COMMON NORMALS: Yes no CVA tenderness BLADDER/KIDNEY EXAM: Yes no CVA tenderness Back/Pelvis: COMMON NORMALS: no CVA tenderness Extremity: COMMON NORMALS: normal to inspection NARRATIVE EXTREMITY EXAM: Right lower extremity?tenderness behind the knee. Trace pitting edema. No erythema or warmth noted. Neuro: COMMON NORMALS: patient oriented x3 SENSORIUM/ORIENTATION: Yes alert GAIT: Yes Normal gait present Skin: GENERAL SKIN EXAM: dry skin Course Vital Signs: Vital signs: Vital Signs Temperature 97.8 F 02/09/23 12:59 Pulse Rate 83 02/09/23 12:59 Respiratory Rate 18 02/09/23 12:59 Blood Pressure 139/87 02/09/23 12:59 Pulse Oximetry 100 02/09/23 12:59 Oxygen Delivery Me thod 02/09/23 12:59 MDM - Extremity (Nontraumatic) Medical Decision Making Patient is a 62-year-old male comes to the ED with right lower leg swelling and pain. Symptoms started approximately 2 weeks ago. Denies any injury or trauma. He went and saw [place] [facility] for right leg pain and swelling today and they sent him here to the ED to check for DVT. Vitals are stable. Right lower extremity?tenderness behind the knee. Trace pitting edema. No erythema or warmth noted. Ultrasound venous duplex of right lower extremity showed no DVTs or clots. Patient diagnosed with pain and swelling of right lower leg and was discharged home. Follow-up with PCP in the next week for reevaluation. Return to ED precautions given. Patient understood and agreed with plan. Discharge Plan Discharge Patient Disposition: Home Clinical Impression: Pain and swelling of right lower leg Condition: Stable Prescriptions: No Action citalopram [Celexa] 20 mg tablet 20 mg PO .morning Qty: 90 1RF Rx Instructions: Take one tablet every morning gabapentin 300 mg capsule 300 mg PO BID Qty: 60 3RF Rx Instructions: Take one capsule in morning and evening amitriptyline 25 mg tablet 25 mg PO BEDTIME Qty: 30 3RF Rx Instructions: Take one tablet at bedtime Discharge Orders: Discharge ED (Routine); Ordered 02/09/23 Ordered By: Chencho Henderson Referrals: Emanuel Trejo DO [Primary Care Provider] - Discharge Diet: Regular Discharge Activity: Increase activity as tolerated Activity Restrictions/Additional Instructions: Follow-up with medical provider as directed. Continue taking all home medications as previously prescribed. Continue wearing compression stockings and elevating right leg to help with symptoms. Take [id number] Tylenol or ibuprofen help with pain. Return to the ER or your medical provider if condition worsens. Please read and understand discharge instructions. Thank you for choosing [facility] for your healthcare needs today. Please realize this is an emergency room and that we are providing you with a medical screening exam and this may not be complete and all inclusive of all the testing and or work up that you may need to determine your ailment or severity of your illness. It is very important that you follow up as instructed or that you return to the Emergency Department should you have concerns or if your condition changes or worsens in any way. Coding Level of Care Code ED Batch And Furnace Manager for Ramonita Lantigua
== END 2023-02-09 15:19 | disposition home or self-care (01) ==
PROVIDERS: Emergency Provider Physician Assistant; PCP Family Medicine
DX: M79.89 Other specified soft tissue disorders (principal); M79.604 Pain in right leg; F17.210 Nicotine dependence, cigarettes, uncomplicated; F17.290 Nicotine dependence, other tobacco product, uncomplicated; Z86.19 Personal history of other infectious and parasitic diseases; I10 Essential (primary) hypertension; E78.5 Hyperlipidemia, unspecified
CPT/HCPCS: 80053; 80307; 93971; 99284

== ENCOUNTER → 2023-02-23 14:33 | Outpatient (BNVA) | payer BC, SELFPAY ==
[2023-01-10 09:59] VITALS: BP 134/75; BMI 23.9
== END ==
PROVIDERS: PCP Family Medicine; Visit Provider Nurse Practitioner Psychiatric/Mental Health
DX: Z79.899 Other long term (current) drug therapy (principal)
CPT/HCPCS: 80053; 80307

== ENCOUNTER → 2023-04-14 15:19 | Outpatient (BNVA) | payer BC, SELFPAY ==
[2023-01-10 09:59] VITALS: BP 134/75; BMI 23.9
== END ==
PROVIDERS: PCP Family Medicine; Visit Provider Nurse Practitioner Psychiatric/Mental Health
DX: Z79.899 Other long term (current) drug therapy (principal)
CPT/HCPCS: 80053; 80307

== ENCOUNTER → 2023-05-13 11:46 | Outpatient (BNVA) | payer BC, SELFPAY ==
[2023-01-10 09:59] VITALS: BP 134/75; BMI 23.9
== END ==
PROVIDERS: PCP Family Medicine; Visit Provider Nurse Practitioner Psychiatric/Mental Health
DX: Z79.899 Other long term (current) drug therapy (principal)
CPT/HCPCS: 80053

== ENCOUNTER → 2023-06-30 15:40 | Outpatient (BNVA) | payer BC, SELFPAY ==
[2023-01-10 09:59] VITALS: BP 134/75; BMI 23.9
== END ==
PROVIDERS: PCP Family Medicine; Visit Provider Nurse Practitioner Psychiatric/Mental Health
DX: Z79.899 Other long term (current) drug therapy (principal)
CPT/HCPCS: 80053; 80307

== ENCOUNTER → 2023-09-01 09:09 | Outpatient (BNVA) | payer OTHER, SELFPAY ==
[2023-08-08 12:51] VITALS: BP 134/75; BMI 23.9
== END ==
PROVIDERS: PCP Family Medicine; Visit Provider Psychiatry & Neurology Neurology
DX: F33.3 Major depressive disorder, recurrent, severe with psychotic symptoms (principal)
CPT/HCPCS: 80061; 83036

== ENCOUNTER 2023-09-06 14:33 | Emergency (ER) | payer BC, MEDICAID, SELFPAY ==
[2023-08-08 12:51] VITALS: BP 134/75; BMI 23.9
--- NOTE | 2023-09-06 14:49 | W.ED.ALCOHOL ---
HPI - Alcohol General: Chief Complaint: Alcohol Stated Complaint: ETOH Time Seen by Provider: 09/06/23 14:34 Source: patient and EMS Mode of arrival: EMS Limitations: no limitations History of Present Illness: 63-year-old male is here with EMS he states he has been drinking today he does have a history of chronic alcoholism. He denies any suicidality or homicidality. He denies any falls denies any injuries he states unsure how much he drank today he is answering my questions here appropriately he does get angry at times here Associated symptoms: Deny abdominal pain, depression, nausea, suicidal ideation or vomiting Review of Systems Const: Denies: fever(s), chills, body aches or change in appetite Eyes: Denies: blurry vision or eye discomfort ENMT: Denies: throat pain or dental pain Card: Denies: chest pain Resp: Denies: dyspnea GI: Denies: abdominal pain, nausea, vomiting or diarrhea Musc: Denies: neck pain or back pain Skin/Breast: Denies: rash Neuro: Denies: headache(s) Psych: Denies: depression, suicidal ideation or homicidal ideation PFSH ED PFSH: Medical History Alcohol use disorder, severe, dependence last alcohol use 06/30/23 Deformity, foot Hepatitis B Hepatitis C antibody test positive HTN (hypertension) Hyperlipidemia Major depressive disorder, recurrent, severe with psychotic symptoms Nicotine dependence due to vaping tobacco product Other stimulant dependence, in remission Methamphetamines, last use June 2022 Psychiatric care Right foot pain Rigidity of first metatarsophalangeal joint of right foot Surgical History H/O hernia repair Family History Other Cancer Diabetes Psychiatric illness Social History Smoking and tobacco/nicotine status: current every day tobacco/nicotine user cigarettes Packs smoked per day: 1 Years cigarettes smoked: 57 and e-cigarettes E-Cigarette Details: vaporizer device and with nicotine E-cig/vape details: takes a week to go through a pod Quit status (tobacco/nicotine): considering quitting Second hand smoke exposure: Yes Alcohol intake: current Alcohol intake frequency: 3 or more drinks per day Alcohol type: beer Substance/Drug Use: former Date of last use: 08/05 Adopted: No Caregiver/support person: No (working on it) Lives independently: Yes Household members: spouse and none Housing: Apartment Marital status: Single Number of children: 0 Highest education level completed: GED or Equivalent service: No Current occupational status: retired Pets and animals: No Leisure activites: other Leisure activities details: walk and ride bike Sexually active: No Do you think of yourself as: Straight/Heterosexual Current gender identity: Male Amparo/Yazidism: Bahai of [place] Special amparo needs: No Agree to transfusion: Yes Physical Exam Const: COMMON NORMALS: patient oriented x3 and healthy appearing GENERAL APPEARANCE: odor of alcohol detected HENMT: COMMON NORMALS: normocephalic and atraumatic HEAD & SCALP: normocephalic and atraumatic Eye: COMMON NORMALS: Equal, round and reactive pupils present and EOMs intact bilaterally PUPIL: Yes Equal, round and reactive pupils present Neck/C-Spine: COMMON NORMALS: full ROM and supple Chest: COMMONS NORMALS: normal inspection of the chest Resp: COMMON NORMALS: normal respiratory effort Cardio: COMMON NORMALS: No murmurs present (Cardio) GI: INSPECTION: Yes normal to inspection Extremity: COMMON NORMALS: normal to inspection and full ROM Neuro: COMMON NORMALS: patient oriented x3, moves all extremities and no focal motor deficits Psych: COMMON NORMALS: mental status grossly normal, Normal thought process present and cooperative THOUGHT PROCESS: Normal thought process present Skin: COMMON NORMALS: no rashes or lesions noted and no wounds GENERAL SKIN EXAM: no rashes or lesions noted Course Vital Signs: Vital signs: Vital Signs Temperature 98.2 F 09/06/23 14:52 Respiratory Rate 18 09/06/23 14:52 Blood Pressure 135/89 09/06/23 14:52 Pulse Oximetry 98 09/06/23 14:52 Oxygen Delivery Me thod Room Air 09/06/23 14:52 MDM - Alcohol Medical Decision Making Patient presents here with alcohol intoxication when he initially arrived. He is being extremely argumentative and yelling at me and the staff. I did observe him here for roughly 2 hours patient is of his right mind he is able to ambulate here without any difficulty he does have medical decision-making capacity patient and wanted to leave he is not suicidal homicidal did discharge him he does have a ride home here. Medical Records I reviewed the patient's medical records. Lab Data I reviewed the patient's lab results. 09/06/23 14:53 09/06/23 14:53 Laboratory Results WBC 7.24 10^3/uL (3.29-11.43) 09/06/23 14:53 RBC 4.98 10^6/uL (3.85-5.65) 09/06/23 14:53 Hgb 15.80 g/dL (11.27-16.99) 09/06/23 14:53 Hct 45.4 % (37-53) 09/06/23 14:53 MCV 91.2 fl (82-101) 09/06/23 14:53 MCH 31.7 pg (27-33) 09/06/23 14:53 MCHC 34.8 g/dL (30-55) 09/06/23 14:53 RDW 12.4 % (12.1-15.1) 09/06/23 14:53 Plt Count 193 10^3/cmm (157-399) 09/06/23 14:53 MPV 9.1 fL (7.4-10.4) 09/06/23 14:53 Neut % (Auto) 56.4 % 09/06/23 14:53 Lymph % (Auto) 31.4 % 09/06/23 14:53 [facility] % (Auto) 9.8 % 09/06/23 14:53 Eos % (Auto) 1.1 % 09/06/23 14:53 Baso % (Auto) 0.7 % 09/06/23 14:53 Neut # (Auto) 4.09 10^3/uL (1.8-7.7) 09/06/23 14:53 Lymph # (Auto) 2.3 10^3/uL (0.8-4.8) 09/06/23 14:53 [facility] # (Auto) 0.7 10^3/uL (0.2-0.9) 09/06/23 14:53 Eos # (Auto) 0.1 10^3/uL (0.0-0.8) 09/06/23 14:53 Baso # (Auto) 0.1 10^3/uL (0.0-0.1) 09/06/23 14:53 Nucleated RBC % (auto) 0 % 09/06/23 14:53 Nucleated RBCs # 0.0 /100WBC 09/06/23 14:53 Sodium 137 mmol/L (136-145) 09/06/23 14:53 Potassium 4.0 mmol/L (3.5-5.1) 09/06/23 14:53 Chloride 104 mmol/L (98-107) 09/06/23 14:53 Carbon Dioxide 24 mmol/L (22-29) 09/06/23 14:53 Anion Gap 13.0 (5-19) 09/06/23 14:53 BUN 21 mg/dL (8-23) 09/06/23 14:53 Creatinine 1.1 mg/dL (0.7-1.2) 09/06/23 14:53 GFR Calculation 67.4 mL/min (90-130) L 09/06/23 14:53 Glucose 86 mg/dL (65-115) 09/06/23 14:53 Calculated Osmolality 286 mOsm/kg (285-295) 09/06/23 14:53 Calcium 9.0 mg/dL (8.5-10.5) 09/06/23 14:53 Total Bilirubin 0.4 mg/dL (0.15-1.2) 09/06/23 14:53 AST 36 U/L (0-40) 09/06/23 14:53 ALT 57 U/L (0-41) H 09/06/23 14:53 Alkaline Phosphatase 68 U/L (40-130) 09/06/23 14:53 Total Protein 7.1 g/dL (6.6-8.7) 09/06/23 14:53 Albumin 4.2 g/dL (3.5-5.2) 09/06/23 14:53 Globulin 2.9 g/dL (1.3-4.6) 09/06/23 14:53 Salicylates 1.2 mg/dL (3-10) L 09/06/23 14:53 Acetaminophen < 5.0 ug/mL (10-30) L 09/06/23 14:53 Ethyl Alcohol 219 mg/dL (0-10) H 09/06/23 14:53 No radiology studies performed this visit Discharge Plan Discharge Patient Disposition: Home Clinical Impression: Alcoholic intoxication Condition: Stable Prescriptions: No Action Vivitrol 380 mg suspension,extended rel recon 380 mg IM .Q30 days Qty: 1 6RF Rx Instructions: Injection every 30 days citalopram [Celexa] 20 mg tablet 20 mg PO .morning Qty: 90 2RF Rx Instructions: Take one tablet every morning acamprosate 333 mg tablet,delayed release (DR/EC) 666 mg PO TID Qty: 180 3RF Rx Instructions: Take two tablets three times per day, may administer with meals amitriptyline 25 mg tablet 25 mg PO BEDTIME Qty: 30 3RF Rx Instructions: Take one tablet at bedtime naltrexone 50 mg tablet 50 mg PO DAILY PRN (Reason: alcohol cravings/withdrawal) Qty: 30 3RF Rx Instructions: May take one tablet daily as needed for alcohol cravings/withdrawal ibuprofen 800 mg tablet See Rx Instructions .ROUTE .COMPLEX Qty: 30 2RF Dose Instruction: TAKE ONE TABLET BY MOUTH EVERY 8 HOURS NEEDED FOR PAIN Rx Instructions: TAKE ONE TABLET BY MOUTH EVERY 8 HOURS NEEDED FOR PAIN Discharge Orders: Discharge ED (Routine); Ordered 09/06/23 Ordered By: Gracilea Herrera Referrals: Emanuel Trejo DO [Primary Care Provider] - 1-3 days Discharge Diet: Advance as tolerated Discharge Activity: Resume usual activity Patient Instructions: Alcohol Intoxication (ED) Coding Level of Care Code ED Doughnut Maker for Ramonita Lantigua
[2023-09-06 14:52] VITALS: BP 135/89; RESP 18; TEMP 36.8; O2SAT 98
[2023-09-06 14:58] LABS: Basophils # 0.1 10^3/uL (0.0-0.1); Basophils % 0.7 %; Eosinophils # 0.1 10^3/uL (0.0-0.8); Eosinophils % 1.1 %; Hematocrit 45.4 % (37-53); Lymphocytes # 2.3 10^3/uL (0.8-4.8); Lymphocytes % 31.4 %; Mean Corpuscular HGB Conc 34.8 g/dL (30-55); Mean Corpuscular Hemoglobin 31.7 pg (27-33); Mean Corpuscular Volume 91.2 fl (82-101); Mean Platelet Volume 9.1 fL (7.4-10.4); Monocytes # 0.7 10^3/uL (0.2-0.9); Monocytes % 9.8 %; Neutrophils # 4.09 10^3/uL (1.8-7.7); Neutrophils % 56.4 %; Nucleated Red Blood Cells % 0 %; Platelet Count 193 10^3/cmm (157-399); Red Blood Count 4.98 10^6/uL (3.85-5.65); Red Cell Distribution Width 12.4 % (12.1-15.1); White Blood Count 7.24 10^3/uL (3.29-11.43)
[2023-09-06 15:28] LABS: Alanine Aminotransferase 57 U/L (0-41); Albumin Level 4.2 g/dL (3.5-5.2); Alcohol Level 219 mg/dL (0-10); Alkaline Phosphatase 68 U/L (40-130); Aspartate Amino Transferase 36 U/L (0-40); Blood Urea Nitrogen 21 mg/dL (8-23); Carbon Dioxide 24 mmol/L (22-29); Chloride 104 mmol/L (98-107); Globulin 2.9 g/dL (1.3-4.6); Glomerular Filtration Rate 67.4 mL/min (90-130); Glucose 86 mg/dL (65-115); Osmolality Calculated 286 mOsm/kg (285-295); Salicylate 1.2 mg/dL (3-10); Sodium 137 mmol/L (136-145); Total Bilirubin 0.4 mg/dL (0.15-1.2); Total Protein 7.1 g/dL (6.6-8.7)
[2023-09-06 15:31] LABS: Acetaminophen < 5.0 ug/mL (10-30)
== END 2023-09-06 16:01 | disposition home or self-care (01) ==
PROVIDERS: Emergency Provider Emergency Medicine; PCP Family Medicine
DX: F10.129 Alcohol abuse with intoxication, unspecified (principal); Y90.7 Blood alcohol level of 200-239 mg/100 ml; F17.210 Nicotine dependence, cigarettes, uncomplicated; F17.290 Nicotine dependence, other tobacco product, uncomplicated; Z86.19 Personal history of other infectious and parasitic diseases; I10 Essential (primary) hypertension; E78.5 Hyperlipidemia, unspecified
CPT/HCPCS: 36415; 80053; 80307; 85025; 99283

== ENCOUNTER → 2024-01-10 14:55 | Outpatient (BNVA) | payer BC, SELFPAY ==
[2023-09-22 09:15] VITALS: BP 143/80; BMI 27.7
== END ==
PROVIDERS: PCP Family Medicine; Visit Provider Nurse Practitioner Psychiatric/Mental Health
DX: Z79.899 Other long term (current) drug therapy (principal)
CPT/HCPCS: 80053; 80307

== ENCOUNTER → 2024-09-11 10:10 | Outpatient (BNVA) | payer MEDICARE, MEDICAID, SELFPAY ==
[2023-09-22 09:15] VITALS: BP 143/80; BMI 27.7
== END ==
PROVIDERS: PCP Family Medicine; Visit Provider Family Medicine
DX: R74.8 Abnormal levels of other serum enzymes (principal); F10.20 Alcohol dependence, uncomplicated; Z86.19 Personal history of other infectious and parasitic diseases; Z13.6 Encounter for screening for cardiovascular disorders; B19.10 Unspecified viral hepatitis B without hepatic coma; Z12.5 Encounter for screening for malignant neoplasm of prostate
CPT/HCPCS: 80053; 80061; 85025; G0103

== ENCOUNTER → 2025-09-26 13:49 | Outpatient (BNVA) | payer MEDICARE, MEDICAID, SELFPAY ==
[2023-09-22 09:15] VITALS: BP 143/80; BMI 27.7
== END ==
PROVIDERS: PCP Family Medicine; Visit Provider Student in an Organized Health Care Education/Training Program
DX: Z12.11 Encounter for screening for malignant neoplasm of colon (principal); R03.0 Elevated blood-pressure reading, without diagnosis of hypertension
CPT/HCPCS: 99204